=== PATIENT | female | born 1950 | race Caucasian/White ===

== ENCOUNTER 2019-04-11 16:11 | Inpatient (IN) ==
[2019-04-11] MEDS ORDERED: NS 1,000 ML IV ONE ×2 (17:51→19:53)
[2019-04-11] MEDS ORDERED: SODIUM CHLORIDE 0.9% INJ ONE (17:52)
[2019-04-11] MEDS ORDERED: PROTONIX IV ONE (17:52)
--- NOTE | 2019-04-11 17:53 | PROVIDER DOCUMENTATION ---
This chart was entered by Monica Barton Scribe, acting as scribe for Beatriz Vega MD. HPI-General Adult - General Chief Complaint: Vomiting Blood Stated Complaint: vomiting blood Time Seen by Provider: 04/11/19 17:38 Source: patient Allergies/Adverse Reactions: Patient Allergies Allergy/AdvReac Type Severity Reaction Status Date / Time No Known Allergies Allergy Verified 04/11/19 19:07 - History of Present Illness -Gen Adult Nature of Presenting Problems: 68 y/o female presents to ED with hematemesis onset just prior to arrival. Pt reports she has had 5 episodes. Pt states she had an EGD with polypectomy this morning. Estimated 3 cups of blood. Pt is alert and oriented. Location of Pain/Injury: reports: none Pain Radiation: reports: no radiation Quality of Pain: reports: none Severity: reports: mild Onset/Duration: reports: just prior to arrival Timing: reports: still present Context/Activities at Onset: reports: none Modifying Factors: improves with: nothing Associated Symptoms: reports: vomiting, other (hematemesis) Similar Symptoms Previously?: No Recently seen or treated by another doctor?: Yes (EGD/polypectomy this morning) Review of Systems - Adult - REVIEW OF SYSTEMS - ADULT Constitutional: denies: chills, fever Eyes: reports: no symptoms reported Ears, Nose, Mouth & Throat: reports: no symptoms reported Cardiovascular: denies: chest pain, palpitations Respiratory: denies: cough, shortness of breath Gastrointestinal: reports: hematemesis, vomiting. denies: abdominal pain, diarrhea, nausea Genitourinary: reports: no symptoms reported Musculoskeletal: denies: back pain, joint pain Integumentary: reports: no symptoms reported Neurological: denies: dizziness/vertigo, seizure Psychiatric: reports: no symptoms reported Endocrine: reports: no symptoms reported Hematologic/Lymphatic: reports: no symptoms reported Allergic/Immunologic: reports: no symptoms reported All Other Systems: Reviewed and Negative Past History - Adult - PAST MEDICAL HISTORY-ADULT Review of Records: reports: Old Records Reviewed, Nursing Assessment Review, Medications Reviewed Major Childhood Illnesses: reports: denies history Cardiovascular: reports: A-Fib, pacemaker Neurological: reports: CVA Endocrine/Immune: reports: Diabetes Other Conditions: reports: cataract/glaucoma - PRIOR SURGERIES/PROCEDURES Surgical/Procedure History: reports: recent surgery (EGD with polypectomy this morning (04/11/19)), EGD, pacemaker, other (cataract removal; heart sx) - IMMUNIZATION STATUS Childhood Immunizations: See Nurse Assessment Flu Vaccine: See Nurse Assessment - FAMILY HISTORY Family History: reviewed, not pertinent - SOCIAL HISTORY Smoking: non-smoker Substance Use: none/never Alcohol Use Frequency: never Living Situation: family Physical Exam-General - PHYSICAL EXAM-ADULT Initial Vital Signs Reviewed: Yes - CONSTITUTIONAL General Appearance: appears well, alert, no apparent distress, other (blood on shirt of pt) - EYES Eyes: PERRL/EOMI, pink conjunctivae - HEAD, EARS, NOSE, MOUTH & THROAT HENMT: normocephalic/atraumatic, moist mucous membranes, normal ENT inspection - NECK Neck: non-tender, full range of motion - RESPIRATORY Respiratory: chest non-tender, lungs clear, normal breath sounds - CARDIOVASCULAR Cardiovascular: irregularly irregular - GASTROINTESTINAL (ABDOMEN) Abdominal Exam: normal bowel sounds, non tender, soft - MUSCULOSKELETAL Back Exam: normal inspection, no CVA tenderness Extremity: normal range of motion, non-tender, normal gait - SKIN Integumentary: warm/dry, pallor - NEUROLOGIC Neurologic: grossly normal - PSYCHIATRIC Psych/Mental Status: normal mood/affect, normal thought content, normal thought process Progress - PLAN OF CARE/RESULTS Progress/Plan/Lab Results: Vital Signs - 8 hr 04/11/19 16:19 Temperature 97.8 F Pulse Rate 99 H Respiratory Rate 14 Blood Pressure 123/74 O2 Sat by Pulse Oximetry 99 Result Diagrams: 04/11/19 18:18 04/11/19 18:18 - REASSESSMENT Reassessment #1 Time Reassessed: 16:35 Status: improving Reassessment #2 Time Reassessed: 17:50 Status: improving - CONSULTS/PCP/HOSPITALIST Notification #1 *Consult/PCP/Hospitalist*: Dr. Bull Time Discussed: 19:28 Consult Disposition: Admit (Trasfuse 2 until if HCT drop below 27. start protonix drip, sucrlfate, NPO and Dr. Bull will see in the morning. admit.) #2 Consult: Dr. Busby Time Discussed: 19:50 Consult Disposition: Admit (He will speak with hospitalist K[employer] business administration program chair Dr. Rockwell, patient likely need procedure today.) #3 Consult: Dr. Min Time Discussed: 20:10 Consult Disposition: Admit (I confirmed with dr. min tht he got report from Dr. Lucas, I also discussed the case with him. accepted.) Departure - Departure Date of Disposition Decision: 04/11/19 Time of Disposition Decision: 20:10 DIAGNOSIS: Upper GI bleed Hematemesis Qualifiers: Nausea presence: with nausea Qualified Code(s): K92.0 - Hematemesis Anemia Qualifiers: Anemia type: other cause Other causes of anemia: other cause, not classified Qualified Code(s): D64.89 - Other specified anemias Disposition: ADMITTED INPATIENT 09 Certified Medical Emergency: Emergent Condition: Critical Referrals and Follow-Ups: Alessio Corona MD [Primary Care Provider] - - Critical Care Note This patient required my direct & personal management of CC.: No Attestation - Physician/ CASIMIRO Attestation Patient care was provided by Advanced Practice Provider:: No The physician spent face to face time with patient:: Yes Advanced Practice Provider documentation review:: Supervising physician onsite and consulted in the evaluation and care of this patient. The physician did have a face to face encounter with the patient. This chart was documented by the indicated scribe, (Monica Barton Scribe) and accurately reflects the services I performed and decisions made by me, Beatriz Doe MD, as attested by the provider's signature.
[2019-04-11 18:40] LABS: BASO# 0.03 X1000 (0.0-0.2); BASO% 0.3 % (0.0-0.8); EOS# 0.02 X1000 (0.0-0.7); EOS% 0.2 % (0.0-10.0); HEMATOCRIT 27.3 % (37.0-47.0); HEMOGLOBIN 8.5 g/dL (12.0-16.0); IMM GRAN# 0.09 X1000 (0.0-0.04); IMM GRAN% 0.8 % (0.0-0.5); LYMPH# 0.79 X1000 (1.2-3.4); LYMPH% 6.6 % (20.5-51.1); MCH 27.9 PG (27-31); MCHC 31.1 g/dL (33-37); MCV 89.5 FL (81-99); MONO% 4.2 % (1.7-9.3); MPV 11.4 FL (7.4-10.4); NEUT# 10.52 X1000 (1.4-6.5); NEUT% 87.9 % (42.2-75.2); PLT 218 X1000 (130-400); RBC 3.05 XMIL (4.2-5.4); RDW 15.6 % (11.5-14.5); WBC 11.95 X1000 (4.8-10.8)
[2019-04-11 18:44] LABS: INR 1.14; PROTIME 15.6 Seconds (11.0-16.0)
[2019-04-11 18:52] LABS: AGAP 7; ALBUMIN 3.4 g/dL (3.5-5.0); ALKALINE PHOSPHATASE 55 U/L (32-104); BUN 24 mg/dL (8-22); CALCIUM 8.3 mg/dL (8.8-10.2); CHLORIDE 106 mmol/L (98-107); COSMO 286; CREATININE 0.7 mg/dL (0.5-0.9); ESTIMATED GFR > 60; GLUCOSE 209 mg/dL (70-104); GOT 24 U/L (10-30); GPT 23 U/L (10-36); POTASSIUM 4.5 mmol/L (3.5-5.1); SODIUM 138 mmol/L (136-145); TCO2 25 mmol/L (25-35); TOTAL BILIRUBIN 0.45 mg/dL (0.20-1.00); TOTAL PROTEIN 5.1 g/dL (6.3-8.3)
[2019-04-11] MEDS: PROTONIX 80 MG in NS 80 ML IV SCH (20:53)
[2019-04-12] MEDS: HUMULIN R SUBQ SCH ×5 (06:30→21:05)
[2019-04-12] MEDS: PROTONIX 80 MG in NS 80 ML IV SCH (06:30)
[2019-04-12 08:32] LABS: HEMATOCRIT 29.1 % (37.0-47.0); HEMOGLOBIN 9.3 g/dL (12.0-16.0)
--- NOTE | 2019-04-12 08:33 | PROGRESS NOTE ---
DATE: 04/12/2019 SUBJECTIVE: As per the patient, she is feeling a little bit better. She is not complaining of shortness of breath or chest pain at this moment. Some abdominal discomfort. She is completely alert and oriented x3. OBJECTIVE: Vital Signs: Temperature 98.3 degrees, pulse 81, respiratory rate 20, blood pressure 129/59, oxygen saturation 98 on nasal cannula. HEENT: Head normocephalic, no trauma. PERRLA. Neck: Supple. No JVD. No masses. Central trachea. Chest: Clear to auscultation. Mild crepitus scattered at the bases. Cardiovascular: There is a click from previous mechanical valve replacement. Also, she has a pacemaker/defibrillator. No signs of infection. Abdomen: Soft. Mild discomfort to palpation at the level of the epigastric area. Extremities: No edema, no clubbing, no cyanosis. Neurological examination: The patient is alert. She is oriented x3. No focal motor deficits. LABORATORY: Glucose 137, pending BMP and H and H. ASSESSMENT AND PLAN: 1. Upper gastrointestinal bleed. It looks like this patient had an esophagogastroduodenoscopy with possible polypectomy yesterday morning. Then apparently she was doing well and she was tolerating oral, when she started to have hematemesis, bright red blood. Also she has been having bowel movements with dark blood and clots, twice. She has a history of atrial fibrillation, mechanical valve replacement and defibrillator. She does have diabetes, mild congestive heart failure with an ejection fraction of 45 to 50 percent on an echocardiogram done on 03/25/2018. Cardiology Department, as well as Gastroenterology and Surgery Departments were consulted. Will wait for recommendations for now. We will continue with same management, and I will put her on gentle intravenous fluids, around 35 mL/hour since she is on nothing by mouth. Also, I will add levothyroxine intravenous, half of her dose daily. 2. History of atrial fibrillation and mechanical valve replacement. For now, we are going to hold the anticoagulation. Cardiology Department has been consulted. She does have a pacemaker. Her rhythm is stable. 3. Diabetes. Continue with same management. 4. Hypothyroidism. I will give her half of the dose of her daily levothyroxine, intravenous. 5. Mild congestive heart failure, aware. Since this patient is on nothing by mouth, I will give her a really low rate of intravenous fluids at 35 mL/hour. I will wait for Cardiology recommendations. CRITICAL CARE TIME: 45 minutes. cc: Francisco Barrera MD
[2019-04-12 08:48] LABS: AGAP 8; BUN 20 mg/dL (8-22); CALCIUM 8.4 mg/dL (8.8-10.2); CHLORIDE 107 mmol/L (98-107); COSMO 280; CREATININE 0.6 mg/dL (0.5-0.9); ESTIMATED GFR > 60; GLUCOSE 130 mg/dL (70-104); POTASSIUM 4.2 mmol/L (3.5-5.1); SODIUM 138 mmol/L (136-145); TCO2 23 mmol/L (25-35)
--- NOTE | 2019-04-12 08:55 | HISTORY AND PHYSICAL ---
PRIMARY CARE PHYSICIAN: Dr. Corona. CHIEF COMPLAINT: Hematemesis. HISTORY OF PRESENT ILLNESS: This is a 68-year-old female with a history of CVA, diabetes mellitus type 2, hypertension, mechanical heart valve on anticoagulation who apparently underwent EGD with colectomy earlier today. After procedure patient started bleeding and this was cauterized. She went home and she had several more bouts of hematemesis and she started feeling weak. She called her saw maker who recommended she come to the emergency department for further evaluation management. At the time of my examination, the patient states that she had 2 more bouts of hematemesis while she was at the emergency room. However she had denied any headache, fever, chills, chest pain or any weight changes. PAST MEDICAL HISTORY: Includes CVA, diabetes mellitus type 2, hypertension, hyperlipidemia. PAST SURGICAL HISTORY: Pacemaker defibrillator, mechanical mitral valve replacement, hysterectomy, cataract surgery. ALLERGIES: No known drug allergies. CURRENT MEDICATIONS: She does not recollect. Nursing staff will reconcile. SOCIAL HISTORY: No history of smoking, alcohol or illicit drug use. FAMILY HISTORY: Positive for coronary disease in father. REVIEW OF SYSTEMS: Fourteen point review of systems is as in HPI other systems negative. PHYSICAL EXAMINATION: GENERAL: Cooperative, friendly female she is resting comfortably now. VITAL SIGNS: Temperature 97.8 degrees, pulse 99, respiration 14, blood pressure 123/74. HEENT: Atraumatic, normocephalic. Extraocular movements intact. PERRLA. NECK: No masses. CHEST: Clear to auscultation. CARDIOVASCULAR: Regular rate and rhythm. ABDOMEN: Soft. Positive bowel sounds. EXTREMITIES: No edema. NEURO: She is awake, alert, oriented x3. : No bladder distention. SKIN: Warm. LABORATORIES AND STUDIES: WBCs 11.95, hemoglobin 8.5, hematocrit 27.3, platelets 218,000, sodium 138, potassium 4.5, chloride 106, CO2 25, BUN is 24, creatinine 0.7, glucose is 209. ASSESSMENT: A 68-year-old female with a history of cerebrovascular accident, diabetes mellitus type 2, hypertension, hyperlipidemia and mechanical mitral valve replacement on anticoagulation who underwent EGD with a large polyp that was removed. Shortly after procedure she started hemorrhaging and the ulcer/polyp region was cauterized. She went home and she developed several more episodes of hematemesis and subsequently discussed with her saw maker who recommended she come to the emergency department. ED she was evaluated and due to her presenting symptoms she will require blood transfusion, admission for further management. 1. Upper active gastrointestinal bleeding. 2. Status post EGD with polypectomy. 3. Mechanical mitral valve replacement on anticoagulation. 4. Diabetes mellitus type 2. 5. Hypertension. PLAN: 1. We will admit patient to ICU. 2. Keep patient NPO. 3. Continue with blood transfusion. 4. We will consult General Surgery. 5. We will consult her saw maker also. 6. We will consult Cardiology regarding anticoagulation. 7. Monitor blood glucose and put patient on sliding scale insulin regimen. 8. Monitor blood pressure closely. 9. Will put patient on DVT prophylaxis SCD. 10. We will continue to follow and reassess make further recommendation based on patient's clinical course. cc: Don Min MD
[2019-04-12] MEDS ORDERED: DIPRIVAN 1% ONE (09:56)
[2019-04-12] MEDS ORDERED: XYLOCAINE-MPF 2% ONE (09:57)
--- NOTE | 2019-04-12 10:34 | GASTROENTEROLOGY CONSULTATION ---
DATE: 04/12/2019 REASON FOR CONSULTATION: Hematemesis, acute blood loss anemia. HISTORY OF PRESENT ILLNESS: Ms. Valerie Vallejo is a 68-year-old woman with past medical history significant for mechanical mitral valve replacement, on Coumadin, history of atrial fibrillation status post pacemaker, noninsulin-dependent diabetes, history of colonic polyps, who presents with 5 to 6 episodes of hematemesis with bright red blood and some clots. This started after having an EGD yesterday with removal of a gastric polyp. She said that she went home that day and around 3 p.m. started having vomiting after her lunch. She denies any dizziness, lightheadedness, abdominal pain, chest pain, shortness of breath. She has had 3 stools that have been dark. She has none since yesterday afternoon. She has had a colonoscopy in the past, her last was in 2012. A colonoscopy was planned yesterday. However, given her bleeding from her polyp during her procedure that was treated, the colonoscopy was canceled. Her primary GI is Dr. Zeng. PAST MEDICAL HISTORY: As per HPI, otherwise no other history. PAST SURGICAL HISTORY: Mechanical valve repair, status post pacemaker ICD. MEDICATIONS: She is on Coumadin, Coreg, digoxin, furosemide, levothyroxine, lisinopril, metformin, spironolactone, simvastatin. ALLERGIES: No known drug allergies. FAMILY HISTORY: No family history of GI diseases. SOCIAL HISTORY: No smoking, alcohol or drug use. PHYSICAL EXAMINATION: Vital signs: On admission, she was tachycardic to 106, afebrile, blood pressure was in the 120s over 50s to 70s, respiratory rate 14, O2 saturation 98% on room air. General: The patient is awake, alert, oriented, no acute distress. HEENT: Sclerae anicteric. Moist mucous membranes. Extraocular motor intact. Neck: Supple. No JVD. Cardiac: Regular rate and rhythm. No murmurs. Lungs: Clear to auscultation bilaterally. Abdomen: Soft, nontender, nondistended. Normoactive bowel sounds. No rebound or guarding. Extremities: No clubbing, cyanosis, or edema. Neurologic: Nonfocal. LABORATORY DATA: White count of 11.95, hemoglobin 8.5, platelets of 218,000. INR of 1.14. Sodium 138, potassium 4.5, chloride 106, bicarb 25, BUN 24, creatinine 0.7, glucose of 209. LFTs are unremarkable. Unknown baseline hemoglobin. ASSESSMENT AND PLAN: Ms Valerie Vallejo is a 68-year-old woman with a history of mechanical mitral valve on Coumadin, hypertension, noninsulin-dependent diabetes, who presents with acute blood loss anemia in the setting of hematemesis and recent EGD with gastric polyp removal. She was admitted to the ICU and was fluid resuscitated and started on a PPI drip. Her hemoglobin this morning after transfusion of 1 packed red blood cells is 9.3. Her Coumadin has been held and her INR is 1.14. She is currently n.p.o. We will plan for diagnostic EGD today. Continue to trend her hemoglobin and hematocrit every 6 to 8 hours. Transfuse as needed to maintain a hemoglobin between 7 and 8. Recommend continue to hold home blood pressure medications. Sliding scale insulin for diabetes. We will follow with you. Please call with any questions or concerns.
[2019-04-12] MEDS ORDERED: HEPARIN 25,000 UNITS/D5W 25,000 UNIT/250 ML IV.SOLN IV SCH ×4 (11:00→22:24)
[2019-04-12] MEDS: NS 1,000 ML IV SCH (11:33)
[2019-04-12] MEDS: ZOFRAN IV PRN (11:33)
--- NOTE | 2019-04-12 11:37 | OPERATIVE NOTE ---
PROCEDURE DATE: 04/12/2019 PROCEDURE: Upper gastrointestinal endoscopy. PROVIDER: Quincy Jones MD. INDICATIONS: Hematemesis, melena, acute blood loss anemia, history of gastric polyp removal, complicated by post polypectomy bleed on 04/11/2019. MEDICATIONS: Monitored anesthesia care. DETAILS OF OPERATION: Prior to the procedure, a history and physical was performed. The patient medications and allergies were reviewed. The patient's tolerance to previous anesthesia was also reviewed. The risks and benefits of the procedure and sedation options and risks were discussed with the patient. All questions were answered and informed consent was obtained. After reviewing the risks and benefits, the patient was deemed in satisfactory condition to undergo the procedure. The endoscope was passed under direct visualization. Throughout the procedure, the patient's blood pressure, pulse and oxygen saturations were monitored continuously. The endoscope was introduced in the mouth and advanced to the second part of the duodenum. The upper GI endoscopy was accomplished without difficulty. The patient tolerated the procedure well. COMPLICATIONS: No immediate complications. ESTIMATED BLOOD LOSS: Minimal. FINDINGS: There were 2 small clean base esophageal ulcers about 0.5 mm in diameter at the GE junction. There was no stigmata of recent bleeding there. Within the gastric body, there was a gastric ulcer at the site of recent polypectomy with a large adherent clot without active bleeding. 10 mL of epinephrine diluted 1:10,000 were injected in 4 quadrants around the ulcer. The clot was snared off and an Endo clip was noted within the clot. At the base of the ulcer, there remained a small residual clot in the area. 4 Endoclips were deployed; was was dislodged. The duodenal bulb and second portion of the duodenum were normal. There was no bleeding at the end of the procedure. IMPRESSION: Two nonbleeding esophageal ulcers. Post polypectomy gastric ulcer treated with epinephrine and Endo clips. Normal duodenum. RECOMMENDATIONS: Keep patient nothing per oral. Continue fluid resuscitation. Transition IV PPI drip to IV 40 mg twice daily. Continue to trend hemoglobin and hematocrit every 6 to 8 hours. Transfuse as needed to maintain hemoglobin between 7 and 8. Start heparin drip as per Primary Team given presence of mechanical mitral valve and need for anticoagulation. We will follow with you. Please call with any questions or concerns. [facility]
--- NOTE | 2019-04-12 12:58 | CARDIOLOGY CONSULTATION ---
DATE: 04/12/2019 HISTORY OF PRESENT ILLNESS: Patient admitted with hematemesis, has mechanical mitral valve. Cardiology was consulted for anticoagulation recommendations and follow. A 68-year-old, lady with a history of mechanical mitral valve replacement, hypertension, CVA, TIA in the past, diabetes. Underwent an upper GI endoscopy with polypectomy. After the procedure, patient noticed some bleeding. Then this was cauterized. She went home and had hematemesis and melena. Came to the emergency room and was admitted. The patient today underwent upper GI endoscopy. Was noted to have post polypectomy gastric ulcer which was treated with epinephrine and Endo clip. There was 2 nonbleeding esophageal ulcers also noted. Duodenum was normal. The patient has been started back on IV heparin, adjust as per her PTT. PAST MEDICAL HISTORY: 1. History of cardiomyopathy. 2. Systolic heart failure. 3. Moderate aortic stenosis with moderate aortic insufficiency. 4. Mitral valve replacement, mechanical, at [facility] by Dr. Murillo on 07/16/2012. 5. Coumadin therapy, has had bradycardia-tachycardia syndrome, status post AICD placement and [facility] device on 07/22/2012 at [place]. 6. History of atrial fibrillation. 7. Hypertension. 8. Hyperlipidemia. 9. History of anemia. 10. CVA. 11. Hypothyroidism. 12. Diabetes. HOME MEDICATIONS: Included Coumadin as directed, digoxin 125 mcg a day, Coreg 6.25 b.i.d., spironolactone 25, lisinopril 5, levothyroxine 75, Lasix 20, simvastatin 20, iron supplements, metformin 500, glimepiride 2 mg orally. SOCIAL HISTORY: She does not smoke. Does not drink. REVIEW OF SYSTEMS: Cardiovascular System: No chest pain suggestive of angina. There are no palpitations. Central Nervous System: No focal weakness to suggest a CVA or TIA. Genitourinary System: There is no dysuria or hematuria. GI System: As above. PHYSICAL EXAMINATION: Vital Signs: Blood pressure 120/70. Mechanical valve sounds noted. Respiratory System: Normal air entry. There are no crepitations or rhonchi. Abdomen: Soft. Central Nervous System: Was sedated, alert, moving extremities LABORATORY EXAMINATION: Revealed sodium 138, potassium 4.2, BUN 20, creatinine 0.8, total protein 5.1, albumin 3.4, glucose 168. Hemoglobin 8.5, hematocrit 27.3. Today, hemoglobin 9.3, hematocrit 29.1, with a platelet count of 218,000, WBC 11.97. INR 1.14. ASSESSMENT AND PLAN: 1. Ms. Valerie Vallejo is a 68-year-old, lady with a history of cerebrovascular accident, atrial fibrillation, diabetes, hypothyroidism, status post a mechanical valve, mitral replaced in the past. Has automatic implantable cardioverter defibrillator. 2. Admitted with a gastrointestinal bleed. Underwent polypectomy and had an upper gastrointestinal endoscopy. The following procedure was done, nonbleeding ulcers, esophageal, were noted, postpolypectomy gastric ulcer treated with epinephrine and Endoclip. Currently, she is stable. RECOMMENDATIONS: 1. She has been started on IV heparin. We will follow PTT and adjust accordingly. 2. We will restart Coumadin once she has not had any further bleeds. We will check her CBC, hematocrit on a daily basis. 3. She is nauseous at the present time. Recommend followup with medications. 4. Hypertension, diabetes. I have not made any changes to her medication. 5. She recently had an echocardiogram. Please see detailed echocardiogram report dictated. Thank you for the consult. We will follow hospital course. cc: Deo Aguilar MD
[2019-04-12 13:52] LABS: HEMATOCRIT 30.9 % (37.0-47.0)
--- NOTE | 2019-04-12 18:54 | GENERAL SURGERY CONSULTATION ---
DATE: 04/12/2019 REASON FOR CONSULTATION: Gastric bleeding secondary to gastric cancer and polypectomy. HISTORY OF PRESENT ILLNESS: This is a 68-year-old female who has had some anemia for several months, specifically iron deficiency anemia. She underwent fecal occult blood testing by Dr. Hall, which was positive, and then she underwent EGD yesterday by Dr. Zeng. He found a large polypoid mass in the greater curve of the stomach. He resected it; however, there was a vessel underneath and it was bleeding. He did inject it and put a clip on it, and it began to clot, but was still oozing. She was then admitted for further observation. She has had a couple of bloody bowel movements overnight, but has been hemodynamically stable. She underwent a repeat EGD by Dr. Jones this morning which showed an adherent clot and no active bleeding. He removed the clot and there was a smaller clot underneath it which he kept in place. He then injected it with epinephrine again and placed 3 hemoclips around it. The pathology report has come back positive for moderately differentiated adenocarcinoma. Dr. Zeng has informed me that he did not completely resect it. Currently, she is in the ICU on a heparin drip because of a mechanical mitral valve. She has some nausea and mild upper abdominal discomfort, but no severe pain. PAST MEDICAL HISTORY: 1. Mitral valve replacement. 2. Stroke. 3. Type 2 diabetes. 4. Hypertension. 5. Hyperlipidemia. 6. History of cardiomyopathy. 7. Systolic heart failure. 8. Moderate aortic stenosis with moderate aortic insufficiency. 9. History of atrial fibrillation. PAST SURGICAL HISTORY: 1. Mechanical mitral valve replacement. 2. Pacemaker/defibrillator placement. 3. Hysterectomy. 4. Cataract surgery. ALLERGIES: No known drug allergies. SOCIAL HISTORY: Negative for tobacco, alcohol, or illicit drug use. FAMILY HISTORY: Negative for cancer. REVIEW OF SYSTEMS: Ten systems were reviewed and negative except as noted above. CURRENT MEDICATIONS: 1. Heparin drip. 2. Synthroid. 3. Protonix IV. HOME MEDICATIONS: 1. Coumadin. 2. Coreg. 3. Digoxin. 4. Furosemide. 5. Levothyroxine. 6. Lisinopril. 7. Metformin. 8. Spironolactone. 9. Simvastatin. PHYSICAL EXAMINATION: Vital Signs: Temperature 98.8 degrees, pulse 97 to 108, blood pressure 150/48, O2 saturation 95%. General: She is overall weakened in appearance and somnolent, but arousable and able to answer questions and follow commands. HEENT: Normocephalic, atraumatic. Extraocular muscles intact. Pupils equal, round, reactive to light. Sclerae anicteric. Neck: Supple. No thyromegaly. CV: Regular rate and rhythm. Respiratory: No increased work of breathing. She has bilateral breath sounds. GI: Soft. Minimal tenderness. Nondistended. No organomegaly or mass. No hernias. Extremities: No clubbing, cyanosis, or edema. Skin: Warm and dry. No rash. Musculoskeletal: Moves all extremities equally and well. LABORATORY: White blood cell count 11.9, hemoglobin 8.5, 9.3, and 10.0 over the last 18 hours, hematocrit 27.3, 29.1, and 30.9 over the last 18 hours, and platelet count 218,000. INR 1.1. Complete metabolic profile reviewed and unremarkable. Albumin is 3.4. IMAGING: None at this time. ASSESSMENT AND PLAN: A 68-year-old female with newly diagnosed gastric cancer and upper gastrointestinal bleed. This is complicated by her mechanical heart valve requiring anticoagulation. Currently, she appears to be stable and not actively bleeding. We will pursue further staging with CT scan of the chest, abdomen, and pelvis, and pending these results and discussion with Dr. Hall, her oncologist, we will either proceed with definitive cancer surgery, which would include total gastrectomy, versus outpatient endoscopic ultrasound for further staging of the tumor and consideration of neoadjuvant chemotherapy. Neoadjuvant chemotherapy may be complicated by the propensity of this lesion to bleed and the requirement for more urgent surgery. She is on every 6 hour hemoglobin and hematocrit checks at this time. Dr. Jones is going to speak to Dr. Hall today, and we have informed the family of our plans and they understand. cc: Tobi Rockwell MD
--- NOTE | 2019-04-12 19:12 | Diag Imaging Result Doc PS360 ---
EXAM: CT THORAX/ABD/PELVIS W/WO CON 04/12/2019 HISTORY: newly diagnosed gastric cancer TECHNIQUE: This exam was performed using automated exposure control, adjustment of mA or kV according to patient size, and/or use of iterative reconstruction technique. COMMENT: Thorax: There are no previous studies. There are bilateral pleural effusions. There has been sternotomy. There are coronary calcifications. There is a mitral valve prosthesis. There are no apparent filling defects in the pulmonary arteries. The aorta is normal in caliber. There is no evidence of dissection. There is no evidence of significant adenopathy. There is some fluid around the esophagus. There are ill-defined opacities in the posterior costophrenic sulcus of the right lower lobe in the parahilar portions of the left upper lobe and the superior segment of the left lower lobe. There is particularly dense opacity in the left superior segment. The possibility of pneumonia is suggested. The regional skeleton appears to be intact. ABDOMEN: There is mucosal thickening in the distal esophagus and gastric fundus. There is also some apparent thickening in the antrum. The antrum is not well distended however. There is a small calyceal stone in the lower mid right collecting system. There are numerous small calcifications in the gallbladder. The spleen is at the upper limits of normal in size. The right adrenal gland is enlarged with a lateral lobe nodule measuring over 15 mm. There is a brightly enhancing nodule in the lower right hepatic lobe measuring over 12 mm in AP dimension. This may represent a hemangioma. The kidneys are without evidence of hydronephrosis or mass. There is no evidence of significant adenopathy. The pancreas is normal in appearance. There is no evidence of bowel obstruction. Pelvis: The appendix is not enlarged. There are no masses. The urinary bladder is unremarkable in appearance. There is no evidence of free fluid. There is a bone island in the left side of the sacrum. There are some degenerative disc and facet changes in the lumbar spine. IMPRESSION: Mucosal thickening in the distal esophagus and gastric fundus. Bilateral pleural effusions. Nonspecific pulmonary opacities which are likely related to pneumonia. No definite evidence of metastatic disease. Electronically signed by Saurabh Jay 04/12/2019 7:09 PM
[2019-04-12 19:53] LABS: HEMATOCRIT 30.7 % (37.0-47.0); HEMOGLOBIN 9.7 g/dL (12.0-16.0)
[2019-04-12] MEDS ORDERED: HEPARIN IV ONE (20:40)
[2019-04-12] MEDS: SODIUM CHLORIDE 0.9% INJ SCH (21:17)
[2019-04-12] MEDS: PROTONIX IV SCH (21:17)
[2019-04-13 01:38] LABS: HEMATOCRIT 25.8 % (37.0-47.0); HEMOGLOBIN 8.1 g/dL (12.0-16.0)
[2019-04-13 04:56] LABS: BASO# 0.03 X1000 (0.0-0.2); BASO% 0.3 % (0.0-0.8); EOS# 0.01 X1000 (0.0-0.7); EOS% 0.1 % (0.0-10.0); HEMATOCRIT 27.3 % (37.0-47.0); HEMOGLOBIN 8.7 g/dL (12.0-16.0); IMM GRAN# 0.11 X1000 (0.0-0.04); IMM GRAN% 1.1 % (0.0-0.5); LYMPH# 1.22 X1000 (1.2-3.4); LYMPH% 11.8 % (20.5-51.1); MCH 29.1 PG (27-31); MCHC 31.9 g/dL (33-37); MCV 91.3 FL (81-99); MONO# 0.81 X1000 (0.11-0.59); MONO% 7.9 % (1.7-9.3); MPV 10.7 FL (7.4-10.4); NEUT# 8.12 X1000 (1.4-6.5); NEUT% 78.8 % (42.2-75.2); PLT 176 X1000 (130-400); RBC 2.99 XMIL (4.2-5.4); RDW 16.4 % (11.5-14.5)
[2019-04-13 05:10] LABS: AGAP 8; BUN 11 mg/dL (8-22); CALCIUM 8.3 mg/dL (8.8-10.2); CHLORIDE 112 mmol/L (98-107); COSMO 290; CREATININE 0.7 mg/dL (0.5-0.9); ESTIMATED GFR > 60; GLUCOSE 134 mg/dL (70-104); POTASSIUM 3.8 mmol/L (3.5-5.1); SODIUM 145 mmol/L (136-145); TCO2 25 mmol/L (25-35)
[2019-04-13] MEDS: HUMULIN R SUBQ SCH ×4 (06:11→21:49)
[2019-04-13] MEDS: SODIUM CHLORIDE 0.9% INJ PRN (06:18)
[2019-04-13] MEDS: SYNTHROID IV SCH (06:18)
[2019-04-13] MEDS: PROTONIX IV SCH ×2 (08:04→21:46)
[2019-04-13] MEDS: NS 1,000 ML IV SCH (08:04)
[2019-04-13] MEDS: SODIUM CHLORIDE 0.9% INJ SCH ×2 (08:04→21:47)
--- NOTE | 2019-04-13 08:10 | PROGRESS NOTE ---
DATE: 04/13/2019 SUBJECTIVE: This patient seems to be stable, hemoglobin today is 8.7, and WBC is 10.3. She is still on heparin drip. Kidney function is stable. She is complaining of some abdominal discomfort. I believe the plan is to stop the heparin at some point today in the morning, and go for surgery, likely gastrectomy. Gastroenterology Department as well as Surgery Department and Hematology/Oncology Department on board. OBJECTIVE: Vital Signs: Temperature 97.8 degrees, pulse 88, respiratory rate 22, blood pressure 145/52, and oxygen saturation 97% on 4 L of nasal cannula. HEENT: Head normocephalic. No trauma. PERRLA. Neck: Supple. No JVD. No masses. Central trachea. Chest: Clear to auscultation. No wheezing. No rales. Abdomen: Soft. There is some tenderness to palpation at the level of the epigastric area and periumbilical area. Positive bowel sounds. Extremities: No edema. No clubbing. No cyanosis. Neurological: This patient is alert. She is oriented. No focal deficits. LABORATORY: WBC 10.3, hemoglobin 8.7, hematocrit 27.3, and platelets 176,000. Sodium 145, potassium 3.8, chloride 112, bicarbonate 25, BUN 11, creatinine 0.7 glucose 134, and calcium 8.3. ASSESSMENT AND PLAN: 1. Upper GI bleed. It looks like this patient had an EGD with possible polypectomy 2 days ago in the morning. Apparently, she was doing well after the procedure and she was tolerating p.o. Then, she started having hematemesis, again. She was readmitted and a new upper endoscopy was done yesterday again where they found 2 small clean based esophageal ulcers about 0.5 mm in diameter at the GE junction. There was not stigmata of recent bleeding there. Within the gastric body, there was a gastric ulcer at the site of recent polypectomy with a large clot without active bleeding. 10 mL of epinephrine diluted were injected in 4 quadrants around the ulcer. The clot was snared off, and the Endoclip was noted within the clot. At the base of the ulcer, there remained a small residual clot in the in the area. Four Endoclips were deployed, one came off to prevent recurrent bleeding. The duodenal bulb and second portion of the duodenum were normal. There was no bleeding at the time of the procedure. The patient was transferred back to the ICU. She was doing good. She was placed on heparin drip due to her history of mechanical valve. Apparently, the pathology showed a gastric cancer. Surgery Department and Hematology Department were notified. It looks like today she will have surgery, likely a gastrectomy. 2. Gastric cancer as above. 3. History of atrial fibrillation with mechanical valve replacement. For now, we will continue with heparin drip. Cardiology Department as well as Gastroenterology Department on board. Surgery will do a procedure today so likely the heparin drip will be stopped before the procedure. 4. Diabetes. Continue with same management. 5. Hypothyroidism. Continue with IV levothyroxine. 6. Mild CHF, aware. We will continue with gentle IV fluids. Cardiology on board. 7. Anemia, likely due to acute blood loss. We will monitor closely. She is getting an hemoglobin and hematocrit every 6 hours. 8. Yesterday, we did a chest, abdomen and pelvic CT scan with and without contrast that showed mucosal thickening in the distal esophagus and gastric fundus, bilateral pleural effusion, nonspecific pulmonary opacities which are likely related to pneumonia. No definite evidence of metastatic disease. This patient is not having symptoms or signs of pneumonia on my physical exam. She does have some decreased breath sounds at the bases, but she is not coughing. No fever and the leukocyte count is normal so I will continue with the same management for now. CRITICAL CARE TIME: 35 minutes. cc: Francisco Barrera MD
[2019-04-13 09:32] LABS: HEMATOCRIT 28.7 % (37.0-47.0)
--- NOTE | 2019-04-13 09:32 | GENERAL SURGERY PROGRESS NOTE ---
DATE: 04/13/2019 SUBJECTIVE: The patient denies any abdominal pain overnight. She did have one maroon stool this morning. OBJECTIVE: Vital Signs: She is afebrile. Vital signs are stable. Urine output 1300 mL. General: She is awake, alert, oriented x4, in no acute distress. CV: Regular rate and rhythm. Respiratory: Bilateral breath sounds. No work of breathing. GI: Soft, nontender, nondistended. LABORATORY: White blood cell count 10, hemoglobin 8.7, hematocrit 27.3. Electrolytes reviewed and unremarkable. IMAGING: Her chest, abdomen, and pelvis CT scan was reviewed. There is some mucosal thickening of the distal esophagus and gastric fundus. There are bilateral pleural effusions which are not particularly large. There are some nonspecific pulmonary opacities which may be early pneumonia, but there is no evidence of any metastatic disease. ASSESSMENT AND PLAN: A 68-year-old female with newly diagnosed gastric adenocarcinoma. She was admitted for upper gastrointestinal bleed secondary to the biopsy of the gastric mass. That appears to be stable. We are planning diagnostic laparoscopy and total gastrectomy today with a feeding jejunostomy placement. She is on a heparin drip for her mechanical heart valve. This will be turned off prior to surgery and restarted as appropriate in the postoperative period. We have already discussed the risks, benefits, and alternatives with her and her , and they understand and agree to proceed. cc: Tobi Rockwell MD
--- NOTE | 2019-04-13 10:44 | HEMO/ONC CONSULTATION ---
DATE: 04/13/2019 CHIEF COMPLAINT: Possible gastric cancer. HISTORY OF PRESENT ILLNESS: Ms. Vallejo is a 68-year-old female, who presented to the emergency department on 04/11/2018. The patient says that she had an EGD with polypectomy prior that morning. The patient then at home started having increasing amounts of abdominal pain. Then, started having hematemesis prior to arrival. The patient had heart pounding and underwent anticoagulation. Since being admitted, patient had another EGD; was found to have 2 nonbleeding esophageal ulcers at that time and a gastic ulcer. Surgery has been consulted for further evaluation as well. Ms. Vallejo is known to us in our clinic where she has been following up for iron deficiency and B 12 deficiency. The patient last received a dose of IV iron on 04/01/2019. PAST MEDICAL HISTORY: Includes CVA, diabetes mellitus type 2, hypertension, hyperlipidemia, iron deficiency. PAST SURGICAL HISTORY: Pacemaker defibrillator, mechanical mitral valve replacement, hysterectomy, cataract surgery. ALLERGIES: No known drug allergies. SOCIAL HISTORY: Denies any tobacco, alcohol or illicit drug use. FAMILY HISTORY: Coronary artery disease. HOME MEDICATIONS: Coreg, Lovenox, Lasix, Synthroid, lisinopril, Glucophage, simvastatin, spironolactone and Coumadin. REVIEW OF SYSTEMS: Negative, other than in the HPI. PHYSICAL EXAM: Vital Signs: Temperature 97.3 degrees, heart rate 87, respiratory rate 23, blood pressure 129/60, satting 98% on nasal cannula. General: Patient is awake, lying in bed, no acute distress noted. HEENT: Anicteric. Pupils PERRLA. Mucous membranes dry. Neck: Supple. Trachea midline. No JVD. Lymph node survey: No palpable lymphadenopathy. Cardiovascular: S1, S2. Regular rate and rhythm. Chest: Bilateral breath sounds. Clear to auscultation. Abdomen: Soft, nontender. Bowel sounds present in all 4 quadrants. Skin: Warm, dry, and intact. Neurologic: Alert and oriented x3. No focal deficits noted. LABORATORY DATA: White blood cell count 10.30, hemoglobin 9.7, hematocrit 27.3, platelets are 2166. Potassium 3.8, BUN 11, creatinine 0.7. RADIOLOGY RESULTS: CT of chest, abdomen and pelvis shows mucosal thickening, polyps, gastric ulcers, bilateral pleural effusions, and pulmonary opacities which are likely related to pneumonia, and does have definite evidence of metastatic disease. ASSESSMENT AND PLAN: 1. Possible gastric cancer: The patient recently had esophagogastroduodenoscopy with polypectomy prior to coming to the emergency department that day. Pathology results are pending on that. The patient, due to possible gastric cancer, will be having laparotomy with Dr. Rockwell. Depending on what he find there, further plans will be made at that time. We will continue to monitor and follow along at this time. 2. Upper gastrointestinal bleed: The patient is status post esophagogastroduodenoscopy, where she was found to have gastric ulcers and was cauterized at that time. The patient also had polypectomy then. Continue to monitor closely. Continue to transfuse as needed. Continue recommendations per Gastroenterology. 3. Anemia: Hemoglobin and hematocrit stable, with hemoglobin less than 8.7 and hematocrit 27.3. Continue to monitor closely and transfuse as needed. 4. Atrial fibrillation with mechanical valve replacement: Continue recommendations per Cardiology and Primary Medical Team. 5. Diabetes. Continue recommendations per Primary Medical Team. Plan of care discussed with Dr. Hall. Dictated by AUDREY Jarquin for Eddie Hall MD Patient seen and examined. As above. Patient with known mechanical valve on anticoagulation. Recently however she was noted to be heme-positive and we referred her to GI for evaluation. EGD revealed 2 small ulcers in the esophagus and a polypoid mass in the stomach. Polypectomy was performed and pulmonary biopsies revealed adenocarcinoma. She was admitted with GI bleeding several hours after her EGD. Since admission repeat EGD has been performed by Dr. Brumfield and reportedly she was noted to have another and clot in the gastric ulcer. Her bleeding has stopped. Proceed with laparoscopy and if negative, plan to do a gastric cancer surgery. If laparoscopy positive for metastatic malignancy, plan to perform a simple resection of the bleeding ulcer area. Plan discussed with Dr. Rockwell. Continue anticoagulation for mechanical valve per cardiology. Eddie Hall M.D. cc: Eddie Hall MD [facility]
[2019-04-13] MEDS ORDERED: DIPRIVAN 1% ONE (11:37)
[2019-04-13] MEDS ORDERED: XYLOCAINE-MPF 2% ONE (11:37)
[2019-04-13] MEDS ORDERED: SODIUM CHLORIDE 0.9% 10 ML ONE (11:38)
[2019-04-13] MEDS ORDERED: NORCURON ONE (11:38)
[2019-04-13] MEDS ORDERED: QUELICIN (DOSE) ONE (11:39)
[2019-04-13 12:26] LABS: HEMATOCRIT 28.1 % (37.0-47.0); HEMOGLOBIN 8.8 g/dL (12.0-16.0)
[2019-04-13] MEDS ORDERED: INVANZ 1 GM/NS 1 GM/50 ML IVPB IV ONE (12:30)
[2019-04-13] MEDS ORDERED: SENSORCAINE 0.5%-EPI 1:200,000 ONE (12:47)
[2019-04-13] MEDS ORDERED: LR 1,000 ML ONE ×2 (12:47→14:13)
--- NOTE | 2019-04-13 13:08 | EKG Report ---
Test Performed on : 04/13/2019 12:57:49 PM Test Reason : DR ORDERED Blood Pressure : / mmHG Vent. Rate : 135 BPM Atrial Rate : 096 BPM P-R Int : 000 ms QRS Dur : 086 ms QT Int : 310 ms P-R-T Axes : 000 042 237 degrees QTc Int : 465 ms Atrial fibrillation. with rapid ventricular response. with premature ventricular or aberrantly conduc melissa complexes. Posterior infarct , possibly acute ST & T wave abnormality, consider inferolateral ischemia ACUTE OK / STEMI Abnormal ECG No previous ECGs available Confirmed by Chris JEAN-BAPTISTE, Gio Ogden ([id number]) on 04/15/2019 10:52:46 AM
[2019-04-13] MEDS ORDERED: EXPAREL 1.3% ONE (14:02)
[2019-04-13] MEDS ORDERED: SODIUM CHLORIDE 0.9% ONE (14:03)
[2019-04-13] MEDS ORDERED: LANOXIN IV ONE (14:24)
[2019-04-13] MEDS ORDERED: CARDIZEM ONE (14:25)
[2019-04-13] MEDS: MARCAINE 0.25% ONE ×2 (15:24→19:17)
[2019-04-13] MEDS: MARCAINE 0.25% PF/EPI 1:200,000 ONE ×2 (15:25→18:18)
[2019-04-13 15:27] LABS: URINE SOURCE CATH
[2019-04-13] MEDS ORDERED: OFIRMEV 1000 MG/ISOTONIC SOLN 1,000 MG/100 ML BOTTLE ONE (15:29)
[2019-04-13] MEDS ORDERED: NEO-SYNEPHRINE ONE (15:29)
[2019-04-13 15:31] LABS: BILIRUBIN URINE NEGATIVE (NEGATIVE); BLOOD URINE NEGATIVE (NEGATIVE); COLOR YELLOW; GLUCOSE URINE NEGATIVE (NEGATIVE); KETONE URINE TRACE mg/dL (NEGATIVE); LEUKOCYTES URINE NEGATIVE (NEGATIVE); NITRITE URINE NEGATIVE (NEGATIVE); PROTEIN URINE NEGATIVE (NEGATIVE); TURBIDITY URINE CLEAR (CLEAR); UR EPITHELIAL CELLS <10 /HPF (<10); URINE BACTERIA NEGATIVE /HPF; URINE RBC <10 /HPF (<10); URINE WBC <10 /HPF (<10); UROBILINOGEN URINE NORMAL (NORMAL)
[2019-04-13] MEDS ORDERED: ZOFRAN ONE (15:37)
[2019-04-13] MEDS ORDERED: DECADRON ONE (16:11)
[2019-04-13] MEDS ORDERED: ROBINUL ONE (18:15)
[2019-04-13] MEDS ORDERED: FENTANYL ONE (18:32)
[2019-04-13] MEDS ORDERED: CARDIZEM 125/NS 125 MG/125 ML IVPB IV SCH (19:00)
[2019-04-13] MEDS ORDERED: CORDARONE 360 MG/D5W 360 MG/200 ML IV.SOLN IV ONE (19:04)
--- NOTE | 2019-04-13 19:29 | Diag Imaging Result Doc PS360 ---
EXAM: CHEST-PORTABLE - 04/13/2019 HISTORY: status post central line and laparotomy TECHNIQUE: Portable chest COMPARISON: 04/12/2019 CT thorax FINDINGS: There is a right subclavian central venous catheter with its tip at or near the cavoatrial junction. There is no evidence of pneumothorax. There is mild cardiomegaly. There is a prosthetic mitral valve. There are hazy bilateral infiltrates which are most dense at the left perihilar region. These may relate to pulmonary edema and/or pneumonia. There is a nasogastric tube which can be followed to the stomach. IMPRESSION: Tip of central venous catheter at or near caval atrial junction. No evidence of pneumothorax. The edema and/or pneumonia, most prominent at the left perihilar region. Mild cardiomegaly. Electronically signed by Jerson Novoa 04/13/2019 7:27 PM
[2019-04-13 20:30] LABS: HEMATOCRIT 28.5 % (37.0-47.0); HEMOGLOBIN 8.8 g/dL (12.0-16.0)
[2019-04-13] MEDS ORDERED: HEPARIN SUBQ ONE (20:39)
[2019-04-13] MEDS ORDERED: DILAUDID IV PRN (20:46)
[2019-04-13] MEDS: DILAUDID IV PRN (21:39)
--- NOTE | 2019-04-13 23:35 | PROVIDER PROGRESS NOTE ---
Progress Note SUBJECTIVE: No acute overnight events. No N/V/F, CP, SOB, abdominal pain. She had 3 melenic stools since EGD yesterday; however, she has not required further blood transfusion. OBJECTIVE: Last Vital Signs Temp 98.1 F 04/13/19 11:00 Pulse 116 H 04/13/19 19:04 Resp 28 H 04/13/19 19:04 BP 101/68 04/13/19 19:01 Pulse Ox 95 04/13/19 19:04 Height 5 ft 6 in Weight 129 lb 9.6 oz GEN: awake, alert, NAD HEENT: anicteric, MMM, EOMI NECK: supple, no JVD PULM: CTAB, no wheezing CV: irregularly irregular, MV click ABD: soft NT/ND, NABS EXT: no cce NEURO: nonfocal LABS: 04/13/19 04/13/19 04/13/19 01:25 04:20 04:20 WBC 10.30 Hgb 8.1 L D Plt Count 176 Sodium 145 Potassium 3.8 Chloride 112 H Carbon Dioxide 25 BUN 11 Creatinine 0.7 Glucose 134 H EGD 04/12 IMPRESSION: Two nonbleeding esophageal ulcers. Post polypectomy gastric ulcer (1.5cm) treated with epinephrine and Endo clip x3. Normal duodenum. CT chest, abdomen, and pelvis were negative for metastasis. ASSESSMENT AND PLAN: Ms Valerie Vallejo is a 68-year-old woman with a history of mechanical mitral valve on Coumadin, hypertension, noninsulin-dependent diabetes, who presents with acute blood loss anemia in the setting of hematemesis and recent EGD with gastric polyp removal. EGD yesterday showed two non-bleeding esophageal ulcers and post-polypectomy gastr ulcer treated with epinephrine and endoclip x4. Preliminary pathology from gastric polyp shows moderately differentiated adenocarcinoma. Patient went to OR today for laprascopic staging. #GIB: 2/2 resection on gastric mass and postpolypectomy ulcer: treated endoscopically - trending H/H, transfuse prn goal hgb 7-8 - continue IV PPI BID - IVFs - patient went to OR for surgery today #Gastric cancer: discussed plan with Dr. Hall yesterday; formal consultation from oncology today #Mechanical valve: on heparin drip #Afib: heparin as above Will follow with you. Please call with questions
[2019-04-14] MEDS: DILAUDID IV PRN ×7 (00:59→20:34)
[2019-04-14 01:06] LABS: HEMATOCRIT 26.9 % (37.0-47.0); HEMOGLOBIN 8.4 g/dL (12.0-16.0)
[2019-04-14] MEDS ORDERED: CORDARONE 540 MG in D5W 289.2 ML IV ONE (02:00)
[2019-04-14 06:16] LABS: HEMATOCRIT 26.5 % (37.0-47.0); HEMOGLOBIN 8.2 g/dL (12.0-16.0); MCH 28.6 PG (27-31); MCHC 30.9 g/dL (33-37); MCV 92.3 FL (81-99); MPV 11.4 FL (7.4-10.4); RBC 2.87 XMIL (4.2-5.4); RDW 16.5 % (11.5-14.5); WBC 22.52 X1000 (4.8-10.8)
[2019-04-14] MEDS: SYNTHROID IV SCH (06:28)
[2019-04-14] MEDS: SODIUM CHLORIDE 0.9% INJ PRN (06:29)
[2019-04-14 06:37] LABS: AGAP 8; ALB/GLOB RATIO 1.6; ALBUMIN 2.7 g/dL (3.5-5.0); ALKALINE PHOSPHATASE 43 U/L (32-104); BUN 12 mg/dL (8-22); CALCIUM 7.4 mg/dL (8.8-10.2); CHLORIDE 109 mmol/L (98-107); COSMO 288; CREATININE 0.6 mg/dL (0.5-0.9); ESTIMATED GFR > 60; GLUCOSE 157 mg/dL (70-104); GOT 45 U/L (10-30); GPT 48 U/L (10-36); POTASSIUM 4.4 mmol/L (3.5-5.1); SODIUM 143 mmol/L (136-145); TCO2 26 mmol/L (25-35); TOTAL BILIRUBIN 0.33 mg/dL (0.20-1.00); TOTAL PROTEIN 4.4 g/dL (6.3-8.3)
[2019-04-14] MEDS: HUMULIN R SUBQ SCH ×4 (06:42→20:34)
[2019-04-14] MEDS ORDERED: HEPARIN 25,000 UNITS/D5W 25,000 UNIT/250 ML IV.SOLN IV SCH ×3 (07:07→09:00)
--- NOTE | 2019-04-14 07:25 | Diag Imaging Result Doc PS360 ---
EXAM: CHEST-PORTABLE INDICATION: SOB TECHNIQUE: One view COMPARISON: 04/13/2019 FINDINGS: Support tubes and lines are in stable positions. There has been interval slight improvement of the perihilar infiltrates during the interval, likely representing improved edema and pulmonary venous congestion. No new consolidation is identified. Cardiac silhouette is stable. IMPRESSION: Interval slight improvement. Electronically signed by Alessio Hernandes 04/14/2019 7:23 AM
--- NOTE | 2019-04-14 07:30 | EKG Report ---
Test Performed on : 04/14/2019 06:53:16 AM Test Reason : afib Blood Pressure : / mmHG Vent. Rate : 084 BPM Atrial Rate : 079 BPM P-R Int : 000 ms QRS Dur : 166 ms QT Int : 436 ms P-R-T Axes : -29 -70 076 degrees QTc Int : 515 ms Ventricular-paced rhythm Abnormal ECG When compared with ECG of 13-APR-2019 12:57, (Unconfirmed) Electronic ventricular pacemaker has replaced Atrial fibrillation. Vent. rate has decreased BY 51 BPM Confirmed by Chris JEAN-BAPTISTE, Gio Ogden ([id number]) on 04/15/2019 10:53:38 AM
[2019-04-14] MEDS: PROTONIX IV SCH ×2 (08:27→20:34)
[2019-04-14] MEDS: LIPOSYN 20% 250 ML IV SCH (08:28)
[2019-04-14] MEDS: CLINIMIX E 4.25%-5% SOLUTION 1,000 ML IV SCH (08:28)
[2019-04-14] MEDS: SODIUM CHLORIDE 0.9% INJ SCH ×2 (08:28→20:34)
[2019-04-14] MEDS ORDERED: HEPARIN 25,000 UNIT in NS 250 ML IV SCH (08:30)
[2019-04-14] MEDS ORDERED: LANOXIN IV SCH (09:00)
--- NOTE | 2019-04-14 09:30 | PROGRESS NOTE ---
DATE: 04/14/2019 SUBJECTIVE: This patient is status post total gastrostomy, a feeding jejunostomy has been also placed. She has been placed back on the heparin drip. I will start this patient on Clinimix and lipids as well. Chemistry seems to be stable, a little bit elevated AST and ALT, but we will monitor on that. Her white blood cells increased from 10 to 22, but this is likely reactive. X- ray looks better today. Temperature has been fine. No signs of fever. So, for now we will just monitor. OBJECTIVE: Vital Signs: Temperature 97.3 degrees, pulse 92, respiratory rate 21, blood pressure 136/46, oxygen saturation 99 on a Venturi mask. HEENT: Head normocephalic, no trauma. PERRLA. Neck: Supple. No JVD. No masses. Central trachea. Chest: Decreased breath sounds at the bases with some crepitus. Abdomen: Soft. She has tenderness to palpation at the level of the periumbilical area, but basically generalized. She has a couple dressings and they look clean. She has a feeding tube without any source of infection or problem that I can see. Decreased bowel sounds. Extremities: No edema, no clubbing, no cyanosis. Neurological examination: The patient is alert. She is oriented. No focal deficits. She is sleepy. LABORATORY: WBC 22.5, hemoglobin 8.4, hematocrit 26.9, platelets 215. Sodium 143, potassium 4.4, chloride 109, bicarbonate 26. BUN 12, creatinine 0.6, glucose 157, calcium 7.4. AST 45, ALT 40, alkaline phosphatase 43, albumin 2.7. ASSESSMENT AND PLAN: 1. Newly diagnosed gastric adenocarcinoma, admitted for upper gastrointestinal bleed, status post total gastrectomy with feeding jejunostomy placement, postoperative day one. 2. We will restart this patient on the heparin drip. We will put this patient on Clinimix and lipids as well since she is not tolerating oral at this moment. We will continue monitoring this patient closely in the intensive care unit. It looks like she tolerated well the procedure. 3. Upper gastrointestinal bleed as above. 4. History of atrial fibrillation with mechanical valve replacement. Continue with the heparin drip. Cardiology Department on board. She has been placed on digoxin, and also she received a dose of amiodarone. Her heart rate is controlled. Blood pressure is stable. Cardiology Department following this patient. 5. Diabetes. Continue with same management. Seems to be stable. 6. Hypothyroidism. Continue with intravenous levothyroxine. 7. Mild congestive heart failure, aware. We will continue with gentle intravenous fluids. Cardiology on board. 8. Anemia, likely secondary to acute blood loss. We will monitor closely. We will continue monitoring the hemoglobin and hematocrit every 6 hours. 9. Chest x-ray looks better today. I believe the edema is going down, but she is on a Ventimask. We will monitor. 10. Leukocytosis. I believe this is reactive. She is not having fever and the leukocyte count before surgery was 10. We will monitor this patient on a daily basis. No fever, no chills, no cough, no phlegm. CRITICAL CARE TIME: 35 minutes. cc: Francisco Barrera MD
[2019-04-14] MEDS ORDERED: BLISTEX MEDICATED BERRY LIP BALM TOP PRN (10:14)
[2019-04-14] MEDS ORDERED: NS 250 ML IV ONE (10:38)
[2019-04-14 11:25] LABS: HEMATOCRIT 26.1 % (37.0-47.0)
--- NOTE | 2019-04-14 11:46 | GENERAL SURGERY PROGRESS NOTE ---
DATE: 04/14/2019 SUBJECTIVE: The patient reports feeling very sleepy, but denies severe pain, shortness of breath or nausea. OBJECTIVE: Vital Signs: She is afebrile. Her pulse has been 80s to 90s throughout the night, blood pressure 118-130 systolic overnight, O2 saturation 98% to 99%, respiratory rate 18 to 24. Urine output 30 mL/hour postoperatively. NG tube scant. General: She is somnolent, but easily arousable and answers questions appropriately. CV: Regular rate and rhythm. Respiratory: Bilateral breath sounds. No increased work of breathing. No rales, no wheeze. GI: Soft, nondistended, appropriately tender. Incisional dressings are clean and dry. Bowel sounds are quiet. LABORATORY: White blood cell count 22,000, hemoglobin 8.2, hematocrit 26.5, platelet count 215. Electrolytes reviewed and unremarkable. IMAGING: A chest x-ray last night showed successful central venous line placement and no pneumothorax. There is some question of edema or pneumonia in the left perihilar region with hazy bilateral infiltrates. ASSESSMENT AND PLAN: A 68-year-old female postoperative day 1 total gastrectomy with perioperative atrial fibrillation and chronic need for anticoagulation due to mechanical heart valve. She is hemodynamically stable. She is being maintained on an amiodarone drip currently. Cardiology is following the patient. I would plan to restart the heparin this morning. We will continue careful observation of her hemoglobin and hematocrit in the immediate postoperative period today. We are going to change her normal saline to Clinimix and lipids to provide her some nutrition and maintenance fluids. I am consulting physical therapy for assistance with physical activity and ambulation. I do hope to get her out of the bed into a chair today. Over the next few days, I hope to remove her nasogastric tube, Palmer catheter and arterial line. We will continue flushing the J-tube for now. No enteral feeds at this time. I do not think she needs antibiotics, but I feel like the infiltrates on chest x-ray are probably more edema than pneumonia, and her leukocytosis is just reactive from surgery yesterday. cc: Tobi Rockwell MD
--- NOTE | 2019-04-14 12:06 | HEMO/ONC PROGRESS NOTE ---
DATE: 04/14/2019 SUBJECTIVE: Patient lying in bed. The patient still has some mild melena. No medical complaints at this time. OBJECTIVE: Vital Signs: Temperature of 97.3 degrees, heart rate 83, respiratory rate 15, blood pressure is 137/57. General: Patient is awake, lying in bed, no acute distress noted. HEENT: Anicteric. Pupils PERRLA. Mucous membranes dry. Cardiovascular: S1, S2. Regular rate and rhythm. Chest: Bilateral breath sounds bilaterally. Abdomen: Soft, mildly tender, dressing intact. Neurologic: Alert and oriented x3. No focal deficits noted. LABORATORY DATA: White blood cell count is 22.5, hemoglobin 8.4, hematocrit 26.9, platelets are 215. Potassium 4.4, BUN 12, creatinine 0.6. ASSESSMENT AND PLAN: 1. Gastric cancer: The patient had surgery yesterday with Dr. Rockwell. Pathology results pending. We will continue to follow up on those results. At this time, continue to monitor. 2. Gastrointestinal bleed: Hemoglobin and hematocrit continue to be stable. Continue to monitor and transfuse as needed. 3. Anemia: Hemoglobin and hematocrit stable. Today, hemoglobin is 8.5 and hematocrit is 26.9. Continue to monitor and transfuse as needed. 4. Atrial fibrillation. Continue recommendations from Cardiology. Dictated by AUDREY Jarquin for Eddie Hall MD Patient seen and examined. As above. Thrombocytopenia stable, last day. INR is elevated likely due to liver failure. Treat with FFP and vitamin K as needed. Continue to monitor CBC and transfuse as previously advised. Eddie Hall M.D. cc: Eddie Hall MD [facility]
--- NOTE | 2019-04-14 13:33 | CARDIOLOGY PROGRESS NOTE ---
DATE: 04/14/2019 SUBJECTIVE: The patient is sleepy, sedated. Denies shortness of breath or chest pain. She is postoperative. PHYSICAL EXAMINATION: Vital Signs: Blood pressure was 153/54, mechanical prosthetic valve sounds noted. Respiratory: Distant breath sounds. Normal air entry. Abdomen: Post surgery. LABORATORY EXAMINATION: Revealed sodium 143 potassium 4.4, BUN 12, creatinine 0.6. Hematology: WBC 22.52, hemoglobin 8.2, hematocrit 26, platelet count of 215,000. The patient has received a blood transfusion. PROBLEM LIST: From a cardiac standpoint. The patient has: 1. Mechanical mitral valve, in addition has moderate aortic stenosis with moderate aortic insufficiency with preserved left ventricular systolic function. 2. Chronic atrial fibrillation. 3. Hypertension. 4. Hyperlipidemia. 5. Cerebrovascular accident. 6. Hypothyroidism. 7. Diabetes. ASSESSMENT: The patient admitted with gastrointestinal bleed. Biopsy revealed gastric cancer yesterday. Patient underwent patient underwent a total gastrectomy. RECOMMENDATIONS: 1. As far as atrial fibrillation is concerned, I have started her on IV amiodarone. We will leave her on IV amiodarone maintenance therapy as she is n.p.o. and she had atrial fibrillation with rapid ventricular rate with low blood pressure. Right now, her vital signs are stable. I would recommend continuing the IV amiodarone at maintenance dose. Once she is able to take her p.o. medications, we will restart her back on her home medications of Coreg and digoxin. I have stopped the digoxin given the fact that I put her on amiodarone. 2. She has a mechanical mitral valve. IV heparin started. Follow APTT given her mechanical valve. 3. If she has further is GI bleed or further drop in hemoglobin and hematocrit, she will be transfused as required. 4. Diabetes. Continue with medications as planned. 5. Blood pressure has gone. Up at the present time, I have not added any antihypertensive medications. We will see how she does and give IV hydralazine if required. Once she takes a p.o. medications, we will put her back on her home medications. cc: Deo Aguilar MD
[2019-04-14] MEDS ORDERED: DILAUDID IV ONE (13:35)
--- NOTE | 2019-04-14 14:35 | ECHO REPORT ---
ORDER DATE: 04/14/2019 INDICATION: Atrial fibrillation. Evaluate LV function. FINDINGS: This is a two-dimensional study only. Optison contrast was used. FINDINGS: 1. Linear artifact consistent with device leads is noted in the right heart chambers. 2. Normal RV size and systolic function. 3. Mechanical mitral prosthetic was noted with no Doppler evaluation of the valve. 4. Normal LV size with an end-diastolic dimension of 5.6 cm. Mild left ventricular hypertrophy with a posterior and interventricular septal wall thickness of 1.0 and 1.3 cm respectively. Borderline normal to normal LV systolic function with an estimated EF of 50 to 55 percent. No obvious segmental abnormalities were identified. 5. The aortic valve appears somewhat calcified. This is not well visualized. It appears to open reasonably well. 6. No pericardial effusion seen. cc: MD Deo Ruiz MD
--- NOTE | 2019-04-14 15:38 | GASTROENTEROLOGY PROGRESS NOTE ---
DATE: 04/14/2019 SUBJECTIVE: The patient is currently lying in bed. Her family is present at the bedside. The patient had a gastrectomy done yesterday by Dr. Rockwell. She also had G-tube placement for feeding. She has been afebrile for the last 24 hours. She was noted to have elevated white count this morning. She is being monitored by primary care team and surgery team. OBJECTIVE: Vitals: Temperature of 96.9, pulse rate of 85, respiratory rate of 17, blood pressure 141/48, saturating 100% on 50% FiO2 Venturi mask. Body weight of 140 pounds, BMI 22.6 kg. General: Ms. Vallejo is a moderately-built, well-nourished female lying in bed. No acute distress. HEENT: Pale conjunctivae. No icterus. Face mask in place. Neck: Supple. Abdomen: Surgical dressing noted. J-tube noted. Abdomen appropriately tender from recent surgery. Extremities: No cyanosis, clubbing. Neurologic: Neuro-rosa, she is awake, alert. LABS: Hemoglobin and hematocrit is 8.4 and 26.9, white count of 22.5, platelet count of 215. Sodium 143, potassium 4.4, chloride 109, bicarbonate 26/ anion gap of 8. BUN of 12, creatinine 0.6, glucose of 137, calcium is 7.4, total bilirubin is 0.33. AST 45, ALT 48, alkaline phosphatase 43, total protein is 4.4, albumin of 2.7. X-RAYS: Chest x-ray showed interval slight improvement of perihilar infiltrates during the interval. IMPRESSION AND PLAN: 1. Newly diagnosed gastric adenocarcinoma localized in the gastric polyp, which was removed on Thursday04/11/[address] Zeng at [facility], which is complicated with upper gastrointestinal bleeding. Status post esophagogastroduodenoscopy with hemostasis. Now she is status post partial gastrectomy and jejunostomy tube placement per Dr. Rockwell. This is postoperative day 1. Dr. Rockwell is following. 2. Anemia. Watch for now. Transfuse as needed. 3. Leukocytosis being monitored by primary team. 4. History of atrial fibrillation. Aware. Cardiology is on board. 5. History of mechanical valve replacement. She has been on heparin drip. 6. Hypothyroidism. She is on intravenous levothyroxine. 7. Diabetes. She is on sliding scale insulin. 8. Mild congestive heart failure. Aware. 9. Gastrointestinal prophylaxis with Protonix twice daily. 10. Nutrition: She is being started on fat emulsion and Clinimix per the primary care team. The above plans discussed with the patient and family at bedside. All questions answered. Please call us with any further questions. cc: MD Alessio Gallo MD Omar J. Sosa-Chirinos, MD Jason R. Seale, MD
[2019-04-14 17:00] LABS: HEMATOCRIT 23.6 % (37.0-47.0); HEMOGLOBIN 7.1 g/dL (12.0-16.0)
[2019-04-14] MEDS: CORDARONE 360 MG/D5W 360 MG/200 ML IV.SOLN IV SCH (18:06)
[2019-04-14] MEDS ORDERED: PROTONIX IV SCH (19:54)
[2019-04-14] MEDS ORDERED: CORDARONE 540 MG in D5W 289.2 ML IV SCH (20:00)
[2019-04-15 00:36] LABS: HEMATOCRIT 23.5 % (37.0-47.0); HEMOGLOBIN 7.1 g/dL (12.0-16.0)
[2019-04-15] MEDS: DILAUDID IV PRN ×9 (01:06→22:54)
[2019-04-15] MEDS: CLINIMIX E 4.25%-5% SOLUTION 1,000 ML IV SCH ×2 (03:18→22:54)
--- NOTE | 2019-04-15 04:20 | OPERATIVE NOTE ---
PROCEDURE DATE: 04/13/2019 PREOPERATIVE DIAGNOSES: 1. Gastric adenocarcinoma. 2. Upper gastrointestinal bleed. POSTOPERATIVE DIAGNOSES: 1. Gastric adenocarcinoma. 2. Upper gastrointestinal bleed. PROCEDURES: 1. Diagnostic laparoscopy with biopsy of the liver x2. 2. Open subtotal gastrectomy with Elizabeth-en-Y gastrojejunostomy. 3. Insertion of feeding Witzel-type jejunostomy. SURGEONS: Dr. Tobi Rockwell. ASSISTANTS: 1. Dr. Prabhjot Purvis. 2. Dr. Abel Denis. ESTIMATED BLOOD LOSS: 100 mL. COMPLICATIONS: None apparent. SPECIMENS: 1. Portions of 2 lesions of the left lobe of the liver. 2. The stomach and a D1 lymphadenectomy, including nodes from the right cardiac lesser curve, greater curve, suprapyloric, antropyloric, and left gastric artery regions. FINDINGS: The patient had 2 small but nodular looking lesions along the edge of the left lobe of the liver. However, frozen section examination was negative for malignancy. There were no other findings of peritoneal studding, carcinomatosis, omental lesions, or pathologically enlarged lymph nodes. The lesion in the stomach was identified on the back table after resection and found to be in the upper half of the body of the stomach near the greater curve, and was at least 7 cm from the proximal margin. TECHNIQUE: She was brought to the operating room and placed supine on the table. General anesthesia was induced. A Palmer catheter was placed. An arterial line and central venous catheter were placed by the anesthesiologist as well as a TAP block. She was then prepped and draped in the usual sterile fashion after all bony prominences were appropriately padded. I began with an 11 mm incision above the umbilicus, and entered the peritoneal cavity under direct vision with the Optiview device. Pneumoperitoneum was established. The camera was inserted. There was no evidence of injury to underlying structures. Two 5 mm incisions and ports were placed in the left and right mid abdomens under direct vision. Dr. Fraser was present and helpful for the initial portions of the case, which included surveying the abdomen laparoscopically and identifying the lesions in the left lobe of the liver for biopsy. He later dropped out prior to my opening the abdomen for the resection so that he could perform another operation, and Dr. Denis assisted me during the majority of the dissection and resection. Then Dr. Purvis rejoined me and Dr. Denis dropped out, and Dr. Purvis assisted with the anastomoses. He was helpful for retraction and exposure. Dr. Denis was very helpful during his portions of the case for retraction and exposure of all the significant dissection of the stomach. The laparoscopy portion was performed and I examined the peritoneal surfaces and all of the abdomen with the findings noted in the liver. A biopsy forceps was brought in and I was able to take good pieces of each and send them down for frozen section. There was minor bleeding from the liver bed, which was controlled with cautery. One frozen section came back negative for malignancy. We then proceeded to open the abdomen and pursue a resection for curative intent. An incision was made from the subxiphoid area down to the umbilicus with a knife and carried down through the subcutaneous tissue with cautery. The fascia was opened with cautery. The peritoneum was then opened carefully with cautery, avoiding injury to underlying structures. An upper hand retractor was then placed to better expose the upper abdomen. Dr. Denis then joined me and was very helpful for helping mobilize the colon, and for the dissection and initial resection. We began by lifting up the omentum from the transverse colon and we divided the omentum just superior to the transverse colon and entered the lesser sac. I then continued resecting the omentum off of the transverse colon until it was completely freed from the colon. I was able to lyse adhesions of the posterior stomach to the retroperitoneum of the pancreas with cautery. I then followed the lesser curve and divided the lesser curve with the LigaSure device, this included the short gastric vessels. I then followed the greater curvature and divided the left gastroepiploic artery and short gastric vessels with the LigaSure device all the way up to the left raymond of the diaphragm. The lesion was palpated along the upper half of the stomach near the greater curve. However, it was not in the cardia and not at the esophagogastric junction, and I felt like a subtotal gastrectomy could be performed leaving a cuff of stomach to sew the anastomosis to proximally. We then continued dissecting the transverse colon away from the distal stomach and pylorus carefully with cautery and the LigaSure device, protecting the transverse colon mesentery. We divided the right gastroepiploic vessel with the LigaSure. I then entered the lesser sac with cautery and divided it all the way up to the right raymond, and then divided it further down to the lianet hepaticus. The right gastric artery was carefully identified and ligated proximally with the LigaSure device. We then Kocherized the duodenum, at least partially, rolling it medially and dividing the lateral peritoneal attachments with cautery. When this was accomplished, we were able to easily dissect behind the duodenum bluntly and we then divided the duodenum just distal to the pylorus with a blue linear stapler. I oversewed this staple line with interrupted seromuscular 3-0 silk sutures. Lifting the stomach up now anteriorly, we were able to fully expose the back wall and I was able to identify the left gastric artery. It had at least 1 or 2 lymph nodes visible, although it did not appear to be significantly enlarged. I was able to clamp proximal to the lymph node and divide it distally with the LigaSure. The stump of the left gastric artery was then stick-tied with a 2-0 silk. There was no bleeding from the stump when the clamp was removed. Now that we had the stomach completely freed up, we went ahead and transected it with a TA stapler. The specimen was passed off the field. Dr. Denis examined it on the back table and confirmed good margins. Dr. Denis then scrubbed out and Dr. Purvis scrubbed back in for the remaining portions of the case. I identified the ligament of Treitz and went distal to it about 30 cm, where I divided the jejunum with a linear RAYNA stapler. The Elizabeth limb was then brought up through a small defect created in the transverse colon mesentery just to the left of the middle colic artery, and it was brought up and laid beside our staple line on the stomach. I then placed a row of posterior 3-0 silk seromuscular interrupted sutures. The staple line was removed off of the stomach with cautery. An enterotomy was made in the jejunum and an end-to-side anastomosis was then fashioned in 2 layers. A posterior running locking suture with 3-0 with double-armed Vicryl was begun and this was converted to a Kennel-type stitch anteriorly. I then over sewed the anterior suture line with another row of interrupted seromuscular 3-0 silk sutures. The color of the stomach mucosa and jejunum looked healthy. I felt like this anastomosis was air and water tight. I then closed the defect of the mesentery by approximating the edges of the mesenteric defect in the transverse colon to the Elizabeth limb with several interrupted 3-0 silk sutures, approximating the serosa to the mesentery. I then found my proximal jejunal stump and brought it in to the Elizabeth limb and performed an end-to- side anastomosis. I 1st created a posterior row of 3-0 silk seromuscular sutures. I removed the staple line with cautery and made an enterotomy in the Elizabeth limb, and then created this 2-layer anastomosis in the same fashion as described above. This anastomosis was also felt to be water and airtight, and was felt to be patent. Next, we went distal to this anastomosis approximately 10 to 20 cm and brought in a 12-Greenlandic red Champagne catheter through a lateral incision in the abdomen. An enterotomy was made in the jejunum and the catheter was passed into the small bowel for at least 10 cm. A 3-0 silk pursestring suture was placed around the enterotomy site and tied snugly around the catheter. I then reapproximated the serosa around the catheter with several interrupted 3-0 silk sutures in a Witzel-type fashion. The small bowel containing the jejunostomy was then approximated up to the abdominal wall with several interrupted 3-0 silk sutures. The feeding tube was sewn to the skin with 2-0 nylon. We examined the abdomen for bleeding. There was some minor oozing on the spleen, which we placed some hemostatic Snow and this stopped the bleeding. I then made sure that all our laparotomy and instrument counts were correct. I closed the peritoneum and fascia with a running #1 looped Maxon suture in 2 directions, and the skin with skin clips. The two 5 mm incisions were closed with subcuticular 4-0 Biosyn and Steri-Strips. I should also point out that I failed to mention that prior to the gastrojejunostomy, the county demonstrator did pass an NG tube and I directed it through the anastomosis into the Elizabeth limb. She tolerated the procedure without apparent complication and was awakened in fair condition and transferred back to the ICU indication. cc: Tobi Rockwell MD
[2019-04-15] MEDS: CORDARONE 360 MG/D5W 360 MG/200 ML IV.SOLN IV SCH ×2 (05:45→17:32)
[2019-04-15] MEDS: SYNTHROID IV SCH (06:08)
[2019-04-15] MEDS: SODIUM CHLORIDE 0.9% INJ PRN (06:09)
[2019-04-15 06:19] LABS: BASO# 0.01 X1000 (0.0-0.2); BASO% 0.1 % (0.0-0.8); EOS# 0.08 X1000 (0.0-0.7); EOS% 0.6 % (0.0-10.0); HEMATOCRIT 21.4 % (37.0-47.0); HEMOGLOBIN 6.6 g/dL (12.0-16.0); LYMPH# 0.72 X1000 (1.2-3.4); LYMPH% 5.8 % (20.5-51.1); MCH 29.5 PG (27-31); MCHC 30.8 g/dL (33-37); MCV 95.5 FL (81-99); MONO# 1.13 X1000 (0.11-0.59); MONO% 9.1 % (1.7-9.3); MPV 11.1 FL (7.4-10.4); NEUT# 10.52 X1000 (1.4-6.5); NEUT% 84.4 % (42.2-75.2); PLT 211 X1000 (130-400); RBC 2.24 XMIL (4.2-5.4); RDW 16.3 % (11.5-14.5); WBC 12.46 X1000 (4.8-10.8)
[2019-04-15 06:28] LABS: AGAP 6; BUN 16 mg/dL (8-22); CALCIUM 7.5 mg/dL (8.8-10.2); CHLORIDE 104 mmol/L (98-107); COSMO 280; CREATININE 0.6 mg/dL (0.5-0.9); ESTIMATED GFR > 60; GLUCOSE 160 mg/dL (70-104); POTASSIUM 3.9 mmol/L (3.5-5.1); SODIUM 138 mmol/L (136-145); TCO2 28 mmol/L (25-35)
[2019-04-15] MEDS ORDERED: HEPARIN 25,000 UNIT in NS 250 ML IV SCH ×2 (06:54→15:11)
[2019-04-15] MEDS: HUMULIN R SUBQ SCH ×4 (06:57→20:50)
--- NOTE | 2019-04-15 07:20 | Diag Imaging Result Doc PS360 ---
EXAM: CHEST-PORTABLE INDICATION: dyspnea TECHNIQUE: One view COMPARISON: 04/14/2019 FINDINGS: Support tubes and lines are in stable positions. Perihilar infiltrates are approximately stable. There are bilateral pleural effusions at the lung bases that are approximately stable. No new consolidation is identified. Cardiac silhouette is stable. IMPRESSION: Stable chest. Electronically signed by Alessio Hernandes 04/15/2019 7:17 AM
[2019-04-15] MEDS ORDERED: LASIX IV ONE ×2 (07:57→16:28)
[2019-04-15] MEDS: SODIUM CHLORIDE 0.9% INJ SCH ×2 (08:20→20:21)
[2019-04-15] MEDS: PROTONIX IV SCH ×2 (08:20→20:19)
[2019-04-15] MEDS: LIPOSYN 20% 250 ML IV SCH (08:20)
--- NOTE | 2019-04-15 09:41 | PROGRESS NOTE ---
DATE: 04/15/2019 SUBJECTIVE: The patient is status post total gastrectomy and feeding jejunostomy tube placement postoperative day #2. Electrolytes are stable. White blood cell decreased from 22 to 12, hemoglobin dropped from 7.1 to 6.6. Two units of PRBC's has been requested. Since she has some pulmonary edema on the x-rays, I will go ahead and give her a dose of Lasix after the first blood transfusion, and I will monitor. She has a positive balance of 2.6 L as well. OBJECTIVE: Vital Signs: Temperature 97.8 degrees, pulse 88, respiratory rate 18, blood pressure 133/47, and oxygen saturation 98 percent on a Venturi mask. HEENT: Head normocephalic. No trauma. PERRLA. Neck: Supple. No JVD. No masses. Central trachea. Chest: Decreased breath sounds at the bases with some crepitus and rales. Abdomen: Soft. Generalized tenderness to palpation mostly at the level of the perioperative area and periumbilical area. She has a couple of dressings and they look clean. She has a feeding tube without any signs of infection. Decreased bowel sounds. Extremities: No edema. No clubbing. No cyanosis. Neurological: The patient is alert. She is oriented. No focal deficits. She has generalized weakness and complaining of some right shoulder pain. LABORATORY: WBC 12.4, hemoglobin 6.6, hematocrit 21.4, and platelets 211,000. Sodium 138, potassium 3.9, chloride 104, bicarbonate 28, BUN 16, creatinine 0.6 glucose 160, and calcium 7.5. ASSESSMENT AND PLAN: 1. Newly diagnosed gastric adenocarcinoma initially admitted due to upper GI bleed, status post total gastrectomy with feeding jejunostomy tube placement, postoperative day #2. 2. Her bowel sounds are decreased. As per the patient, she is not passing gas, but her abdomen is soft and nondistended. We will continue to monitor. Surgery Department on board. 3. History of atrial fibrillation with mechanical valve replacement. Continue with the same management. Continue with heparin drip. Cardiology Department on board. We will continue following their recommendations. Heart rate was stable. 4. Diabetes. Continue with same management. Stable. 5. Hypothyroidism. Continue with IV levothyroxine. 6. Mild CHF, aware. I will continue with gentle IV fluids. She has been getting Clinimix and lipids. Also, today she will receive 2 units of PRBC's. Since she has signs of pulmonary edema corroborated on the x-ray, I will give her a dose of Lasix after the first transfusion to see how she does. Also, she has been on a Ventimask. 7. Anemia, likely secondary to acute blood loss. Today, she will receive 2 units of PRBC's. We will monitor. 8. Leukocytosis, likely reactive. This patient is not complaining of fever or chills, and actually I do not have any reported high temperature. 9. Pulmonary edema on the x-ray and physical exam. We will continue with just gentle IV fluids since she is not getting anything p.o. or through the jejunostomy tube. She will receive a dose of Lasix after the first PRBC and I will monitor. BUN and creatinine stable. Urine output looks better today compared with yesterday. cc: Francisco Barrera MD
[2019-04-15] MEDS: ZOFRAN IV PRN (10:33)
[2019-04-15] MEDS ORDERED: NS 250 ML IV PRN (11:19)
[2019-04-15] MEDS ORDERED: REGLAN IV SCH (13:00)
--- NOTE | 2019-04-15 15:40 | GENERAL SURGERY PROGRESS NOTE ---
DATE: 04/15/2019 SUBJECTIVE: She feels tired, but no nausea or vomiting. Her abdomen is sore. No chest pain or shortness of breath. OBJECTIVE: Vital Signs: She is afebrile. Pulse is in the 80s to 90s, blood pressure 115-130 systolic by the cuff and 130s to 170s by the arterial line. Urine output 620 mL yesterday and recorded as 30-40 mL/hour. NG tube only 20 mL out. General: She is with weakened in appearance but awake and conversant and oriented x3. No acute distress. CV: Regular rate and rhythm. Respiratory: Bilateral breath sounds. No increased work of breathing. Gastrointestinal: Soft, nondistended, mildly tender incision is clean, dry, and intact. Hypoactive bowel sounds. LABORATORY: White blood cell count 12, hemoglobin 6.6, hematocrit 21.4, platelet count 211,000 electrolytes reviewed unremarkable. IMAGING: A chest x-ray this morning shows perihilar infiltrates that are stable. Bilateral pleural effusions at the lung bases are approximately stable. No new consolidation is appreciated. ASSESSMENT AND PLAN: A 68-year-old female postoperative day 2, subtotal gastrectomy for adenocarcinoma of the stomach. She has acute blood loss anemia, likely related to postsurgical bleeding. I do not think this is severe enough to require reoperation, but I will order 2 units of packed red blood cells today to be transfused. We will continue to follow. She is hemodynamically stable. We will monitor her urine output. It is low but adequate at this time. I do not feel like we need to increase her fluids at this time. I do want to increase her activity. Physical therapy has been consulted. I have spoken with the nursing staff. I do want her to try to get out of bed some today. If she appears to be stable over the weekend, I want to start some J-tube trophic feeds and remove the NG tube and allow her to start sipping on clear liquids and taking oral medicine as tolerated. cc: Tobi Rockwell MD
[2019-04-15] MEDS ORDERED: REGLAN IV PRN (18:05)
--- NOTE | 2019-04-15 19:14 | PROGRESS NOTE ---
DATE: 04/15/2019 SUBJECTIVE: The patient is now postoperative day 2 following laparotomy and gastrectomy with feeding jejunostomy on 04/13. She continues on intravenous heparin. She has demonstrated atrial fibrillation and is on intravenous amiodarone. She denies any chest discomfort or dyspnea. Her hematocrit dropped to 21 and she is currently receiving her second unit of packed red cells. She has not been able to tolerate initiation of small amounts of clear liquids. OBJECTIVE: Blood pressure 109/27, heart rate 88 and irregular, with ECG monitor showing atrial fibrillation. Jugular venous distention is present, suggesting elevated central venous pressure. Chest is fairly clear to auscultation. Cardiac exam reveals an irregular rate and rhythm, with mechanical first heart sound. There is a grade 1/6 to 2/6 systolic murmur at the left sternal border. Gallop could not be appreciated. There is no evidence of peripheral edema. LABORATORY DATA: Includes a white blood cell count of 12.46, hematocrit 21.4, hemoglobin 6.6, platelet count 211,000. PTT 59.7. Laboratory data includes a sodium of 138, potassium 3.9, chloride 104, carbon dioxide 28, BUN 16, creatinine 0.6, glucose 160. Albumin 2.7. IMPRESSION: 1. Valvular heart disease with moderate aortic stenosis, mild aortic regurgitation, and previous mechanical mitral valve replacement in 2011. 2. Status post gastrectomy for gastric carcinoma. 3. Postoperative atrial fibrillation. She has history of previous atrial fibrillation in the past. 4. Hypertension. 5. Cardiomyopathy. RECOMMENDATIONS: 1. Continue intravenous heparin as tolerated. 2. Agree with transfusion of packed red cells. 3. Continue amiodarone intravenously for rate control as well as potential for converting back to sinus rhythm. 4. Diurese following second unit of packed red cells. cc: Phoenix Holt MD
--- NOTE | 2019-04-15 19:20 | HEMO/ONC PROGRESS NOTE ---
DATE: 04/15/2019 SUBJECTIVE: The patient is lying in bed. NG tube in place. She states she is very tired and wants to take a nap. She states she hurts all over. OBJECTIVE: Vital signs are 98 degrees, heart rate is 84, respiratory rate 18, blood pressure 120/37. Arterial line blood pressure 141/47. She is 100% on a venturi mask. Pain level is 8/10. On physical exam, the patient appears comfortable in bed.Respiratory: Decreased breath sounds. Abdomen: Deferred due to positioning and pain at the time. Dressings appear clean. Extremities: No edema. No cyanosis. Neurological: The patient is alert and oriented x3. No focal deficits. LABORATORY DATA: White blood count is 12.46, hemoglobin is 6.6, hematocrit 21.4, platelets are 211,000. ASSESSMENT AND PLAN: 1. Gastric adenocarcinoma. The patient is status post total gastrectomy with feeding jejunostomy tube placement, postoperative day 2. Pathology results are pending and we will continue to follow up on those results. At this time we will continue to monitor. 2. Gastrointestinal bleeding. Her hemoglobin and hematocrit are very low today. The patient received 2 units packed red blood cells today. We will continue to monitor. 3. Atrial fibrillation. Continue recommendations per Cardiology. 4. Leukocytosis. This is likely reactive. The patient has not had fever or chills. We will continue to monitor. Dictated by AUDREY Luu for Eddie Hall MD Patient seen and examined. As above. Gastric adenocarcinoma status post resection. Pathology is pending. I have discussed with patient and her family that after recovery we will schedule her for a PET scan. For her anemia, transfuse as you are doing. She will likely require IV iron and we will give her one dose once she recovers, maybe next week. Continue current management per surgery. Eddie Hall M.D. cc: Eddie Hall MD [facility]IC[facility]
[2019-04-16] MEDS: CORDARONE 360 MG/D5W 360 MG/200 ML IV.SOLN IV SCH ×3 (04:49→15:59)
[2019-04-16 05:03] LABS: ALLEN TEST YES; BE 10.7 mmoll (-3.0-3.0); BLOOD TYPE ARTERIAL; HCO3-(ACT) 33.3 mmoll (20.0-26.0); METHB 0.2 % (0.0-1.5); O2(CT) 13.1 mL/dL (15.0-23.0); O2HB 96.4 % (95.0-99.0); PCO2(98.6) 49 mmHg (35-45); PO2(98.6) 88 mmHg (60-100); SAMPLE BLOOD; SAO2 98.3 % (95.0-100.0); THB 9.6 g/dL (11.5-17.4); pH(98.6) 7.47 (7.35-7.45)
[2019-04-16 05:04] LABS: MODALITY CANNULA
[2019-04-16 05:12] LABS: HEMATOCRIT 30.6 % (37.0-47.0); HEMOGLOBIN 9.9 g/dL (12.0-16.0); MCH 28.4 PG (27-31); MCHC 32.4 g/dL (33-37); MCV 87.7 FL (81-99); RBC 3.49 XMIL (4.2-5.4); RDW 16.5 % (11.5-14.5); WBC 10.11 X1000 (4.8-10.8)
[2019-04-16 05:13] LABS: BASO# 0.02 X1000 (0.0-0.2); BASO% 0.2 % (0.0-0.8); EOS# 0.11 X1000 (0.0-0.7); EOS% 1.1 % (0.0-10.0); IMM GRAN# 0.07 X1000 (0.0-0.04); IMM GRAN% 0.7 % (0.0-0.5); LYMPH# 0.66 X1000 (1.2-3.4); LYMPH% 6.5 % (20.5-51.1); MONO# 0.81 X1000 (0.11-0.59); MPV 10.5 FL (7.4-10.4); NEUT# 8.44 X1000 (1.4-6.5); NEUT% 83.5 % (42.2-75.2); PLT 219 X1000 (130-400)
[2019-04-16 05:30] LABS: AGAP 9; ALB/GLOB RATIO 0.9; ALBUMIN 2.4 g/dL (3.5-5.0); ALKALINE PHOSPHATASE 51 U/L (32-104); BUN 12 mg/dL (8-22); CALCIUM 7.6 mg/dL (8.8-10.2); CHLORIDE 99 mmol/L (98-107); COSMO 280; CREATININE 0.6 mg/dL (0.5-0.9); ESTIMATED GFR > 60; GLUCOSE 146 mg/dL (70-104); GOT 16 U/L (10-30); GPT 24 U/L (10-36); MAGNESIUM 1.7 mg/dL (1.5-2.7); POTASSIUM 4.1 mmol/L (3.5-5.1); SODIUM 139 mmol/L (136-145); TCO2 31 mmol/L (25-35); TOTAL BILIRUBIN 0.35 mg/dL (0.20-1.00)
[2019-04-16] MEDS: SYNTHROID IV SCH (06:18)
[2019-04-16] MEDS: LIPOSYN 20% 250 ML IV SCH (06:18)
[2019-04-16] MEDS: HUMULIN R SUBQ SCH ×4 (06:18→20:15)
--- NOTE | 2019-04-16 07:12 | Diag Imaging Result Doc PS360 ---
EXAM: CHEST-PORTABLE 04/16/2019 HISTORY: dyspnea TECHNIQUE: AP portable at 0529 COMMENT: There are bilateral pleural effusions. There is cardiomegaly. There is interstitial pulmonary edema and atelectasis versus pneumonia in the lung bases. Compared to 04/15/2019 this has not changed appreciably. The NG tube has been removed. Compared to 04/14/2019 the inspiration is slightly less optimal but otherwise are has been no significant change. IMPRESSION: Pleural effusions and pulmonary edema. Electronically signed by Saurabh Jay 04/16/2019 7:09 AM
[2019-04-16] MEDS ORDERED: LASIX IV ONE (08:20)
[2019-04-16] MEDS: PROTONIX IV SCH ×2 (08:43→20:15)
[2019-04-16] MEDS: OFIRMEV 1000 MG/ISOTONIC SOLN 1,000 MG/100 ML BOTTLE IV PRN ×2 (08:43→21:34)
[2019-04-16] MEDS: SODIUM CHLORIDE 0.9% INJ SCH ×2 (08:44→20:16)
[2019-04-16] MEDS: HEPARIN 25,000 UNIT in NS 250 ML IV SCH (09:36)
[2019-04-16] MEDS: DILAUDID IV PRN ×2 (13:13→17:15)
--- NOTE | 2019-04-16 16:23 | PROVIDER PROGRESS NOTE ---
Progress Note SUBJECTIVE: Patient noted to be hallucinating overnight after receiving pain medications stating that the "pumps were talking to her and saying the same thing over and over". She cannot make out what their saying. She acknowledges that the pain medications are making her "loopy". OBJECTIVE: Last Vital Signs Temp 97.7 F 04/16/19 12:00 Pulse 83 04/16/19 15:01 Resp 23 04/16/19 15:01 BP 146/50 04/16/19 15:01 Pulse Ox 99 04/16/19 15:01 Height 5 ft 6 in Weight 145 lb 6 oz GEN: awake, drowsy, NAD HEENT: anicteric, MMM, EOMI NECK: supple, no jvd CV: mitral valve click, no murmurs, RRR PULM: normal WOB, no wheezing ABD: midline incision with dressing c/d/i, j-tube in place EXT: no cce NEURO: mild confusion, moving all extremities LABS: 04/16/19 04/16/19 05:00 05:00 WBC 10.11 Hgb 9.9 L D Plt Count 219 Sodium 139 Potassium 4.1 Chloride 99 Carbon Dioxide 31 BUN 12 Creatinine 0.6 Glucose 146 H Calcium 7.6 L Magnesium 1.7 Total Bilirubin 0.35 AST 16 ALT 24 Alkaline Phosphatase 51 Total Protein 5.0 L Albumin 2.4 L GEN: awake, alert, NAD HEENT: anicteric, MMM, EOMI NECK: supple, no JVD PULM: CTAB, no wheezing CV: irregularly irregular, MV click ABD: soft NT/ND, NABS EXT: no cce NEURO: nonfocal LABS: 04/13/19 04/13/19 04/13/19 01:25 04:20 04:20 WBC 10.30 Hgb 8.1 L D Plt Count 176 Sodium 145 Potassium 3.8 Chloride 112 H Carbon Dioxide 25 BUN 11 Creatinine 0.7 Glucose 134 H ASSESSMENT AND PLAN: Ms Valerie Vallejo is a 68-year-old woman with a history of mechanical mitral valve on Coumadin, afib, hypertension, noninsulin-dependent diabetes, who presents with acute blood loss anemia after EGD with polypectomy revealing gastric adenocarcinoma s/p subtotal gastrectomy and j-tube placement. She was transfused 2 units pRBC yesterday. Overnight, she has had some hallucinations vs. delirium likely to medications. No recurrent bleeding. #GIB: resolved: trending H/H, transfuse as needed to maintain hgb 7-8; continue IV PPI BID #Hallucinations: minimize pain meds; correct lytes #Gastric adenocarcinoma: 2/2 subtotal gastrectomy and surgical j-tube: oncology and surgery following; on clinimix and lipids #Mechanical valve: on heparin drip #Afib: on amiodarone drip Will follow with you. Please call with questions
--- NOTE | 2019-04-16 18:25 | PROGRESS NOTE ---
DATE: 04/16/2019 SUBJECTIVE: The patient is status post total gastrectomy and feeding tube jejunostomy placement, postoperative day #3. Electrolytes are stable. Hemoglobin improved after a couple units of PRBCs. Glucose stable. X-ray showed pleural effusion. I will add a dose of Lasix today in the morning, and I will monitor. OBJECTIVE: Vital signs: Temperature 97.9 degrees, pulse 83, respiratory rate 18, blood pressure 147/52, oxygen saturation 99% on 4 L of nasal cannula. HEENT: Head normocephalic, no trauma. PERRLA. Neck supple. No JVD. No masses. Central trachea. Chest: Decreased breath sounds at the bases, with some crepitus and rales. Abdomen is soft. Generalized tenderness to palpation, mostly at the level of the perioperative area and periumbilical area. She has a couple dressings and they look clean. She has a feeding tube without any signs of infection. Decreased bowel sounds. Extremities: No clubbing, no cyanosis. Neurologic: The patient is alert and oriented x3. No focal deficits, but as per the she had some confusion during the night. LABORATORY DATA: WBC 10.1, hemoglobin 9.9, hematocrit 30.6, platelets 219,000. Sodium 139, potassium 4.1, chloride 99, bicarbonate 31, BUN 12, creatinine 0.6, glucose 146, calcium 7.6, magnesium 1.7, albumin 2.4. ASSESSMENT AND PLAN: 1. Newly diagnosed gastric adenocarcinoma, initially admitted due to upper gastrointestinal bleed, status post total gastrectomy with feeding to jejunostomy placement, postoperative day #3. She seems to be doing better. Surgery Department on board. We will monitor. 2. History of atrial fibrillation with mechanical valve replacement. Continue with same management. She seems to be doing good. Continue with heparin drip. Cardiology Department on board. 3. Diabetes. Continue with same management. Stable. 4. Hypothyroidism. Continue with intravenous levothyroxine. 5. Mild congestive heart failure. Aware. We will continue with gentle diuresis, since she is not on a diet. She is on Clinimix and also lipids. X-ray showed pulmonary edema. I will give her Lasix x1 today and I will monitor. 6. Anemia, likely secondary to acute blood loss, status post 2 packed red blood cells. Hemoglobin improved from 6.6 to 9.9. 7. Leukocytosis, likely reactive, resolved. 8. Pulmonary edema on the x-ray and physical exam. She will receive a dose of Lasix today. We have a negative balance of 1.2 L in 24 hours. cc: Francisco Barrera MD
[2019-04-16] MEDS: CLINIMIX E 4.25%-5% SOLUTION 1,000 ML IV SCH (20:15)
[2019-04-17] MEDS: CORDARONE 360 MG/D5W 360 MG/200 ML IV.SOLN IV SCH ×2 (03:41→15:00)
[2019-04-17 05:34] LABS: BASO# 0.01 X1000 (0.0-0.2); BASO% 0.1 % (0.0-0.8); EOS# 0.18 X1000 (0.0-0.7); EOS% 2.5 % (0.0-10.0); HEMATOCRIT 30.5 % (37.0-47.0); HEMOGLOBIN 9.6 g/dL (12.0-16.0); IMM GRAN# 0.06 X1000 (0.0-0.04); IMM GRAN% 0.8 % (0.0-0.5); LYMPH# 0.49 X1000 (1.2-3.4); LYMPH% 6.8 % (20.5-51.1); MCH 27.9 PG (27-31); MCHC 31.5 g/dL (33-37); MCV 88.7 FL (81-99); MONO# 0.59 X1000 (0.11-0.59); MONO% 8.2 % (1.7-9.3); MPV 10.6 FL (7.4-10.4); NEUT# 5.83 X1000 (1.4-6.5); NEUT% 81.6 % (42.2-75.2); PLT 259 X1000 (130-400); RBC 3.44 XMIL (4.2-5.4); RDW 16.1 % (11.5-14.5); WBC 7.16 X1000 (4.8-10.8)
[2019-04-17 06:03] LABS: AGAP 9; ALBUMIN 2.4 g/dL (3.5-5.0); ALKALINE PHOSPHATASE 61 U/L (32-104); BUN 11 mg/dL (8-22); CALCIUM 8.3 mg/dL (8.8-10.2); CHLORIDE 99 mmol/L (98-107); COSMO 287; CREATININE 0.5 mg/dL (0.5-0.9); ESTIMATED GFR > 60; GLUCOSE 143 mg/dL (70-104); GOT 13 U/L (10-30); GPT 17 U/L (10-36); POTASSIUM 3.4 mmol/L (3.5-5.1); SODIUM 143 mmol/L (136-145); TCO2 35 mmol/L (25-35); TOTAL BILIRUBIN 0.44 mg/dL (0.20-1.00); TOTAL PROTEIN 4.9 g/dL (6.3-8.3)
--- NOTE | 2019-04-17 06:04 | GENERAL SURGERY PROGRESS NOTE ---
DATE: 04/16/2019 SUBJECTIVE: Doing okay. She had some confusion overnight, but she is alert this morning. OBJECTIVE: No fevers. No tachycardia. Abdomen is soft, appropriately tender. J-tube is in place. She is alert. Her is at bedside. No return of bowel function . LABORATORY DATA: White count 10, hematocrit 30. ABG is reviewed. Creatinine 0.6. ASSESSMENT AND PLAN: A 68-year-old female status post subtotal gastrectomy. I have reviewed her x-rays and her labs. She does have some pulmonary edema and effusions. Keep her in the intensive care unit for now. She is on heparin drip for mechanical valve. The hospitalists are following. If she has return of bowel function we will start some trophic feeds tomorrow. cc: Rubi Denis MD MTDD
--- NOTE | 2019-04-17 06:19 | HEMO/ONC PROGRESS NOTE ---
DATE: 04/16/2019 SUBJECTIVE: The patient is lying in bed, currently getting cleaned up for the day. She states that she does feel much better than yesterday, but she still does have pain in her abdomen. She does have pain with palpation to the abdomen. She states she is tired. She was a little bit agitated last night. She believes she had a reaction to the pain medication. She plans to nap most of the day. OBJECTIVE: Vital signs: Temperature is 97.9 degrees, pulse rate is 83, respiratory rate is 18, blood pressure is 147/52. She is 99% on 4 L via nasal cannula. General: The patient appears comfortable in bed. Respiratory: Lungs are clear to auscultation. Equal chest rise and fall. Cardiac: Irregular rate and rhythm with a mechanical heart sound noted. Extremities: No peripheral edema. Abdomen: Bowel sounds are present. Noted 2 dressings, one midline, one slightly to the right. Both clean and dry. Soft, nondistended. Hypoactive bowel sounds. LABORATORY DATA: White blood cells are 10.11, hemoglobin is 9.9, hematocrit is 30.6, platelet count is 219,000. Calcium is 7.6, creatinine 0.6. ASSESSMENT AND PLAN: 1. Gastric adenocarcinoma. The patient is status post total gastrectomy with feeding tube, jejunostomy tube placement, postoperative day 3. Continue to await pathology results. We will follow up on those and see the patient in the office after hospitalization. 2. Valvular heart disease with moderate aortic stenosis, mild aortic regurgitation, with previous mechanical mitral valve replacement in 2011. On anticoagulation. 3. Postoperative atrial fibrillation. She is on anticoagulation per Cardiology. 4. Anemia with gastrointestinal bleeding. The patient is post transfusion of 2 packed red blood cell transfusions yesterday. Her hemoglobin and hematocrit have improved to 9.9 and 30.6. We will continue to monitor and agree with transfusions as needed. 5. Leukocytosis: This is likely reactive. The patient has not had fever or chills. We will continue to monitor. Dictated by AUDREY Luu for Eddie Hall MD cc: Eddie Hall MD [facility]
[2019-04-17] MEDS: LIPOSYN 20% 250 ML IV SCH (06:25)
[2019-04-17] MEDS: SYNTHROID IV SCH (06:25)
[2019-04-17] MEDS: HEPARIN 25,000 UNIT in NS 250 ML IV SCH (06:26)
[2019-04-17] MEDS: HUMULIN R SUBQ SCH ×4 (06:35→20:12)
--- NOTE | 2019-04-17 07:09 | Diag Imaging Result Doc PS360 ---
EXAM: CHEST-PORTABLE 04/17/2019 HISTORY: dyspnea TECHNIQUE: AP portable at 0544 COMMENT: There are bilateral pleural effusions. There is cardiomegaly. There is a right subclavian central venous catheter with its tip just above the right atrium. There is hazy pulmonary edema bilaterally. IMPRESSION: Bilateral pleural effusions and pulmonary edema. Cardiomegaly. Essentially unchanged since 04/16/2019. Electronically signed by Saurabh Jay 04/17/2019 7:07 AM
[2019-04-17] MEDS ORDERED: LASIX IV ONE (07:16)
--- NOTE | 2019-04-17 07:30 | CARDIOLOGY PROGRESS NOTE ---
DATE: 04/16/2019 SUBJECTIVE: Ms. Vallejo reports she feels a little bit better today. She did have a little bit of a rough night secondary to pain in her abdomen. OBJECTIVE: Vital signs: She is afebrile. Heart rate of 82. Her blood pressure is 148/52. General: She is in no acute distress. Cardiovascular: she sounds to be in a regular rate and rhythm. Her telemetry currently shows what appears to be sinus. She has a mechanical S1. No lower extremity edema, warm and well perfused extremities. Chest: Clear bilaterally. She has no increased work of breathing. Abdomen: Soft, diffuse tenderness. PERTINENT DATA: Lab rosa, white count is 10.1, hematocrit is 30, which is up from 21 yesterday, her platelet count is 219,000. Her sodium is 139, potassium 4.1, BUN 12, creatinine 0.6. Her albumin is 2.4. ASSESSMENT: Ms. Vallejo is a 68-year-old female with gastric cancer who underwent previous gastrectomy, with postoperative atrial fibrillation as well, and a mechanical mitral valve. PLAN: She is on intravenous heparin. She has had a transfusion and her hematocrit is up to 30. She has so for a significantly negative fluid balance today. No acute recommendations today. cc: Manish Crowell MD
[2019-04-17] MEDS ORDERED: POTASSIUM CHLORIDE 40 MEQ/SWI 40 MEQ/100 ML IVPB IV ONE (07:52)
[2019-04-17] MEDS: SODIUM CHLORIDE 0.9% INJ SCH ×2 (08:26→20:11)
[2019-04-17] MEDS: PROTONIX IV SCH ×2 (08:26→20:11)
--- NOTE | 2019-04-17 10:17 | PROGRESS NOTE ---
DATE: 04/17/2019 SUBJECTIVE: This patient is status post total gastrectomy and feeding tube jejunostomy placement, postoperative day 4. Electrolytes are stable, a little bit low the potassium, which will be replaced. Stable hemoglobin. We do have a negative balance of 735 mL but she is still having pulmonary edema, so I will give her an extra dose of Lasix IV today to see how she does. So far, the kidney function has been within normal limits. OBJECTIVE: Vital Signs: Temperature 97.1 degrees, pulse 82, respiratory rate 21, blood pressure 144/46, oxygen saturation 93 on 4 L of nasal cannula. HEENT: Head normocephalic, no trauma. PERRLA. Neck: Supple. No JVD. No masses. Central trachea. Chest: Decreased breath sounds at the bases with some crepitus and rales. Abdomen: Soft. Generalized tenderness to palpation, mostly at the perioperative area and periumbilical area. She has a couple of dressings, and they look clean. She has a feeding tube without any signs of infection. Decreased bowel sounds. Extremities: No edema. No clubbing. No cyanosis. Neurological: The patient is alert and oriented x3. No focal neurological deficit, but she is weak. LABORATORY: WBC 7.1, hemoglobin 9.6, hematocrit 30.5, platelets 259,000. Sodium 143, potassium 3.4, chloride 99, bicarbonate 35, BUN 11, creatinine 0.5, glucose 143, calcium 8.3, albumin 2.4. ASSESSMENT AND PLAN: 1. Newly diagnosed gastric adenocarcinoma, initially admitted due to upper gastrointestinal bleed, status post total gastrectomy with feeding tube jejunostomy placement, postoperative day 4. She seems to be doing better. Surgery Department on board. We will continue to monitor. 2. History of atrial fibrillation with mechanical valve placement. Continue with same management. She seems to be stable. Continue with heparin drip. Cardiology on board. 3. Diabetes. Continue with same management. Stable. 4. Hypothyroidism. Continue with IV levothyroxine. 5. Mild congestive heart failure, aware. We will continue with gentle diuresis since this patient is not on a diet. She is on Clinimix and lipids. X-ray showed pulmonary edema again. We have a negative balance of 735. I will give her an extra dose of Lasix today. Kidney function stable. 6. Anemia, likely secondary to acute blood loss, status post 2 packed red blood cells. Hemoglobin improved from 6.6 to 9.9. Today's is stable as well at 9.6. 7. Leukocytosis, likely reactive, resolved. 8. Pulmonary edema on the x-ray and physical exam. She has been getting Lasix for the past couple of days, and she has been responding well. I will give her an extra dose today. Kidney function stable. 9. Hypokalemia, I will replace it. CRITICAL CARE TIME: 35 minutes. cc: Francisco Barrera MD MTDD
--- NOTE | 2019-04-17 11:12 | PROVIDER PROGRESS NOTE ---
Progress Note SUBJECTIVE: No acute overnight events. Mild nausea without vomiting. Afebrile. No CP, SOB, rectal bleeding. +flatus. No BM. OBJECTIVE: Last Vital Signs Temp 97.9 F 04/17/19 08:00 Pulse 81 04/17/19 10:17 Resp 23 04/17/19 10:17 BP 139/48 04/17/19 10:17 Pulse Ox 99 04/17/19 10:17 Height 5 ft 6 in Weight 145 lb 6 oz GEN: awake, alert, NAD HEENT: anicteric, MMM, EOMI NECK: supple, no jvd CV: mitral valve click, no murmurs, RRR PULM: normal WOB, no wheezing ABD: midline incision with dressing c/d/i, j-tube in place EXT: no cce NEURO: nonfocal LABS: 04/17/19 04/17/19 05:00 05:00 WBC 7.16 Hgb 9.6 L Plt Count 259 Sodium 143 Potassium 3.4 L D Chloride 99 Carbon Dioxide 35 BUN 11 Creatinine 0.5 Glucose 143 H Albumin 2.4 L CXR shows pulmonary edema ASSESSMENT AND PLAN: Ms Valerie Vallejo is a 68-year-old woman with a history of mechanical mitral valve on Coumadin, afib, hypertension, noninsulin-dependent diabetes, who presents with acute blood loss anemia after EGD with polypectomy revealing gastric adenocarcinoma s/p subtotal gastrectomy and j-tube placement. No transf usion needs. #GIB: resolved: trending H/H, transfuse as needed to maintain hgb 7-8; continue IV PPI BID #Hallucinations: resolved; minimize pain meds; correct lytes #Gastric adenocarcinoma: 2/2 subtotal gastrectomy and surgical j-tube: oncology and surgery following; on clinimix and lipids #Mechanical valve: on heparin drip #Afib: on amiodarone drip #CHF: gentle diuresis per primary team Will follow with you. Please call with questions
[2019-04-17] MEDS: HEPARIN 25,000 UNIT in NS 250 ML IV PRN (12:00)
[2019-04-17] MEDS: DILAUDID IV PRN ×2 (12:23→21:36)
[2019-04-17] MEDS: CLINIMIX E 4.25%-5% SOLUTION 1,000 ML IV SCH (15:00)
--- NOTE | 2019-04-17 15:55 | CARDIOLOGY PROGRESS NOTE ---
DATE: 04/17/2019 SUBJECTIVE: Ms. Vallejo feels marginally better today. She is sitting up in the chair and after my exam she is actually working with physical therapy. She continues to have abdominal soreness. Continues to be NPO. PHYSICAL EXAMINATION: Vital signs: She is afebrile. Her heart rate is in the 80s predominantly. Her blood pressure is 139/48. Generally: She is in no acute distress. Cardiovascular: She sounds to be in an irregularly irregular rhythm. She currently appears to be in atrial fib. She has a mechanical S1. She has no lower extremity edema. Chest: Exam sounds clear. She has no increased work of breathing. PERTINENT DATA: White count 7.1, hematocrit is 30 which is stable from yesterday, platelet count is 259,000. Her sodium is 143, potassium 3.4. Her BUN is 11, creatinine 0.5, albumin is 2.4. ASSESSMENT: Ms. Vallejo is a 68-year-old female who had a gastrectomy secondary to gastric cancer. She has postoperative atrial fibrillation, as well as mechanical mitral valve. PLAN: She continues on intravenous heparin. Her blood counts are stable from yesterday. I have no acute recommendations. cc: Manish Crowell MD
[2019-04-17] MEDS: OFIRMEV 1000 MG/ISOTONIC SOLN 1,000 MG/100 ML BOTTLE IV PRN (20:11)
--- NOTE | 2019-04-17 21:29 | GENERAL SURGERY PROGRESS NOTE ---
DATE: 04/17/2019 SUBJECTIVE: She is sitting in a chair, feeling some better. Still weak. No fevers. No tachycardia overnight. Blood pressure has been okay. OBJECTIVE: Abdomen is soft. She also began having bowel function. Incision intact. J-tube is in place. White count 7, hematocrit 30. Potassium is low at 3.4, creatinine 0.5. ASSESSMENT AND PLAN: A 68-year-old female status post subtotal gastrectomy. She is doing okay. With return of bowel function today, will start trophic tube feeds and monitor her tolerance of this going forward. Continue out of bed. Pulmonary toileting. cc: Rubi Denis MD
[2019-04-18] MEDS: CORDARONE 360 MG/D5W 360 MG/200 ML IV.SOLN IV SCH ×3 (03:13→15:54)
[2019-04-18] MEDS: HEPARIN 25,000 UNIT in NS 250 ML IV PRN ×2 (03:13→20:20)
[2019-04-18 05:40] LABS: BASO# 0.04 X1000 (0.0-0.2); BASO% 0.6 % (0.0-0.8); EOS# 0.18 X1000 (0.0-0.7); EOS% 2.7 % (0.0-10.0); HEMATOCRIT 31.8 % (37.0-47.0); HEMOGLOBIN 10.1 g/dL (12.0-16.0); IMM GRAN% 1.5 % (0.0-0.5); LYMPH# 0.68 X1000 (1.2-3.4); LYMPH% 10.2 % (20.5-51.1); MCH 28.3 PG (27-31); MCHC 31.8 g/dL (33-37); MCV 89.1 FL (81-99); MPV 10.1 FL (7.4-10.4); NEUT# 5.06 X1000 (1.4-6.5); PLT 277 X1000 (130-400); RBC 3.57 XMIL (4.2-5.4); RDW 15.6 % (11.5-14.5); WBC 6.66 X1000 (4.8-10.8)
[2019-04-18 06:06] LABS: AGAP 6; ALB/GLOB RATIO 1.1; ALBUMIN 2.6 g/dL (3.5-5.0); ALKALINE PHOSPHATASE 68 U/L (32-104); BUN 17 mg/dL (8-22); CALCIUM 8.3 mg/dL (8.8-10.2); CHLORIDE 98 mmol/L (98-107); COSMO 285; CREATININE 0.6 mg/dL (0.5-0.9); ESTIMATED GFR > 60; GLUCOSE 140 mg/dL (70-104); GOT 11 U/L (10-30); GPT 13 U/L (10-36); MAGNESIUM 2.2 mg/dL (1.5-2.7); PHOSPHORUS 3.1 mg/dL (2.7-4.5); POTASSIUM 3.3 mmol/L (3.5-5.1); SODIUM 141 mmol/L (136-145); TCO2 37 mmol/L (25-35); TOTAL BILIRUBIN 0.42 mg/dL (0.20-1.00)
[2019-04-18] MEDS: SYNTHROID IV SCH (06:07)
[2019-04-18] MEDS: LIPOSYN 20% 250 ML IV SCH (06:15)
[2019-04-18] MEDS: HUMULIN R SUBQ SCH ×4 (06:18→21:14)
--- NOTE | 2019-04-18 06:49 | Diag Imaging Result Doc PS360 ---
EXAM: CHEST-PORTABLE HISTORY: dyspnea TECHNIQUE: Portable chest single view COMPARISON: 04/17/2018 FINDINGS: There are small bilateral pleural effusions. There is basilar infiltrates and atelectasis as well as pulmonary edema. The heart is mildly enlarged. No change in the right-sided portacatheter. There is a left-sided pacemaker and sternal wires. IMPRESSION: No interval improvement. Electronically signed by Enrique Bautista 04/18/2019 6:47 AM
[2019-04-18] MEDS ORDERED: POTASSIUM CHLORIDE 40 MEQ/SWI 40 MEQ/100 ML IVPB IV ONE (07:33)
[2019-04-18] MEDS ORDERED: LASIX IV ONE (07:33)
[2019-04-18] MEDS: PROTONIX IV SCH ×2 (08:13→20:20)
[2019-04-18] MEDS: SODIUM CHLORIDE 0.9% INJ SCH ×2 (08:13→20:20)
--- NOTE | 2019-04-18 08:38 | PROGRESS NOTE ---
DATE: 04/18/2019 SUBJECTIVE: This patient is status post gastrectomy and feeding tube jejunostomy placement, postoperative day #5, electrolytes are stable, a little bit low potassium, which will be replaced. Also x-ray showed pulmonary edema. I will give her a low dose of Lasix today again to see how she does. In 24 hours she had a negative balance of 567 mL. Kidney function stable. OBJECTIVE: Vital Signs: Temperature 98.1 degrees, pulse 80, respiratory rate 17, blood pressure 154/52, oxygen saturation 97% on 4 L of nasal cannula. HEENT: Head normocephalic. No trauma. PERRLA. Neck: Supple. No JVD. No masses. Central trachea. Chest: Decreased breath sounds at the bases with some crepitus and rales. Abdomen: Soft, generalized tenderness to palpation, mostly at the level of the perioperative area and periumbilical area. She has a couple of dressings and they look clean, she has a feeding tube that is working fine. Decreased bowel sounds, but present. Extremities: No edema, no clubbing, no cyanosis. Neurological: The patient is alert and oriented x3. No focal deficit, but she is weak. LABORATORY: WBC 6.6, hemoglobin 10.1, hematocrit 31.8, platelets 277,000. Sodium 141, potassium 3.3, chloride 98, bicarbonate 37, BUN 17, creatinine 0.6, glucose 140, calcium 8.3, albumin 2.6. ASSESSMENT AND PLAN: 1. Newly diagnosed gastric adenocarcinoma, initially admitted due to upper gastrointestinal bleed, status post gastrectomy with feeding tube jejunostomy placement, postoperative day #5. She seems to be doing better. Surgery Department on board. They have started this patient on a low rate of feeding tube yesterday, for now we will continue with same management. 2. History of atrial fibrillation with mechanical valve placement, continue with same management. Cardiology on board. She seems to be stable. Continue with heparin drip. 3. Diabetes. Continue with same management. Stable. 4. Hypothyroidism. Continue with IV levothyroxine. 5. Mild congestive heart failure, aware. We will continue with gentle diuresis since this patient is not on a diet. 6. Mild congestive heart failure, aware. We will continue with gentle diuresis. Yesterday we started this patient on a feeding tube, but the rate is around 10 mL/hour, so I will continue with same management for now. She is on Clinimix and lipids. X-ray showed pulmonary edema. We have a negative balance of a little bit more of 500 mL. I will give her an extra dose of Lasix today low dose. 7. Anemia likely secondary to acute blood loss, status post 2 packed red blood cells, stable. 8. Leukocytosis, likely reactive. Resolved. 9. Pulmonary edema on the x-ray and physical examination. She has been getting Lasix for the past few days, and she has been responding well. Negative balance. I will give her an extra dose of Lasix today, low dose. Kidney function. Stable. 10. Hypokalemia. I will replace it. CRITICAL CARE TIME: 35 minutes. cc: Francisco Barrera MD
[2019-04-18] MEDS ORDERED: LASIX IV SCH (10:15)
[2019-04-18] MEDS: CLINIMIX E 4.25%-5% SOLUTION 1,000 ML IV SCH (10:50)
--- NOTE | 2019-04-18 13:17 | GENERAL SURGERY PROGRESS NOTE ---
DATE: 04/18/2019 SUBJECTIVE: The patient is feeling good overall. She just feels weak and has had a few episodes of nausea. She has made up to a chair over the weekend. She has had a bowel movement. OBJECTIVE: She is afebrile. Vital signs are stable.General: She is awake, alert, oriented x3. No acute distress. CV: Regular rate and rhythm. Respiratory: Bilateral breath sounds. No work of breathing. No rales. Gastrointestinal: Soft, nondistended appropriately tender. Incisional dressing is clean and dry. She has hypoactive but present bowel sounds. J-tube feeds are at 10 mL an hour. LABORATORY: White blood cell count 6.6, hemoglobin 10.1, hematocrit 31.8, platelet count 277,000. Electrolytes reviewed and unremarkable. ASSESSMENT AND PLAN: A 68-year-old female postoperative day 5, subtotal gastrectomy for adenocarcinoma of stomach. Her acute blood loss anemia appears to be stable with no ongoing bleeding at this time. We will continue her heparin drip for the mechanical cardiac valve. At this point she is making reasonably good progress. We are going to start a formal clear liquid diet and see how she tolerates it. We will keep the J-tube feeds at trophic levels for now and hopefully transition her to oral diet this week. Continue the Clinimix for parental nutritional support for now until her oral intake improves. When she when her oral intake improves we can transition her to oral medicines and hopefully stop her heparin drip and rate control drips this week. I want her to continue with physical therapy being out of bed at least twice a day and would hope to move her to a regular room or step-down unit within a day or 2. I think a rehab bed would probably be beneficial for her at the time of discharge. cc: Tobi Rockwell MD
--- NOTE | 2019-04-18 13:23 | GASTROENTEROLOGY PROGRESS NOTE ---
DATE: 04/18/2019 SUBJECTIVE: The patient is resting in bed. She is awake. She complains of discomfort in the abdomen. She is improving slowly. She had moved her bowels today, which were liquid, and black and tarry. She denies any nausea or vomiting. PHYSICAL EXAMINATION: Vital Signs: Temperature of 98.1, pulse rate of 80, respiratory rate of 17, blood pressure 154/52, saturating 97% on nasal cannula at 4 L. Body weight of 145 pounds, 6 ounces. BMI 23.5 kg/m2. General Appearance: Thinly built, lying in bed, in no acute distress. HEENT: Pale conjunctivae. No icterus. Neck: Supple. Abdomen: Has a surgical dressing in place. She has a J-tube in place. Discomfort in the abdominal region. Extremities: No cyanosis, clubbing. Neurologic: She is alert, awake, oriented x3. LABS: Hemoglobin and hematocrit are 10.1 and 31.8, white count of 6.6, platelet count of 277,000. PTT of 102.3. Sodium 141, potassium 3.3, chloride 98, bicarb 30, anion gap of 6, BUN of 17, creatinine 0.6, glucose of 140, calcium is 8.3, phosphorus 3.1, magnesium 2.2. Total bilirubin is 0.42, AST 11, ALT 13, alkaline phosphatase of 68, total protein is 5, albumin of 2.6. Chest x-ray done today showed no interval improvement, small bilateral pleural effusions. There is basilar infiltrates and atelectasis with pulmonary edema. The heart is mildly enlarged. There is a left- sided pacemaker and sternal wires. IMPRESSION AND PLAN: 1. Chronic anemia requiring an outpatient esophagogastroduodenoscopy which showed evidence of a gastric polyp which was resected and pathology revealed gastric adenocarcinoma, complicated with a gastrointestinal bleed requiring admission, now status post subtotal gastrectomy and J- tube placement per Dr. Rockwell. 2. Subtotal gastrectomy and J-tube placement by Dr. Rockwell. She is being followed by the surgery team. 3. Gastrointestinal bleeding. Continue to follow hemoglobin and hematocrit. She had some dark stools. We will keep her on intravenous proton pump inhibitors twice a day. 4. Gastric adenocarcinoma, status post subtotal gastrectomy and J-tube placement. Oncology is following. 5. Malnutrition. She continues on Clinimix and lipids, and mechanical valve. She is on a heparin drip. Continue to watch hemoglobin and hematocrit, and transfuse as needed. 6. Atrial fibrillation. She is on an amiodarone drip. 7. Congestive heart failure. Being monitored by the cardiology team. 8. History of mechanical mitral valve, on chronic Coumadin at home. Currently being on heparin infusion while in the intensive care unit. 9. Anemia. Continue to watch for now, transfuse as needed. 10. Above plan of care was discussed with the patient and family at bedside. All questions were answered. Please call us with any further questions. cc: MD Alessio Gallo MD
[2019-04-18] MEDS: DILAUDID IV PRN ×3 (13:58→22:42)
--- NOTE | 2019-04-18 18:09 | HEMO/ONC PROGRESS NOTE ---
DATE: 04/18/2019 SUBJECTIVE: The patient says she is slowly feeling better. The patient says she feels pretty weak. Denies any signs of bleeding though. OBJECTIVE: Vital Signs: Temperature 98.1 degrees, heart rate 80, respiratory rate 17, blood pressure 154/82, saturation 97% on room air. General: The patient is awake, lying in bed, no acute distress noted. HEENT: Anicteric. PERRLA. Mucous membranes dry. Cardiovascular: S1, S2. Regular rate and rhythm. Chest: Bilateral breath sounds diminished bilaterally. Abdomen: Soft. Generalized tenderness to palpation, especially on operative site. Dressing intact. Tube feeding working well. Bowel sounds hypoactive. Neurologic: Alert and oriented x3. No focal deficits noted. LABORATORY DATA: White blood cell count is 6.66, hemoglobin 10.1, hematocrit of 31.8, platelets are 277. Potassium 3.3, BUN 17, creatinine 0.6, calcium 8.3. ASSESSMENT AND PLAN: 1. Gastric carcinoma: The patient is status post total gastrectomy. Feeding tube in place. Waiting on pathology results at this time. We will continue to monitor and follow up. 2. Valvular heart disease with moderate aortic stenosis with mild aortic regurgitation: Continue anticoagulation as ordered. 3. Postoperative atrial fibrillation: Continue recommendations per Cardiology. 4. Anemia: Hemoglobin and hematocrit continue to improve today. Continue to monitor. Transfuse as needed. Dictated by AUDREY Jarquin for Eddie Hall MD MTDD
[2019-04-19] MEDS: DILAUDID IV PRN (02:39)
[2019-04-19] MEDS: CORDARONE 360 MG/D5W 360 MG/200 ML IV.SOLN IV SCH (03:11)
[2019-04-19] MEDS: ZOFRAN IV PRN (04:28)
[2019-04-19 05:24] LABS: BASO# 0.02 X1000 (0.0-0.2); BASO% 0.3 % (0.0-0.8); EOS# 0.22 X1000 (0.0-0.7); EOS% 2.8 % (0.0-10.0); HEMATOCRIT 33.8 % (37.0-47.0); HEMOGLOBIN 10.7 g/dL (12.0-16.0); IMM GRAN# 0.13 X1000 (0.0-0.04); IMM GRAN% 1.7 % (0.0-0.5); LYMPH# 0.59 X1000 (1.2-3.4); LYMPH% 7.6 % (20.5-51.1); MCH 28.2 PG (27-31); MCHC 31.7 g/dL (33-37); MCV 88.9 FL (81-99); MONO# 0.79 X1000 (0.11-0.59); MONO% 10.2 % (1.7-9.3); MPV 10.2 FL (7.4-10.4); NEUT# 6.03 X1000 (1.4-6.5); NEUT% 77.4 % (42.2-75.2); PLT 296 X1000 (130-400); RDW 15.7 % (11.5-14.5); WBC 7.78 X1000 (4.8-10.8)
[2019-04-19 05:46] LABS: AGAP 9; ALB/GLOB RATIO 1.2; ALKALINE PHOSPHATASE 99 U/L (32-104); BUN 18 mg/dL (8-22); CALCIUM 8.4 mg/dL (8.8-10.2); CHLORIDE 94 mmol/L (98-107); COSMO 282; CREATININE 0.6 mg/dL (0.5-0.9); ESTIMATED GFR > 60; GLUCOSE 147 mg/dL (70-104); GOT 12 U/L (10-30); GPT 12 U/L (10-36); MAGNESIUM 2.3 mg/dL (1.5-2.7); PHOSPHORUS 3.8 mg/dL (2.7-4.5); POTASSIUM 3.9 mmol/L (3.5-5.1); SODIUM 139 mmol/L (136-145); TCO2 36 mmol/L (25-35); TOTAL BILIRUBIN 0.42 mg/dL (0.20-1.00); TOTAL PROTEIN 5.5 g/dL (6.3-8.3)
[2019-04-19] MEDS ORDERED: HEPARIN 25,000 UNIT in NS 250 ML IV PRN (06:12)
[2019-04-19] MEDS: SYNTHROID IV SCH (06:35)
[2019-04-19] MEDS: LIPOSYN 20% 250 ML IV SCH (06:36)
[2019-04-19] MEDS: SODIUM CHLORIDE 0.9% INJ PRN (06:36)
[2019-04-19] MEDS: HUMULIN R SUBQ SCH ×4 (06:51→20:12)
--- NOTE | 2019-04-19 06:59 | Diag Imaging Result Doc PS360 ---
CHEST-PORTABLE - 04/19/2019 INDICATION: dyspnea COMPARISON: 04/18/2019 FINDINGS: Stable pacemaker and surgical changes to the heart. Stable right-sided central line. Stable cardiomegaly and pulmonary vascular congestion. There has been decrease in the bibasilar opacifications, likely pleural effusions. No new abnormality. IMPRESSION: Improved aeration of the lung bases. Cardiomegaly. Small bilateral pleural effusions. Electronically signed by Benson Neves 04/19/2019 6:56 AM
[2019-04-19] MEDS: CLINIMIX E 4.25%-5% SOLUTION 1,000 ML IV SCH (07:25)
[2019-04-19] MEDS ORDERED: GLUCOPHAGE PO SCH (09:00)
--- NOTE | 2019-04-19 09:48 | PROVIDER PROGRESS NOTE ---
Progress Note SUBJECTIVE: No acute overnight events. Mild nausea. Tolerating clears. No V/F, CP, SOB. Abdominal pain controlled. +Flatus. No BMs. On J-tube trickle feeds OBJECTIVE: Last Vital Signs Temp 97.7 F 04/19/19 04:01 Pulse 80 04/19/19 08:37 Resp 14 04/19/19 08:37 BP 163/59 04/19/19 07:02 Pulse Ox 96 04/19/19 08:37 Height 5 ft 6 in Weight 133 lb 4.8 oz GEN: awake, alert, NAD HEENT: anicteric, MMM, EOMI NECK: supple, no jvd CV: mitral valve click, no murmurs, RRR PULM: normal WOB, no wheezing ABD: midline incision with dressing c/d/i, j-tube in place EXT: no cce NEURO: nonfocal LABS: 04/19/19 04/19/19 04:17 04:17 WBC 7.78 Hgb 10.7 L Plt Count 296 Sodium 139 Potassium 3.9 D Chloride 94 L Carbon Dioxide 36 H BUN 18 Creatinine 0.6 Glucose 147 H ASSESSMENT AND PLAN: Ms Valerie Vallejo is a 68-year-old woman with a history of mechanical mitral valve on Coumadin, afib, hypertension, noninsulin-dependent diabetes, who presents with acute blood loss anemia after EGD with polypectomy revealing gastric adenocarcinoma s/p subtotal gastrectomy and j-tube placement. No transfusion needs. She is slowly improving. #GIB: resolved: trending H/H, transfuse as needed to maintain hgb 7-8; ok to stop PPI; stop heparin drip and transition to lovenox bridge to coumadin #Gastric adenocarcinoma: 2/2 subtotal gastrectomy and surgical j-tube: oncology and surgery following; on clinimix and lipids; advance diet as tolerated per surgery recs #Afib: on amiodarone drip; transition to oral meds per cardiology #CHF: diuresis as per primary team #Anemia: stable Will sign off. Please call with questions.
[2019-04-19] MEDS: ALDACTONE PO SCH (09:57)
[2019-04-19] MEDS: PRINIVIL PO SCH (09:57)
[2019-04-19] MEDS: LASIX PO SCH (09:57)
[2019-04-19] MEDS: LOVENOX SUBQ SCH ×2 (09:58→20:28)
[2019-04-19] MEDS: COUMADIN PO SCH (09:58)
--- NOTE | 2019-04-19 10:52 | PROGRESS NOTE ---
DATE: 04/19/2019 SUBJECTIVE: Patient reports feeling fine. She reports that Dilaudid is causing headache and some nausea when she receives it. No other issues noted as per nursing staff overnight. OBJECTIVE: Vital Signs: Temperature 97.7 degrees, heart rate 84, respiratory rate 17, blood pressure 163/65, O2 saturation 96% on 4 L nasal cannula. General: This is a chronically ill- appearing, 68-year-old female lying in bed, in no acute distress. HEENT: Head is normocephalic, atraumatic. Mucous membranes dry. Neck: No JVD noted. No carotid bruits. No lymphadenopathy. No thyromegaly. Cardiovascular: S1, S2 heard. No murmurs, gallops, or rubs. Regular rate and rhythm. Respiratory: Minimal crepitus rales in both pulmonary bases. Patient is not using any accessory muscles or having work of breathing. Abdomen: Soft. There is generalized tenderness to palpation, but is mostly located in the operative area and periumbilical area as well. The patient has a feeding tube placed down. Bowel sounds present. No signs of peritoneal irritation. Extremities: No clubbing, cyanosis, or edema. Peripheral pulses present in both legs. Neurological: Patient alert oriented x3. Moves 4 extremities. LABORATORY DATA: White cell count 7.78, hemoglobin 10.7, hematocrit 33.8, platelets 296,000 with a normal BMP except glucose 147. ASSESSMENT AND PLAN: 1. Newly diagnosed gastric adenocarcinoma, initially admitted due to upper gastrointestinal bleed, status post gastrectomy with feeding tube jejunostomy placement, postoperative day #6. Clinically, this patient is doing fine. Surgery is following this patient and they are okay to start full liquid diet. We are going to start home medications on this patient by mouth. Apparently, she is not going to continue with tube feedings, only with a full liquid diet. We will follow recommendations. 2. Atrial fibrillation with mechanical valve replacement. The patient has been on heparin drip. I think at this point the patient has been restarted back on warfarin. Considering her high risk of clotting because of this mechanical valve replacement, Lovenox has been started as well. Of course we will need to check INR daily and see how this patient does. Also, patient is on amiodarone drip. Now, that she has been cleared by General Surgery and she can take oral medication by mouth, we will check with Cardiology to see if they prefer to continue with amiodarone drip or they prefer to change to oral amiodarone. We will see what they have to say. 3. Diabetes mellitus type 2. We will continue with insulin sliding scale, but I do prefer to stop metformin while this patient is here in the hospital. 4. Hypothyroidism. Patient is going to be given her home doses of Synthroid. In this case, 100 mcg p.o. daily. 5. Mild congestive heart failure. The x-ray from today shows improvement. Clinically, she has minimal crackles in both pulmonary bases. I think at this point, we will continue with Lasix by mouth. Currently, this patient is receiving Clinimix 15 mL/hour and also lipids at 10 mg/hour as well. At this point, I will leave the decision to stop those medications to General Surgery, but regarding congestive heart failure, she is getting better. 6. Anemia, likely secondary to acute blood loss. Hemoglobin definitely is stable, yesterday was 10.1, today is 10.7, we will continue to monitor CBC daily. 7. Leukocytosis, resolved. 8. Pulmonary edema. As we mentioned above, with congestive heart failure, we will continue with oral Lasix. 9. Hypokalemia, resolved. CRITICAL CARE TIME: 30 minutes. cc: Darrin Pierson MD MTDD
[2019-04-19] MEDS: NORCO-7.5 PO PRN ×3 (11:22→20:28)
[2019-04-19] MEDS ORDERED: CORDARONE PO SCH (13:00)
--- NOTE | 2019-04-19 13:30 | GENERAL SURGERY PROGRESS NOTE ---
DATE: 04/19/2019 SUBJECTIVE: The patient had trouble sleeping last night because she thinks due to the Dilaudid. She is tolerating a clear liquid diet. She was able to stand up yesterday but could not walk very far due to multiple lines and tubes connected to her. OBJECTIVE: Vital Signs: She is afebrile. Vital signs are stable. General Examination: She is awake, alert, and oriented x4. No acute distress. CV: Regular rate and rhythm. Respiratory: Bilateral breath sounds. No work of breathing. Gastrointestinal: Soft, nondistended. Minimally tender. Incision is clean, dry, and intact. J-tube is intact with 10 mL per hour of feeds going. Laboratory: White blood cell count 7.8, hemoglobin 10.7, hematocrit 33.8, platelet count 296,000. Electrolytes reviewed and unremarkable. Imaging: A chest x-ray this morning shows improved aeration of the lung bases and small bilateral pleural effusions. ASSESSMENT AND PLAN: A 68-year-old female postoperative day 6 of subtotal gastrectomy for adenocarcinoma of the stomach. Pathology is pending. She is hemodynamically stable. Her lab work is stable. We are going to start transitioning her off of multiple drips and get her ready for going to the floor and then eventually to rehab by the end of the week or early next week so I have stop the heparin drip today and started back her Coumadin. We also will do Lovenox twice daily. I am going to turn off the J-tube feeds and just have it flushed every 4 hours, and increase her diet to a full liquid diet, and then add LiquaCel and Boost supplements. I am going to restart her home medicines except for the rate control medicines which I will defer to cardiology or the hospitalist. I want her to continue working with physical therapy and walking more. I plan to move her to a regular room within the next 24 hours, hopefully. cc: Tobi Rockwell MD
[2019-04-19] MEDS: COREG PO SCH (15:36)
[2019-04-19] MEDS: ZOCOR PO SCH (20:28)
[2019-04-19] MEDS ORDERED: COUMADIN PO ONE (21:00)
[2019-04-20] MEDS: NORCO-7.5 PO PRN ×2 (02:48→17:53)
[2019-04-20] MEDS: CLINIMIX E 4.25%-5% SOLUTION 1,000 ML IV SCH (02:52)
[2019-04-20 05:36] LABS: BASO# 0.02 X1000 (0.0-0.2); BASO% 0.3 % (0.0-0.8); EOS# 0.22 X1000 (0.0-0.7); EOS% 3.1 % (0.0-10.0); HEMATOCRIT 33.1 % (37.0-47.0); HEMOGLOBIN 10.6 g/dL (12.0-16.0); IMM GRAN# 0.13 X1000 (0.0-0.04); IMM GRAN% 1.8 % (0.0-0.5); LYMPH# 0.59 X1000 (1.2-3.4); LYMPH% 8.3 % (20.5-51.1); MCH 28.6 PG (27-31); MCV 89.2 FL (81-99); MONO# 0.49 X1000 (0.11-0.59); MONO% 6.9 % (1.7-9.3); MPV 10.4 FL (7.4-10.4); NEUT# 5.68 X1000 (1.4-6.5); NEUT% 79.6 % (42.2-75.2); PLT 291 X1000 (130-400); RBC 3.71 XMIL (4.2-5.4); RDW 15.7 % (11.5-14.5); WBC 7.13 X1000 (4.8-10.8)
[2019-04-20 05:46] LABS: INR 1.07; PROTIME 14.8 Seconds (11.0-16.0)
[2019-04-20 05:58] LABS: AGAP 8; BUN 17 mg/dL (8-22); CALCIUM 8.4 mg/dL (8.8-10.2); CHLORIDE 96 mmol/L (98-107); COSMO 277; CREATININE 0.6 mg/dL (0.5-0.9); ESTIMATED GFR > 60; GLUCOSE 133 mg/dL (70-104); POTASSIUM 4.4 mmol/L (3.5-5.1); SODIUM 137 mmol/L (136-145); TCO2 33 mmol/L (25-35)
[2019-04-20] MEDS: SYNTHROID PO SCH (06:03)
[2019-04-20] MEDS: HUMULIN R SUBQ SCH ×4 (06:06→20:09)
[2019-04-20] MEDS: LIPOSYN 20% 250 ML IV SCH (06:37)
[2019-04-20] MEDS: LOVENOX SUBQ SCH ×2 (09:16→20:10)
[2019-04-20] MEDS: LANOXIN PO SCH (09:16)
[2019-04-20] MEDS: COUMADIN PO SCH (09:16)
[2019-04-20] MEDS: ALDACTONE PO SCH (09:16)
[2019-04-20] MEDS: LASIX PO SCH (09:16)
[2019-04-20] MEDS: PRINIVIL PO SCH (09:16)
[2019-04-20] MEDS: COREG PO SCH ×2 (09:16→20:10)
--- NOTE | 2019-04-20 10:42 | PROGRESS NOTE ---
DATE: 04/20/2019 SUBJECTIVE: The patient reports feeling fine. She is sitting in the chair. She had a bowel movement yesterday, and she apparently has walked with Physical Therapy 90 feet. She is doing fine. OBJECTIVE: Vital Signs: Temperature 97.6 degrees, heart rate 85, respiratory rate 24, blood pressure 113/42, O2 saturation 94% on room air. General: This is a chronically ill-appearing, 68- year-old, female, lying in bed in no acute distress. Cardiovascular: S1, S2 heard. No murmurs, gallops, or rubs. Regular rate and rhythm. Respiratory: Minimal rales and crepitus in both pulmonary bases. The patient is not using any accessory muscles or having work of breathing. Abdomen: Soft. Mild generalized tenderness to palpation, mostly in periumbilical area. Bowel sounds present. No signs of peritoneal irritation. Extremities: No clubbing, cyanosis, or edema. Peripheral pulses present in both legs. Neurological: The patient is alert and oriented x3. Moves 4 extremities. LABORATORY DATA: White cell count 7.13, hemoglobin 10.6, hematocrit 33.1, platelets 291,000. Normal BMP. ASSESSMENT AND PLAN: 1. Newly-diagnosed gastric adenocarcinoma, status post gastrectomy, postoperative day #6. Clinically, this patient is doing fine. General Surgery is following this patient. She has been cleared to start eating. She has been feeling fine. Home medications have been restarted. 2. Atrial fibrillation with mechanical valve replacement. The patient is on warfarin and Lovenox to bridge. INR, of course, is still not therapeutic. It is 1.07 today. Will continue to monitor. Also, we have started her on home medications for controlling heart rate. Amiodarone drip has been stopped. 3. Diabetes mellitus type 2. Will continue with sliding scale insulin and Accu- Cheks before meals and also at bedtime. Metformin has been stopped. 4. Hypothyroidism. Will continue with Synthroid 100 mcg by mouth daily. 5. Anemia of acute blood loss, stable. Will continue to monitor. 6. Pulmonary edema. The patient is on oral Lasix. The patient is receiving Clinimix and Lipids. I think if tomorrow diet is changed to more consistent one. I think we can stop those medication tomorrow. 7. Disposition. We are going to transfer this patient to [facility] unit. cc: Darrin Pierson MD [facility]
--- NOTE | 2019-04-20 12:23 | GENERAL SURGERY PROGRESS NOTE ---
DATE: 04/20/2019 SUBJECTIVE: The patient feels better today. She slept more last night. She sat up in a chair for 9 hours yesterday! She is tolerating her full liquid diet. OBJECTIVE: Vital Signs: She is afebrile. Vital signs are stable. Urine output 3300 mL. Cardiovascular: Regular rate and rhythm. Respiratory: Bilateral equal breath sounds. No work of breathing. Gastrointestinal: Soft, nondistended, mildly tender. Incision is clean, dry, and intact, without erythema. J-tube is intact. LABORATORY DATA: White blood cell count 7, hemoglobin 10.6. INR 1.07. Electrolytes are reviewed and unremarkable. Prealbumin 14.9. IMAGING: Chest x-ray this morning shows improved aeration of the lung bases, and small bilateral pleural effusions. ASSESSMENT AND PLAN: A 68-year-old female, postoperative day 7, near-total gastrectomy for adenocarcinoma. The final pathology is pending. Overall, she is doing quite well and making good progress. I am planning to transfer her to the stepdown unit today. We will discontinue the Palmer catheter. I will advance her to a post gastrectomy soft diet, and if she tolerates this, we will stop the Clinimix and lipids tomorrow. I am awaiting the Social Work assessment for rehab, and she has been started back on Coumadin. Mike is on board for a bridge. Appreciate all other consultants assistance, and the hospitalist as well. cc: Tobi Rockwell MD
--- NOTE | 2019-04-20 14:08 | CARDIOLOGY PROGRESS NOTE ---
DATE: 04/20/2019 SUBJECTIVE: A 68-year-old lady status post gastrectomy for gastric cancer, mechanical mitral valve replacement, atrial fibrillation, permanent pacemaker implantation. The patient overnight, had no chest pain. She is progressing well, advanced to having a soft diet. Feels well. PHYSICAL EXAMINATION: Vital Signs: Blood pressure 120/70. Heart: Mechanical prosthetic valve sounds were heard. Respiratory: Normal air entry. There are no crepitations or rhonchi. Abdomen: Soft. Central Nervous System: Alert and oriented. Was moving all 4 extremities. Extremities: No pedal edema. LABORATORY DATA: Unremarkable. INR was 1.1. RECOMMENDATIONS: 1. We will increase her Coreg to twice daily. 2. Will change the Coumadin to 5 mg p.o. at bedtime, and she received a dosage of Coumadin 5 earlier this morning. We will check a PT/INR in the morning as planned. 3. She is on digoxin as well for her atrial fibrillation. Rates are under control. 4. I have not made any other changes to her medications. Thank you. Will follow hospital course. cc: Deo Aguilar MD
[2019-04-20] MEDS: ZOCOR PO SCH (20:09)
[2019-04-21] MEDS: ZOFRAN IV PRN (00:37)
[2019-04-21] MEDS: CLINIMIX E 4.25%-5% SOLUTION 1,000 ML IV SCH (00:37)
[2019-04-21 05:34] LABS: BASO# 0.03 X1000 (0.0-0.2); BASO% 0.4 % (0.0-0.8); EOS# 0.18 X1000 (0.0-0.7); EOS% 2.6 % (0.0-10.0); HEMATOCRIT 34.8 % (37.0-47.0); HEMOGLOBIN 10.8 g/dL (12.0-16.0); IMM GRAN# 0.19 X1000 (0.0-0.04); IMM GRAN% 2.7 % (0.0-0.5); LYMPH# 0.85 X1000 (1.2-3.4); LYMPH% 12.3 % (20.5-51.1); MCH 27.8 PG (27-31); MCV 89.7 FL (81-99); MONO# 0.59 X1000 (0.11-0.59); MONO% 8.5 % (1.7-9.3); MPV 10.4 FL (7.4-10.4); NEUT# 5.07 X1000 (1.4-6.5); NEUT% 73.5 % (42.2-75.2); PLT 282 X1000 (130-400); RBC 3.88 XMIL (4.2-5.4); RDW 15.8 % (11.5-14.5); WBC 6.91 X1000 (4.8-10.8)
[2019-04-21 05:44] LABS: INR 1.28
[2019-04-21 05:56] LABS: AGAP 4; BUN 20 mg/dL (8-22); CALCIUM 8.3 mg/dL (8.8-10.2); CHLORIDE 95 mmol/L (98-107); COSMO 273; CREATININE 0.7 mg/dL (0.5-0.9); ESTIMATED GFR > 60; GLUCOSE 134 mg/dL (70-104); POTASSIUM 4.7 mmol/L (3.5-5.1); SODIUM 134 mmol/L (136-145); TCO2 35 mmol/L (25-35)
[2019-04-21] MEDS: SYNTHROID PO SCH (06:14)
[2019-04-21] MEDS: HUMULIN R SUBQ SCH ×4 (06:15→20:34)
[2019-04-21] MEDS ORDERED: TEARISOL OPH SOLUTION BOTH EYES PRN (07:43)
--- NOTE | 2019-04-21 08:38 | PROGRESS NOTE ---
DATE: 04/21/2019 SUBJECTIVE: Patient reports feeling fine. She is tolerating diet very well. She is on mechanical soft diet. Also, gauge and instrument inspector is following this patient. OBJECTIVE: Vital Signs: Temperature 98.3 degrees, heart rate 79, respiratory rate 19, blood pressure 134/57, O2 saturation 100% on room air. General: This is a chronically ill-appearing, 68-year-old female, lying in bed, in no acute distress. Cardiovascular: S1, S2 heard. No murmurs, gallops, or rubs. Regular rate and rhythm. Respiratory: Minimal rales in both pulmonary bases. Patient not using any accessory muscles or having work of breathing. Abdomen: Soft. Mild generalized tenderness to palpation, mostly in the periumbilical area but there are no signs of peritoneal irritation. Extremities: No clubbing, cyanosis, or edema. Peripheral pulses present in both legs. Neurological: Patient alert oriented x3. Moves 4 extremities. LABORATORY DATA: White cell count 6.91, hemoglobin 10.8, hematocrit 34.8, platelets 282,000. INR 1.28 with sodium 134, glucose 134. ASSESSMENT AND PLAN: 1. Newly diagnosed gastric adenocarcinoma status post gastrectomy, postoperative day #7. Clinically this patient is doing fine. General Surgery following this patient. The patient is on mechanical soft diet. Clinically continues to improve. 2. Atrial fibrillation with mechanical valve replacement. At this point, patient is on Lovenox and warfarin and we are checking INR daily. Today the INR is 1.27. We will continue with the same management. 3. Diabetes mellitus type 2. We will continue with sliding scale insulin, Accu-Chek before meals and also at bedtime. 4. Hypothyroidism. We will continue with Synthroid 100 mcg p.o. daily. 5. Anemia of acute blood loss. Stable. 6. Pulmonary edema. We will continue with Lasix. I do think this patient is getting better considering that she is tolerating diet. I think at this point, we will go ahead and discontinue Clinimix and lipids. 7. Disposition. The patient continues to improve. Physical Therapy is working with this patient. Our ultimate goal is to send her to rehab facility. cc: Darrin Pierson MD
[2019-04-21] MEDS: LANOXIN PO SCH (09:08)
[2019-04-21] MEDS: ALDACTONE PO SCH (09:08)
[2019-04-21] MEDS: LOVENOX SUBQ SCH ×2 (09:08→20:34)
[2019-04-21] MEDS: LASIX PO SCH (09:08)
[2019-04-21] MEDS: PRINIVIL PO SCH (09:08)
[2019-04-21] MEDS: COREG PO SCH ×2 (09:08→20:34)
[2019-04-21] MEDS: NORCO-7.5 PO PRN ×2 (10:17→20:34)
--- NOTE | 2019-04-21 14:45 | GENERAL SURGERY PROGRESS NOTE ---
DATE: 04/21/2019 SUBJECTIVE: The patient overall is doing well. She is sitting up in a chair this morning. She did walk in the ICU yesterday. She is drinking liquids and eating some soft food but has a low appetite. OBJECTIVE: Vital signs: She is afebrile. Vital signs are stable. General: She is awake, alert, oriented x4. No acute distress. CV: Regular rate and rhythm. Respiratory: Bilateral breath sounds. No work of breathing. Gastrointestinal: Soft. Minimally tender. Incision is clean, dry, and intact. LABORATORY: White cell count 6.9, hemoglobin 10.8. INR 1.3. Electrolytes reviewed and unremarkable. Pathology preliminary report shows adenocarcinoma with neuroendocrine features, negative margins, and negative lymph nodes. The final pathologic staging is still incomplete and pending further stains and evaluation of the depth of invasion of the mass. ASSESSMENT AND PLAN: This is a 68-year-old female status post near-total gastrectomy for adenocarcinoma of the stomach. She is making good progress. She is now rate controlled on her home oral medicines. She is being converted from Lovenox to Coumadin. She is working on her GI soft diet and I am trying to get her to rehab by the end of the week. cc: Tobi Rockwell MD
--- NOTE | 2019-04-21 17:36 | GASTROENTEROLOGY PROGRESS NOTE ---
DATE: 04/21/2019 SUBJECTIVE: Patient is resting in a chair. Her is present at bedside. The patient is beginning to eat by mouth she still has a low appetite. She has moved her bowels. The last bowel movement was reported to be on 04/19. She denies any fevers, rigors, or chills. OBJECTIVE: Vital Signs: Temperature of 97.6, pulse rate of 84, respiratory rate of 14, blood pressure 119/58, saturating 99% on room air. Body weight of 133 pounds 8 ounces. BMI of 21.5 kg/m2. General appearance: Moderately nourished, slightly thinly built, sitting in chair, in no acute distress. HEENT: Positive pallor. No icterus. Pupils equal, reactive to light and accommodation. Neck: Supple. Abdomen: Midline surgical meliza noted. There is a J-tube noted. Mild discomfort in the periumbilical region. No rebound or guarding. Extremities: No cyanosis or clubbing. Neurologic: Alert, awake, oriented x3. LABS: Hemoglobin and hematocrit is 10.8 and 34.8, white count 6.91, platelet count of 282,000. potassium 4.7, chloride 95, bicarb 24, anion gap 4, BUN of 20, creatinine 0.7, glucose of 134, calcium 8.3. INR 1.28, PTT of 17. Prealbumin of 14.9 yesterday. IMPRESSION AND PLAN: 1. Newly diagnosed gastric adenocarcinoma status post partial gastrectomy per Dr. Rockwell. This is postoperative day seven. Dr. Rockwell is following. 2. Atrial fibrillation. Aware. She is on Lovenox and warfarin. 3. History of mechanical valve replacement. She is on Coumadin. Her current INR is 1.27. 4. Anemia. Continue to watch for now and transfuse as needed. 5. Type 2 diabetes. On sliding scale insulin. 6. Hypothyroidism. On Synthroid once daily. 7. Gastrointestinal prophylaxis. PPIs. 8. Pulmonary edema. She is on Lasix. 9. Malnutrition. Her Clinimix and lipids were discontinued and she was started on Glucerna shakes, mechanical soft diet, and LiquaCel protein per the surgical team. 10. The above plans were discussed with the patient and family at bedside and all questions were answered. Please call us with any further questions. cc: MD Darrin Gallo MD John V. Irle, MD MTDD
[2019-04-21] MEDS: ZOCOR PO SCH (20:34)
[2019-04-21] MEDS ORDERED: COUMADIN PO SCH (21:00)
[2019-04-22 05:39] LABS: BASO# 0.05 X1000 (0.0-0.2); BASO% 0.6 % (0.0-0.8); EOS# 0.17 X1000 (0.0-0.7); EOS% 2.1 % (0.0-10.0); HEMATOCRIT 36.6 % (37.0-47.0); HEMOGLOBIN 11.4 g/dL (12.0-16.0); IMM GRAN# 0.33 X1000 (0.0-0.04); IMM GRAN% 4.1 % (0.0-0.5); LYMPH% 13.6 % (20.5-51.1); MCH 27.9 PG (27-31); MCHC 31.1 g/dL (33-37); MCV 89.7 FL (81-99); MONO# 0.76 X1000 (0.11-0.59); MONO% 9.4 % (1.7-9.3); MPV 10.8 FL (7.4-10.4); NEUT# 5.67 X1000 (1.4-6.5); NEUT% 70.2 % (42.2-75.2); PLT 250 X1000 (130-400); RBC 4.08 XMIL (4.2-5.4); RDW 15.9 % (11.5-14.5); WBC 8.08 X1000 (4.8-10.8)
[2019-04-22] MEDS: SYNTHROID PO SCH (06:00)
[2019-04-22] MEDS: HUMULIN R SUBQ SCH ×2 (06:00→11:56)
[2019-04-22 06:01] LABS: INR 1.3; PROTIME 17.2 Seconds (11.0-16.0)
[2019-04-22 06:24] LABS: AGAP 7; BUN 31 mg/dL (8-22); CALCIUM 9.1 mg/dL (8.8-10.2); CHLORIDE 97 mmol/L (98-107); COSMO 279; CREATININE 0.9 mg/dL (0.5-0.9); ESTIMATED GFR > 60; GLUCOSE 116 mg/dL (70-104); SODIUM 136 mmol/L (136-145); TCO2 32 mmol/L (25-35)
[2019-04-22 07:35] VITALS: BP 118/53
[2019-04-22] MEDS: COREG PO SCH (08:21)
[2019-04-22] MEDS: ALDACTONE PO SCH (08:21)
[2019-04-22] MEDS: LANOXIN PO SCH (08:21)
[2019-04-22] MEDS: PRINIVIL PO SCH (08:21)
[2019-04-22] MEDS: LASIX PO SCH (08:21)
[2019-04-22] MEDS: LOVENOX SUBQ SCH (08:24)
--- NOTE | 2019-04-22 11:53 | DISCHARGE SUMMARY ---
FADMISSION DATE: 04/11/2019 DISCHARGE DATE: 04/22/2019 ADMISSION DIAGNOSES: 1. Upper active gastrointestinal bleeding. 2. Status post esophagogastroduodenoscopy (EGD) with polypectomy. 3. Mechanical mitral valve replacement on anticoagulation. 4. Diabetes mellitus type 2. 5. Hypertension. DISCHARGE DIAGNOSES: 1. Newly diagnosed gastric adenocarcinoma, status post partial gastrectomy by Dr. Tobi Rockwell. 2. Atrial fibrillation with a mitral valve replacement, on Lovenox and Coumadin. 3. Diabetes mellitus type 2. 4. Hypothyroidism. 5. Anemia of acute blood loss anemia. 6. Pulmonary edema, on Lasix. 7. Protein calorie malnutrition, was on Clinimix and lipids but tolerated mechanical soft diet, LiquaCel and Glucerna shakes. CONSULTATIONS: 1. Dr. Tobi Rockwell. 2. Dr. Zeng. 3. Dr. Aguilar. 4. Dietary. 5. Social Service. 6. Rehab. 7. Dr. Hall for gastric cancer. SURGERIES AND PROCEDURES: 1. On 04/12/2019 Dr. Jones performed an upper intestinal endoscopy due to hematemesis, melena, acute blood loss anemia, history of gastric polyp removal, complicated by post polypectomy, on 04/11/2019. Impress revealed two nonbleeding esophageal ulcers. The postpolypectomy gastric ulcer was treated with epinephrine and Endo clip. There was a normal duodenum. His recommendations post-op were continue fluid resuscitation, IV proton pump inhibitor, 40 mg Protonix twice a day, trend the hemoglobin every 6 to 8 hours and transfuse for a hemoglobin between 7 and 8, and start heparin drip due to mitral valve. 2. On 04/14/2019 Dr. Tobi Rockwell performed a diagnostic laparoscopy and biopsy of the liver x2, open subtotal gastrectomy with Elizabeth-en-Y gastrojejunostomy, and insertion of feeding Witzel- type jejunostomy. This was performed due to gastric adenocarcinoma and upper gastrointestinal bleed. HOSPITAL COURSE: On 04/11/2019 Ms. Valerie Vallejo, a 68-year-old female with a history of stroke, diabetes, hypertension, mitral valve on anticoagulation, had undergone an EGD with polypectomy earlier on the day of admission. Apparently after the procedure the patient started bleeding, that was cauterized, she went home and had several more bouts of hematemesis and started feeling weak. She called her GI doctor who said to come to the emergency department, and continued to have spells of vomiting blood. At this time general surgery was consulted, gastroenterology was consulted, and cardiology was consulted regarding anticoagulation. She also received blood while she was here, 3 packed red blood cells total. The day after admission she underwent an EGD by Dr. Jones and had found two nonbleeding esophageal ulcers and postpolypectomy gastric ulcer treated with epinephrine and Endoclip. The patient was started back on a heparin drip. Hemoglobin and hematocrit was trended. She was on IV Protonix. Cardiology saw her and recommended to start back on Coumadin once no more bleeding. General surgery was consulted for the gastric cancer. They ordered a CT scan. They kept Dr. Hall informed, and heparin drip was held prior to surgery. On the had diagnostic laparoscopy with biopsy of liver x2, open subtotal gastrectomy with Elizabeth-en-Y gastrojejunostomy and insertion of feeding Witzel-type jejunostomy. That was performed by Dr. Tobi Rockwell, who also had Dr. Purvis and Dr. Denis that assisted. There were no complications. There was biopsy performed and the pathology report on that, the liver biopsies x2 were negative for metastatic carcinoma. The stomach gastrectomy part was adenocarcinoma, [id number] differentiated with possible neuroendocrine differentiation. Final diagnosis pending IHC strain. Multiple lymph nodes negative for metastatic carcinoma. Postoperatively the heparin drip was resumed. A central venous catheter was also placed on the same day with surgery. She did have some atrial fibrillation with RVR on one of the EKGs but eventually converted to a ventricularly paced rhythm. Postoperatively she was changed from saline to Clinimix and lipids for nutritional balance. Physical therapy was ordered to help with activity and ambulation. Postoperatively goal was to get the NG tube out, Palmer catheter out, and arterial line. Initially they were only flushing the J-tube. Imaging was felt to be more edema than pneumonia and leukocytosis only reactive to surgery. She had thrombocytopenia that was stable, an INR that was elevated and it was secondary likely due to liver failure per Dr. Hall, so she was treated with FFP and vitamin K if needed but it does not look like she had received any. She was extubated and slowly weaned on the oxygen requirements. On questioning the pulmonary edema, she had a limited view echocardiogram and the ejection fraction was normal at 50% to 55%. There was mild LVH. She was initiated on IV amiodarone by Cardiology due to resuming of the atrial fibrillation due to being n.p.o. She did have a low blood pressure with it but eventually stabilized out. Her oral medications, Coreg and dig, were held due to being n.p.o. She stayed on a heparin drip for her mitral valve. The bleeding eventually slowed down and stopped. She had the surgery on the and her next bowel movement, her very first bowel movement since then was on the . She had another one on the but none documented since then. She had to get some blood post-op. She got Lasix for her pulmonary edema and was initiated on trophic tube feedings on the . I believe she had some confusion that kind of got started around the but that improved. On the they started her on a clear liquid diet and the tube feeds kept at trophic level feedings. She was still continued on the Clinimix. On the her chest x-ray looked better. The tube feeds were turned off on the and she was advanced to a full-liquid diet. Some of the home medications were added. She was starting to be up and walking with physical therapy. She tolerated her full-liquid diet. She was doing well, sitting up in the chair, and was transferred to the floor on the . She was much improved. Coumadin was added back, also her Coreg and digoxin, and was transitioned off the amiodarone. She was increased to a GI soft diet by the , which is today. She will be transferred to [facility]. DISCHARGE VITAL SIGNS: Temperature 98.1, heart rate 80, respiratory rate 20, blood pressure 118/53, O2 saturation 100% on room air. DISCHARGE LABORATORY DATA: White blood cell count 8000, hemoglobin 11, hematocrit 36, platelet count 250,000. Sodium 136, potassium 5.0, BUN 31, creatinine 0.9, glucose 116, calcium 9.1. PERTINENT IMAGING: On the when she was admitted she had a chest, abdomen, and pelvis CT. Impression was mucosal thickening in the distal esophagus and gastric fundus, bilateral pleural effusions, nonspecific pulmonary opacities which are likely secondary to pneumonia, no definite evidence of metastatic disease. On the she had a chest x-ray which showed correct position of the central line. Essentially she had chest x-rays daily that would improve or worsening with pulmonary edema, which was also always treated with Lasix. She had a limited echocardiogram that was performed on the and showed an EF of 50% to 55%, there was mild LVH, otherwise no other abnormalities. EKG on admission showed atrial fibrillation with RVR, rate of 135 and the one on the showed a ventricularly paced rhythm with rate control. PATHOLOGY: Liver biopsies were negative for metastatic carcinoma. The stomach gastrectomy biopsy portion showed adenocarcinoma, [id number] differentiated, with possible neuroendocrine differentiation, and multiple lymph nodes were negative for metastatic carcinoma. DISCHARGE MEDICATIONS: 1. Simvastatin 20 mg p.o. nightly. 2. Coreg 6.25 mg p.o. twice daily. 3. Coumadin 5 mg p.o. daily. 4. Metformin 500 mg p.o. twice daily. 5. Digoxin 125 mcg p.o. daily. 6. Lasix 20 mg p.o. daily. 7. Lisinopril 10 mg p.o. daily. 8. Spironolactone 25 mg p.o. daily. 9. Synthroid 100 mcg p.o. daily. 10.Lovenox 60 mg subcutaneously every 12 hours. 11.[place] 7.5 one tablet p.o. every 4 hours p.r.n. DISCHARGE DIET: Mechanical soft with supplements including LiquaCel daily and Glucerna with meals. DISCHARGE ACTIVITY: As tolerated and with physical therapy. DISCHARGE FOLLOW-UP: Dr. Aguilar, Dr. Rockwell, Dr. Hall, and probably Dr. Jones or Dr. Zeng or Dr. Bull. She will need to follow up with Dr. Polo Lobo Jr. DISCHARGE INSTRUCTIONS: 1. Flush J-tube with 25 mL of sterile watery every 6 hours and cap in between. 2. Remove meliza from incision on 04/27/2019. 3. [address] meliza with Steri-Strips on 04/27/2019. 4. Encourage five to six small meals or snacks daily. 5. Follow gastrectomy diet, mechanical soft diet, small frequent meals with Glucerna and LiquaCel to supplement p.o. intake. Estimated nutritional needs are 1520 to 1652 kilocalories per day or 23 to 25 kilocalories/kg and 99 to 119 g of protein or 1.5 to 1.8 g/kg. 6. Please take medications as prescribed. 7. Follow up with your physicians as ordered. [facility] Dictated by AUDREY Cooper for Darrin Pierson MD Addendum: Patient seen and examined by myself. Agree with AUDREY note. It reflects my assessment and plan. Patient is being discharged from hospital in stable condition. Will be seen by Surgery after discharge from rehab facility. cc: AUDREY Cooper MD [facility]
[2019-04-22] MEDS: ZOFRAN IV PRN (12:14)
--- NOTE | 2019-04-22 15:24 | GENERAL SURGERY PROGRESS NOTE ---
DATE: 04/22/2019 SUBJECTIVE: The patient is doing well. She feels a little tired, but overall is doing okay. She is tolerating small amounts of her diet each day. She likes drinking the Glucerna and LiquaCel. She is ambulating. OBJECTIVE: Vital signs: She is afebrile. Vital signs are stable. General: She is awake, alert, oriented x3. No acute distress. Cardiovascular: Regular rate and rhythm. Respiratory: No work of breathing. Gastrointestinal: Soft, nondistended. Minimally tender. Incision is clean, dry, and intact. J-tube is intact. LABORATORY DATA: CBC and metabolic profile reviewed today and unremarkable. INR is 1.3. ASSESSMENT AND PLAN: A 68-year-old female, postoperative day 9 subtotal gastrectomy for adenocarcinoma. She is making good progress. The plan is to send her to rehab today. She will continue to attempt to eat 5 to 6 small meals/snacks daily and will follow up with me in a few weeks after her rehab stay. Instructions were given to her as well as Dr. Chiu. cc: Tobi Rockwell MD
--- NOTE | 2019-04-22 16:27 | HEMO/ONC PROGRESS NOTE ---
DATE: 04/22/2019 SUBJECTIVE: The patient is sitting up in a bedside chair, eating breakfast. States she is feeling much better than she did yesterday. She states she has some nausea this morning, but it is tolerable. OBJECTIVE: Vital Signs: Temperature 98.1 degrees, pulse rate 88, respiratory rate 20, blood pressure 118/53 with O2 saturation 100% on room air. 0 out of 10 pain. General: Sitting in chair, appears somewhat thin and pale. No acute distress. Respiratory: Bilateral breath sounds diminished. Not using any accessory muscles. Cardiovascular: S1, S2 noted. Regular rate and rhythm. Abdomen: Soft. Diffuse tenderness with light palpation. Midline surgical meliza were clean and healing well. J-tube noted. No rebound or guarding. Neurologic: Alert and oriented x3. No focal deficits noted. LABORATORY DATA: WBCs 8.08, hemoglobin 11.4, hematocrit 36.6, platelet count 250,000. Creatinine 0.9. ASSESSMENT AND PLAN: 1. Gastric adenocarcinoma. This is day 8 status post partial gastrectomy per Dr. Rockwell. J-tube in place. Dr. Rockwell is following the patient. She is tolerating a mechanical soft diet well and continues to clinically improve. We will continue to monitor and follow up in the outpatient setting. 2. Valvular heart disease with mild aortic stenosis and mild aortic regurgitation. She is to continue on Lovenox and warfarin per Cardiology orders. 3. Postoperative atrial fibrillation. Continue recommendations per Cardiology. 4. Anemia. Hemoglobin and hematocrit continue to improve. We will continue to monitor outpatient. 5. Disposition. The patient continues to improve well. Physical therapy is working with the patient and it appears a rehab facility will be her next step. Dictated by AUDREY Luu for Eddie Hall MD Patient seen and examined. As above. Preliminary pathology reveals no involvement of lymph nodes. Final pathology is pending. Discussed this with the patient and family. She is slowly making good progress. Continue current management. Eddie Hall M.D. cc: Eddie Hall MD [facility]
== END 2019-04-22 14:15 | DRG 826 ==
LOC: SUPCPDRO → ED 16:11 → ICU 21:23 → SUATTDRO 21:23 → 3S 04-20 14:31
PROVIDERS: ATTEND Internal Medicine
CPT/HCPCS: 36430; 71010; 71045; 71270; 74178; 80048; 80053; 81001; 82550; 82805; 82948; 83735; 84100; 84134; 85014; 85018; 85025; 85027; 85610; 85730; 86850; 86870; 86900; 86901; 86905; 86920; 86922; 88307; 88309; 88312; 88313; 88331; 88341; 88342; 88343; 88360; 93005; 93010; 93306; 93308; 94761; 94799; 96365; 96366; 96375; 97110; 97116; 97162; 97530; 99285; A9270; C8924; C9113; C9290; G0461; G0462; J0131; J0282; J0330; J1100; J1160; J1170; J1335; J1644; J1650; J1940; J2370; J2405; J2765; J3010; J3480; J7030; J7040; J7050; J7060; J7120; P9016; Q9956; Q9967; S0020; S0164; XXXXX

== ENCOUNTER 2019-04-23 10:19 | Inpatient (IN) ==
[2019-04-23] MEDS ORDERED: CARDIZEM IV ONE (10:44)
[2019-04-23] MEDS ORDERED: NS 1,000 ML IV ONE (10:44)
[2019-04-23 10:51] LABS: BASO# 0.03 X1000 (0.0-0.2); BASO% 0.3 % (0.0-0.8); EOS# 0.07 X1000 (0.0-0.7); EOS% 0.6 % (0.0-10.0); HEMATOCRIT 31.9 % (37.0-47.0); HEMOGLOBIN 10.1 g/dL (12.0-16.0); IMM GRAN# 0.16 X1000 (0.0-0.04); IMM GRAN% 1.5 % (0.0-0.5); LYMPH# 0.67 X1000 (1.2-3.4); LYMPH% 6.2 % (20.5-51.1); MCH 28.1 PG (27-31); MCHC 31.7 g/dL (33-37); MCV 88.9 FL (81-99); MONO# 0.77 X1000 (0.11-0.59); MONO% 7.1 % (1.7-9.3); MPV 10.8 FL (7.4-10.4); NEUT# 9.12 X1000 (1.4-6.5); NEUT% 84.3 % (42.2-75.2); PLT 283 X1000 (130-400); RBC 3.59 XMIL (4.2-5.4); RDW 15.6 % (11.5-14.5); WBC 10.82 X1000 (4.8-10.8)
[2019-04-23] MEDS: NS 1,000 ML IV SCH ×2 (10:51→19:06)
[2019-04-23 11:01] LABS: INR 1.66; PROTIME 20.8 Seconds (11.0-16.0)
[2019-04-23 11:02] LABS: PTT 43.3 Seconds (22.3-41.8)
[2019-04-23 11:15] LABS: ALB/GLOB RATIO 1.3; ALBUMIN 3.5 g/dL (3.5-5.0); CALCIUM 8.7 mg/dL (8.8-10.2); POTASSIUM 5.3 mmol/L (3.5-5.1); TOTAL BILIRUBIN 0.36 mg/dL (0.20-1.00); TOTAL PROTEIN 6.1 g/dL (6.3-8.3)
[2019-04-23] MEDS ORDERED: DILAUDID IV ONE (11:43)
[2019-04-23] MEDS ORDERED: ZOFRAN IV ONE (11:43)
[2019-04-23] MEDS ORDERED: NORCO-7.5 PO PRN (13:37)
--- NOTE | 2019-04-23 14:32 | Diag Imaging Result Doc PS360 ---
EXAM: FLAT/UPRIGHT ABD/1 VIEW CHEST HISTORY: sob/gib TECHNIQUE: Flat and upright with chest Chest, three views COMPARISON: 04/19/2019 FINDINGS: The lungs are well expanded. A heart valve has been replaced and there is a left-sided pacemaker. Decreased pulmonary edema. No pleural effusions identified on the current study. No free air beneath the diaphragm. There are multiple midline skin meliza. A surgical drain is in the left lower quadrant. Minimal air distended loops of small bowel in the lower left abdomen. No organomegaly. Mild scoliosis with degenerative spine changes. IMPRESSION: Mild ileus Electronically signed by Enrique Bautista 04/23/2019 2:29 PM
[2019-04-23] MEDS ORDERED: TYLENOL PO PRN (14:58)
[2019-04-23] MEDS ORDERED: ZOFRAN IV PRN (14:58)
[2019-04-23] MEDS: HUMULIN R SUBQ SCH ×2 (16:35→21:43)
[2019-04-23 17:32] LABS: HEMATOCRIT 29.4 % (37.0-47.0); HEMOGLOBIN 9.1 g/dL (12.0-16.0)
[2019-04-23 18:08] LABS: UR CREAT RANDOM 24.6 mg/dL (11-20)
[2019-04-23 19:21] LABS: URINE SOURCE CLEAN CATCH
[2019-04-23 19:27] LABS: BILIRUBIN URINE NEGATIVE (NEGATIVE); BLOOD URINE NEGATIVE (NEGATIVE); COLOR YELLOW; GLUCOSE URINE NEGATIVE (NEGATIVE); KETONE URINE NEGATIVE (NEGATIVE); LEUKOCYTES URINE NEGATIVE (NEGATIVE); NITRITE URINE NEGATIVE (NEGATIVE); PROTEIN URINE NEGATIVE (NEGATIVE); SP GRAVITY URINE 1.004; TURBIDITY URINE CLEAR (CLEAR); UROBILINOGEN URINE NORMAL (NORMAL)
[2019-04-23 19:29] LABS: UR EPITHELIAL CELLS <10 /HPF (<10); URINE BACTERIA NEGATIVE /HPF; URINE RBC <10 /HPF (<10); URINE WBC <10 /HPF (<10)
--- NOTE | 2019-04-23 20:08 | HISTORY AND PHYSICAL ---
PRIMARY CARE PROVIDER: Dr. Alessio Corona. PRIMARY ONCOLOGIST: Dr. Eddie Hall. CHIEF COMPLAINT: Bright red blood in the stool. HISTORY OF PRESENT ILLNESS: Ms. Valerie Vallejo is a 68-year-old female who was most recently admitted from 04/11/2019 to 04/22/2019, discharged yesterday, and during that time was diagnosed with upper gastrointestinal bleeding and was found to have a gastric adenocarcinoma, and underwent a partial gastrectomy by Dr. Rockwell. Complications included that she has a mitral valve that was replaced with atrial fibrillation and requires anticoagulation, so she was discharged with Lovenox and Coumadin. She was on heparin while she was here. She states that since she left yesterday, she was eating well and had a bowel movement last night that was normal in color, but she had to strain to have it, and then this morning had 4-5 bright red bloody stools in the toilet with associated nausea and shortness of breath. No dizziness or lightheadedness. This was at [facility], for which she was transferred from there to here. Since she has been here, she does have some atrial fibrillation with RVR, but it is intermittent. It will drop down to the 80s, and it will jump back up to the 160s. It is in and out. Will hold her anticoagulation for now. Will consult Cardiology for further recommendations on atrial fibrillation, and will consult Dr. Zeng for her GI bleeding. Will consult Dr. Hall for the cancer and Dr. Rockwell who did the surgery. Imaging shows that she has an ileus. Her hemoglobin and hematocrit are not too abnormal compared to yesterday, but we will go ahead and get her admitted and further work her up. Will do a clear liquid diet for now, and n.p.o. after midnight in case they decide they need to do something. PAST MEDICAL HISTORY: 1. Newly diagnosed gastric adenocarcinoma status partial gastrectomy by Dr. Tobi Rockwell. 2. Atrial fibrillation, chronic, on Lovenox and Coumadin. 3. Mitral valve replacement with, again, Coumadin. 4. Diabetes mellitus type 2. 5. Hypothyroidism. 6. Anemia, most recently acute blood loss anemia. 7. Pulmonary edema. 8. Protein calorie malnutrition. 9. History of CVA. 10.Hypertension. 11.Hyperlipidemia. 12.History of GI bleed. PAST SURGICAL HISTORY: 1. On 04/12/2019, performed by Dr. Jones, she had an upper endoscopy, and received epinephrine and an endo clip at that time due to a gastric ulcer. 2. Then on 04/14/2019, Dr. Rockwell did 2 liver biopsies, an open subtotal gastrectomy with Elizabeth-en-Y gastrojejunostomy, and insertion of feeding Witzel type jejunostomy. 3. Permanent pacemaker/defibrillator. 4. Mitral valve replacement, mechanical. 5. Hysterectomy. 6. Cataract surgery. SOCIAL HISTORY: Denies tobacco, alcohol or illicit drug use. [facility]. FAMILY HISTORY: Positive for coronary artery disease in father. ALLERGIES: No known drug allergies. HOME MEDICATIONS: 1. Simvastatin 20 mg p.o. nightly. 2. Coumadin 5 mg p.o. nightly. 3. Metformin 500 mg p.o. twice daily. 4. Digoxin 125 mcg p.o. daily. 5. Lasix 20 mg p.o. daily. 6. Lisinopril 10 mg p.o. daily. 7. Spironolactone 25 mg p.o. daily. 8. Synthroid 100 mcg p.o. daily. 9. Vitamin B12 1000 mcg p.o. daily. 10.Coreg 6.25 mg p.o. twice daily 11.Lovenox 60 mg subcutaneously every 23 hours as a bridge therapy for the Coumadin. 12.[place] 7.5 1 tab p.o. every 4 hours p.r.n. REVIEW OF SYSTEMS: A 14-point review of systems is completed, and all are negative except for those mentioned above in the HPI. She denies any abdominal cramping or any other symptoms. PHYSICAL EXAMINATION: VITAL SIGNS: Temperature is not recorded. Heart rate is 107, respiratory rate 22, blood pressure 114/58, O2 saturation 99% on room air. GENERAL: Ms. Valerie Vallejo is a 68-year-old female. She is in no acute distress. She is able to answer questions appropriately. HEENT: Atraumatic, normocephalic. Pupils equal, round, and reactive to light. Extraocular movements intact. Mucous membranes are dry. NECK: Trachea midline. CARDIOVASCULAR: Irregularly irregular, tachycardic rate/rhythm. No rubs, gallops, or murmurs. No lower extremity edema, +2 dorsalis and radial pulses. Negative JVD or carotid bruits. PULMONARY: Clear to auscultate. Bilateral breath sounds. No accessory muscle use or work of breathing noted. GI: Soft, nontender, nondistended. Positive bowel sounds x4. Incision with meliza, dry and intact. No signs of infection. Tender around the incision area. EXTREMITIES: Moves all extremities equally. Decreased range of motion, 4/5 strength equally. NEUROLOGIC: A O x3. Follows commands. Sensory is intact. SKIN: Warm, dry and intact. Midline upper abdominal incision, dry and intact with meliza. Skin is pale. LABORATORY DATA: White blood cells 10,000, hemoglobin 10, hematocrit 31, platelet count 283. INR is 1.66. PTT is 43.3. Sodium is 137, potassium 5.3, BUN 41, creatinine 1.0, glucose 121. Calcium 8.7, magnesium 2.5, bilirubin 0.36. AST 14, ALT 16. Troponin less than 0.01. Albumin is 3.5. Serum lactate is 1.3. PERTINENT IMAGING: Lungs well expanded. Heart valve replaced. Left-sided pacemaker. Decreased pulmonary edema. No effusions. No free air in the abdomen. Surgical drain in the left lower quadrant. Mild ileus. Waiting for EKG. ASSESSMENT/PLAN: 1. Gastrointestinal bleed, possible lower gastrointestinal blood, as she is calling it bright red blood. She filled up the toilet about 4-5 times. Will start her on some oral Protonix. We got an x-ray which shows ileus. She is a little nauseated but no throwing up. Her stomach is soft. She had a normal-colored bowel movement last night but did have to strain to have it. Denies any cramping. Will do serial hemoglobin/hematocrits. Current her hemoglobin and hematocrit are pretty much stable from yesterday. Will consult Dr. Zeng. Will also consult Dr. Rockwell, given the recent partial gastrectomy. Will give IV fluid hydration. 2. Newly diagnosed gastric adenocarcinoma, now status post partial gastrectomy by Dr. Rockwell. Will consult Dr. Hall as well to follow along with that. 3. Atrial fibrillation with rapid ventricular response. She got a 1-time dose of IV Cardizem, which helped slow her heart rate down. She still kind of goes up and down with it. Will continue her Coreg and her Digoxin. 4. Mitral valve replacement, mechanical valve. When she left yesterday she was on Coumadin and Lovenox bridge. She was on heparin while she was here over the last few days. Dr. Martinez with Cardiology was consulted to help assist with her cardiac medications and anticoagulation as well. 5. Diabetes mellitus type 2. Will do pattern blood glucoses and sliding-scale insulin. 6. Hypothyroidism. Continue Synthroid. 7. Protein calorie malnutrition. She has to be on at least a mechanical soft diet. She was getting LiquiCele and Glucerna shakes at rehab. 8. Hypertension. She is actually stable with her blood pressure. 9. Hyperlipidemia. Continue statin. 10.History of cerebrovascular accident. 11.Deep venous thrombosis prophylaxis. Will do sequential compression devices until we can find out what anticoagulation is going to be allowed. Dictated by AUDREY Cooper for Darrin Pierson MD Addendum: Patient seen and examined by myself. Agree with AUDREY. It reflects my assessment and plan. Patient is being admitted to hospital for GI bleeding, in this case melena. She has been discharged yesterday from hospital because of recent gastrectomy and she was on Lovenox and Coumadin for mechanical mitral valve replacement. Also she has an episode of atrial fib in the ER. Will consult General Surgery, GI and Cardiology. Will follow recommendations. cc: AUDREY Cooper MD [facility]
[2019-04-23] MEDS: COREG PO SCH (21:37)
[2019-04-23] MEDS: ZOCOR PO SCH (21:37)
[2019-04-23 23:26] LABS: HEMATOCRIT 28.9 % (37.0-47.0); HEMOGLOBIN 8.7 g/dL (12.0-16.0)
[2019-04-24] MEDS: NS 1,000 ML IV SCH ×3 (02:21→20:17)
[2019-04-24 06:06] LABS: BASO# 0.03 X1000 (0.0-0.2); BASO% 0.5 % (0.0-0.8); EOS# 0.13 X1000 (0.0-0.7); EOS% 2.1 % (0.0-10.0); HEMATOCRIT 26.8 % (37.0-47.0); HEMOGLOBIN 8.1 g/dL (12.0-16.0); IMM GRAN# 0.14 X1000 (0.0-0.04); IMM GRAN% 2.2 % (0.0-0.5); LYMPH# 1.03 X1000 (1.2-3.4); LYMPH% 16.5 % (20.5-51.1); MCH 27.8 PG (27-31); MCHC 30.2 g/dL (33-37); MCV 92.1 FL (81-99); MONO% 9.6 % (1.7-9.3); MPV 10.9 FL (7.4-10.4); NEUT# 4.33 X1000 (1.4-6.5); NEUT% 69.1 % (42.2-75.2); PLT 265 X1000 (130-400); RBC 2.91 XMIL (4.2-5.4); RDW 16.1 % (11.5-14.5); WBC 6.26 X1000 (4.8-10.8)
[2019-04-24] MEDS: SYNTHROID PO SCH (06:15)
[2019-04-24] MEDS: HUMULIN R SUBQ SCH ×4 (06:18→20:35)
[2019-04-24 06:48] LABS: AGAP 7; ALB/GLOB RATIO 1.4; ALKALINE PHOSPHATASE 90 U/L (32-104); BUN 21 mg/dL (8-22); CALCIUM 8.2 mg/dL (8.8-10.2); CHLORIDE 112 mmol/L (98-107); COSMO 285; CREATININE 0.8 mg/dL (0.5-0.9); ESTIMATED GFR > 60; GLUCOSE 115 mg/dL (70-104); GOT 14 U/L (10-30); GPT 11 U/L (10-36); INR 1.85; MAGNESIUM 2.5 mg/dL (1.5-2.7); POTASSIUM 4.6 mmol/L (3.5-5.1); PROTIME 22.7 Seconds (11.0-16.0); PTT 40.8 Seconds (22.3-41.8); SODIUM 141 mmol/L (136-145); TCO2 22 mmol/L (25-35); TOTAL PROTEIN 5.1 g/dL (6.3-8.3)
[2019-04-24] MEDS: VITAMIN B-12 PO SCH (09:12)
[2019-04-24] MEDS: LANOXIN PO SCH (09:12)
[2019-04-24] MEDS: COREG PO SCH ×2 (09:12→20:17)
--- NOTE | 2019-04-24 10:29 | Diag Imaging Result Doc PS360 ---
EXAM: ABDOMEN FLAT/UPRIGHT HISTORY: evaluate ileus TECHNIQUE: Flat and upright, two views COMPARISON: 04/23/2019 FINDINGS: There are midline skin meliza and a drain in the left lower quadrant. There continue to be mild air distended loops of bowel in the left lower quadrant. There is air and stool in the proximal and distal colon. No organomegaly. Several pelvic phleboliths. IMPRESSION: Findings likely represent a mild ileus. Electronically signed by Enrique Bautista 04/24/2019 10:27 AM
[2019-04-24 11:17] LABS: HEMATOCRIT 29.1 % (37.0-47.0); HEMOGLOBIN 8.8 g/dL (12.0-16.0)
--- NOTE | 2019-04-24 11:33 | PROGRESS NOTE ---
DATE: 04/24/2019 SUBJECTIVE: Patient reports no more episodes of melena. Denies any dizziness, nausea, vomiting. OBJECTIVE: Vitals: Temperature 98.0, heart rate 84, respiratory rate 16, blood pressure 133/50, O2 saturation 100% on room air. On general examination, this is a chronically ill-appearing, 68- year-old female lying in bed, in no acute distress. HEENT: Head is normocephalic, atraumatic. Neck: No JVD noted. No carotid bruits. No lymphadenopathy. No thyromegaly. Cardiovascular: S1, S2 heard. No murmurs, gallops, or rubs. Regular rate and rhythm. Respiratory: Clear bilaterally to auscultation. No work of breathing or using accessory muscles. Abdomen: Soft, nondistended. Nontender to palpation. The patient has a midline incision with meliza, dry and intact. No signs of infection. Mild tenderness around the incision area. Extremities: No clubbing, cyanosis, or edema. Peripheral pulses present in both legs. Neurological: The patient alert, oriented x3. Moves 4 extremities. LABORATORY DATA: White cell count 6.26, hemoglobin 8.1, hematocrit 26.8, platelets 265,000 with BMP that is remarkable for creatinine 0.8, potassium 4.6. ASSESSMENT AND PLAN: 1. Gastrointestinal bleeding. The patient was recently discharged from the hospital 1 day ago for GI bleeding. He underwent partial gastrectomy for gastric cancer. The patient was brought to the emergency department because of bright red blood noted in the stools. Hemoglobin has dropped from 10.1 to 8.1. At this point, we have called Gastroenterology and also General Surgery. Apparently there are plans to do upper endoscopy, but there are no orders in the computer yet. In any case, we will prefer to continue this patient on n.p.o. She is not complaining of any abdominal pain. No more episodes of bleeding. We will continue to check BMP daily. We will see what Dr. Zeng from Gastroenterology and Dr. Rockwell from General Surgery have to say. We will continue with IV fluids as well. 2. Newly diagnosed gastric adenocarcinoma status post partial gastrectomy. Aware. Dr. Hall has been consulted. 3. Atrial fibrillation with rapid ventricular response. Her heart rate is much better controlled. She had melissa a mechanical mitral valve replacement done in 2011, and she is on Coumadin. Of course, at this point, we have held any anticoagulation. We have consulted Cardiology to have further recommendations about her chronic heart conditions. 4. Diabetes mellitus type 2. We will continue with sliding scale insulin and Accu-Chek before meals and also at bedtime. 5. Hypothyroidism. We will continue home doses of Synthroid. 6. Protein-calorie malnutrition. We will continue with Liquicell and Glucerna. 7. Hypertension. Blood pressure is stable. We will continue to monitor. 8. Hyperlipidemia. We will continue with statin. 9. Deep vein thrombosis prophylaxis. On SCDs. DISPOSITION: We will continue to monitor this patient closely. We will follow recommendations from Gastroenterology and General Surgery. cc: Darrin Pierson MD
--- NOTE | 2019-04-24 14:45 | CARDIOLOGY CONSULTATION ---
DATE: 04/24/2019 CHIEF COMPLAINT: Weakness, blood in the stools. REASON FOR CONSULTATION: "Atrial fibrillation with rapid response". HISTORY: Ms. Vallejo is a 68-year-old, female who presented to the hospital for admission just recently, on 04/11/2019, following an upper endoscopy and biopsy performed by a junior accountant that showed stomach cancer. The patient was admitted and she received emergency endoscopy the following day with cauterization. The pathology revealed that she had cancer and on April 13, she underwent a gastrectomy by Dr. Rockwell and the surgical team, Dr. Purvis and Dr. Denis. They did a diagnostic laparoscopy with biopsy of the liver x2, open subtotal gastrectomy with a Elizabeth-en-Y gastrojejunostomy, insertion of a feeding Witzel-type jejunostomy on April 13. Subsequently, the patient had recovered in the hospital and she was sent home on April 22, which was Thursday, and made it through [facility] in [place] at about 3 p.m. She had a relatively good night. However, she had to strain to have a bowel movement in the morning of April 23, which is yesterday, Thursday, and subsequently, she had several bloody bowel movements witnessed by the including coffee-grounds type of stuff. Because of suspected active GI bleeding, the patient was immediately sent back to this hospital. Upon presentation to the ER, they noted that she was somewhat tachycardic which is obviously expected if the person is having significant GI bleeding. The first heart rate was 128 beats per minute. Subsequently, heart rate has dropped to a more normal range. Her initial hemoglobin was 10.1 and then it had dropped to 8.1. The patient is not having any pain in the abdomen. She does have an extensive incision in the abdomen which appears to be healing well. She denies having chest pain or dyspnea or syncope. PAST MEDICAL HISTORY: Positive for permanent atrial fibrillation. This has been going on for more than 10 years. She had cardioversion before. Subsequently, she was diagnosed with mitral valve disease and in June of 2012, she underwent a [employer] mechanical mitral valve replacement by Dr. Murillo for mitral stenosis. Shortly thereafter, on 07/22/2012, she underwent implantation of an AICD, [employer] 40Q Unify by Dr. Little. The patient has basically done very well since then. Last echocardiogram that was read recently by Dr. Aguilar indicated that her ejection fraction is in the order of 50-55% with no evidence of valvular dysfunction with normal valvular function. This was done on April 14. Aortic valve is somewhat calcified. It opens reasonably well. The patient has a history of hyperlipidemia, hypothyroidism, questionable prior stroke, anemia, and diabetes. SURGICAL HISTORY: In addition to the valve replacement and the pacemaker, she has had hysterectomy and cataract extraction. HOME MEDICATIONS: At the time of this admission are as follows: She is supposed to be on carvedilol 6.25 twice a day, vitamin B12 1000 mcg daily, digoxin 0.125 mg daily, Lovenox 60 every 12 hours, furosemide 20 mg daily, warfarin 5 mg daily, spironolactone 25 mg daily, simvastatin 10 mg at bedtime, metformin 500 mg twice a day, lisinopril 10 mg daily, levothyroxine 100 mcg daily. She is also on furosemide 20 daily and hydrocodone. REVIEW OF SYSTEMS: Other than the general debility from the long hospital stay is noncontributory. She has really no cardiovascular complaints at this time. PHYSICAL EXAMINATION: Vital Signs: Blood pressure at this time is 133/58, temperature 98.8 degrees, pulse 74, respirations 16. She is awake, alert, oriented. Appears to be slightly pale. HEENT: Unremarkable. Chest: Clear to auscultation and percussion. Hearts sounds are regular, rhythmic. I do not hear any definite gallop or murmur. Her abdomen shows an incision that is still displaying the meliza there. The abdomen is not distended. Extremities show good pulses. No peripheral edema. Neurological Examination: Nonfocal. Moves 4 extremities. LABORATORY DATA: Blood work this morning shows a sodium of 141, potassium 4.3, BUN 21, creatinine 0.8, carbon dioxide 22. X-ray of the abdomen shows mild ileus. IMPRESSION: 1. Patient who has permanent (chronic) atrial fibrillation, who has suffered recurrent gastrointestinal bleeding and evidently was tachycardic at the time of presentation to the emergency room yesterday. At this time, her heart rate is basically within normal range. 2. History of mitral valve replacement with mechanical valve, on long-term anticoagulation. 3. Status post pacemaker implantation, automatic implantable cardioverter defibrillator. 4. Hyperlipidemia. 5. Diabetes. 6. Status post resection of a gastric cancer with the Elizabeth-en-Y surgery performed on 04/13/2019. No evidence of metastatic lesions to the liver nor to the lymph nodes has been identified. RECOMMENDATIONS: At this point, from cardiology, I will suggest to continue beta blockers and perhaps add some calcium blockers to control the heart rate. On my part, I cannot prescribe anticoagulants given active GI bleeding. The GI bleeding needs to be evaluated by the junior accountant and by the surgical team. When they both feel that it is safe to anticoagulate the patient, then anticoagulation can be carried out with heparin first and then switch over to warfarin. At this point in time, I would not do any further intervention on this patient. Her main reason for being in the hospital again is gastrointestinal bleeding. cc: Ion Martinez MD MTDD
--- NOTE | 2019-04-24 15:03 | GENERAL SURGERY PROGRESS NOTE ---
DATE: 04/24/2019 SUBJECTIVE: The patient returned from rehabilitation yesterday, 1 day after being discharged with several episodes of bloody stool. She denies any significant abdominal pain, nausea, or vomiting. OBJECTIVE: She is afebrile. Vital signs are stable.General: She is awake and alert, oriented x3. No acute distress. Gastrointestinal: Soft and minimally tender. Incision is clean, dry, and intact. J-tube is intact. Rectal: A rectal exam was performed. She had some dried maroon stool and tarry stool in the rectal vault,, but no active bright red bleeding. No significant hemorrhoids or distal rectal mass appreciated. LABORATORY: White blood cell count 6, hemoglobin 8.1, hematocrit 26.8. Complete metabolic profile reviewed and unremarkable. INR 1.8. ASSESSMENT AND PLAN: A 68-year-old female status post gastrectomy for adenocarcinoma. She now has GI bleed. She was on Lovenox and Coumadin. These will be held temporarily. Dr. Zeng has been consulted, and she may need EGD and colonoscopy. cc: Tobi Rockwell MD
--- NOTE | 2019-04-24 15:34 | HEMO/ONC PROGRESS NOTE ---
DATE: 04/24/2019 SUBJECTIVE: She was discharged on Thursday to be admitted the very next day with complaints of GI bleeding. Please refer to our consultation note from her last visit. She recently underwent gastrectomy for a gastric adenocarcinoma. The gastric carcinoma was causing GI bleeding in the context off anticoagulation for her mechanical heart valve. After surgical resection of the colon cancer, her GI bleeding has stopped. She was restarted on anticoagulation for her mechanical heart valve and discharged in stable condition. At home, she developed dark stools x4. She was brought back to the ER and admitted for further management. Dr. Martinez is seeing the patient at the current time. She reports that Surgery has come by and awaiting on GI consultation. PHYSICAL EXAMINATION: General: Patient is in no acute distress. Vital Signs: Temperature 98 degrees, pulse 84, blood pressure 133/58. HEENT: Eyes, EOMI. PERRLA. Anicteric. Mucous membranes appear moist. Cardiac: Regular rate and rhythm. Normal S1, S2. Chest: Clear to auscultation bilaterally. Abdomen: Soft, nontender, without hepatosplenomegaly or masses. Surgical site appears good. Extremities: Without cyanosis or clubbing. Mild edema is noted. Neurological: Alert and oriented x3. No focal motor deficits. LABORATORY DATA: White count 6.3, hemoglobin 8.1, hematocrit 26, MCV 92, platelets 265. PT 22.7, PTT. 40.8, INR 1.85. BUN 21, creatinine 0.8. ASSESSMENT/PLAN: 1. Gastric adenocarcinoma: We do not have her final pathology. Preliminary pathology suggests that all her lymph nodes are negative which is a very encouraging. I will wait for final pathology and plan further management accordingly. 2. Valvular heart disease status post valve replacement: She was discharged on anticoagulation which now has been held due to acute GI bleeding. Further management of this per Cardiology. 3. Gastrointestinal bleeding in the postoperative setting on anticoagulation: Surgery has seen her. Waiting on GI evaluation. 4. Anemia: This is due to her acute illness and GI bleeding. Continue to support with blood transfusion as needed. Monitor hemoglobin and hematocrit closely. IV iron as needed. cc: Eddie Hall MD MTDD
[2019-04-24 17:13] LABS: HEMOGLOBIN 8.7 g/dL (12.0-16.0)
--- NOTE | 2019-04-24 18:46 | GASTROENTEROLOGY CONSULTATION ---
DATE: 04/24/2019 REASON FOR CONSULTATION: GI bleed. HISTORY OF PRESENT ILLNESS: 68-year-old lady who was discharged day before yesterday. Went home after subtotal gastrectomy, she is on anticoagulation for her mechanical mitral valve. Had 1 bowel movement which was dark and then after that brown stool with blood staining. She came to the hospital and admitted for further care. The hemoglobin and hematocrit are stable. PAST MEDICAL HISTORY: 1. Gastric cancer recent surgery. 2. Atrial fibrillation. 3. Mitral valve replacement. 4. Diabetes. 5. Hypothyroidism. 6. Anemia. PAST SURGICAL HISTORY: 1. Gastric surgery as above. 2. Mitral valve replacement mechanical. 3. Hysterectomy. 4. Cataract surgery. SOCIAL HISTORY: Negative. She is currently in alf getting rehab, [facility] FAMILY HISTORY: Positive for coronary artery disease. ALLERGIES: None. HOME MEDICATION: Were reviewed. REVIEW OF SYSTEMS: Otherwise negative. Denies any dizziness. PHYSICAL EXAMINATION: Vital Signs: Heart rate 100, respirations 20, blood pressure 114/58, O2 saturation 99%. HEENT: Mild conjunctival pallor. Neck: Supple. Trachea midline. Heart: Irregularly irregular. Bowel sounds present. There is a click from the artificial valve. Lungs: Clear. Abdomen: Soft, nondistended. Surgical wound is healing well. Neurological: Alert. LABORATORY DATA: Reviewed. Hemoglobin and hematocrit is about the same as when she was discharged. IMPRESSION AND PLAN: 1. Gastrointestinal bleed hemodynamically not significant, however I agree with her admission. Will watch her closely. I will not do any endoscopic intervention until will see which direction she goes. She is currently her Coumadin is held. INR is about 1 and half times her normal. 2. Recent subtotal gastrectomy. 3. Atrial fibrillation. 4. Mitral valve replacement. 5. Diabetes mellitus. 6. Hypothyroidism. Will give her clear liquids. Watch her carefully. Decide tomorrow. Will probably advance the diet. If she has a small [*] at the anastomotic site I am not sure endoscopy is beneficial however she needs observation for at least a couple of days. We will follow her with you. cc: Beth Zeng MD
[2019-04-24] MEDS: ZOCOR PO SCH (20:17)
[2019-04-24 23:15] LABS: HEMATOCRIT 27.3 % (37.0-47.0); HEMOGLOBIN 8.4 g/dL (12.0-16.0)
[2019-04-25] MEDS: NS 1,000 ML IV SCH ×2 (04:20→13:52)
[2019-04-25] MEDS: HUMULIN R SUBQ SCH ×3 (06:24→21:45)
[2019-04-25] MEDS: SYNTHROID PO SCH (06:35)
--- NOTE | 2019-04-25 07:25 | EKG Report ---
Test Performed on : 04/23/2019 11:43:33 AM Test Reason : rythm evaluation Blood Pressure : / mmHG Vent. Rate : 085 BPM Atrial Rate : 080 BPM P-R Int : 000 ms QRS Dur : 158 ms QT Int : 450 ms P-R-T Axes : 000 -78 090 degrees QTc Int : 535 ms Ventricular-paced rhythm with occasional supraventricular complexes and with occasional premature eagle tricular complexes. Abnormal ECG When compared with ECG of 23-APR-2019 10:29, (Unconfirmed) premature ventricular complexes. are now present Vent. rate has decreased BY 24 BPM Unconfirmed Result
[2019-04-25 08:12] LABS: HEMATOCRIT 27.8 % (37.0-47.0); HEMOGLOBIN 8.5 g/dL (12.0-16.0); MCH 28.1 PG (27-31); MCHC 30.6 g/dL (33-37); MCV 92.1 FL (81-99); RBC 3.02 XMIL (4.2-5.4); RDW 15.8 % (11.5-14.5); WBC 6.72 X1000 (4.8-10.8)
[2019-04-25 08:21] LABS: INR 1.77; PROTIME 21.9 Seconds (11.0-16.0)
[2019-04-25 08:24] LABS: AGAP 10; BUN 12 mg/dL (8-22); CALCIUM 8.5 mg/dL (8.8-10.2); CHLORIDE 111 mmol/L (98-107); COSMO 282; CREATININE 0.7 mg/dL (0.5-0.9); ESTIMATED GFR > 60; GLUCOSE 151 mg/dL (70-104); POTASSIUM 4.2 mmol/L (3.5-5.1); SODIUM 140 mmol/L (136-145); TCO2 19 mmol/L (25-35)
[2019-04-25] MEDS: VITAMIN B-12 PO SCH (08:28)
[2019-04-25] MEDS: LANOXIN PO SCH (08:28)
[2019-04-25] MEDS: COREG PO SCH ×2 (08:28→21:51)
--- NOTE | 2019-04-25 09:56 | PROGRESS NOTE ---
DATE: 04/25/2019 SUBJECTIVE: Patient reports feeling fine. No more episodes of rectal bleeding. Not feeling dizzy. OBJECTIVE: Vital Signs: Temperature 97.6, heart rate 82, respiratory rate 18, blood pressure 135/54, O2 saturation 100% on room air. General Examination: This is a chronically ill- appearing, 68-year-old female lying in bed in no acute distress. Cardiovascular: S1, S2 heard. No murmurs, gallops, or rubs. Regular rate and rhythm. Respiratory: Clear bilaterally to auscultation. No work of breathing or using accessory muscles. Abdomen: Soft, nondistended, nontender to palpation. The patient has a midline incision with meliza dry and intact with no signs of infection. Mild tenderness around the incision area. No organomegaly noted. Extremities: No clubbing, cyanosis, or edema. Peripheral pulses present in both legs. Neurological: Patient alert and oriented x3. Moves 4 extremities. LABORATORY DATA: White cell count 6.72, hemoglobin 8.5, hematocrit 27.8, platelets 72,000 with normal BMP. Glucose 151. ASSESSMENT/PLAN: 1. Gastrointestinal bleeding. The patient has not had any more episodes of bleeding. The patient has been evaluated by GI and the plan is to monitor this patient closely. No procedures like EGD or colonoscopy at this time. Also General Surgery is following this patient. We will follow recommendations. The patient has not had any more episodes of bleeding or abdominal pain. She is on a full liquid diet. 2. Newly diagnosed gastric adenocarcinoma status post partial gastrectomy, aware. Oncology has been consulted. We will follow recommendations. 3. Atrial fibrillation with rapid ventricular response. The heart rate is under control. She had a mechanical mitral valve replacement in 2011. She has been on Coumadin but of course, we have held that medication. Cardiology has been consulted for help in management of blood thinners in this patient. We will follow recommendations. 4. Diabetes mellitus type 2. We will continue with sliding scale insulin. Accu-Chek before meals and also at bedtime. 5. Hypothyroidism. Will continue home dose of Synthroid. 6. Protein-calorie malnutrition. We will continue with LiquaCel and Glucerna. 7. Hypertension. Blood pressure is stable. We will continue to monitor. 8. Hyperlipidemia. We will continue with statin. 9. Deep vein thrombosis prophylaxis on sequential compression devices . DISPOSITION: I think at this point, we will continue to monitor this patient closely. GI and General Surgery following this patient. We will follow recommendations. cc: Darrin Pierson MD MTDNando
--- NOTE | 2019-04-25 13:17 | GENERAL SURGERY PROGRESS NOTE ---
DATE: 04/25/2019 SUBJECTIVE: Doing okay. Thought she noted some blood last night, but it was in small volume. No fevers. No tachycardia. Abdomen is soft. Incisions are intact. Hematocrit has been stable at 27. Creatinine is 0.7. ASSESSMENT AND PLAN: A 68-year-old female status post subtotal gastrectomy by Dr. Rockwell. She was readmitted with GI bleed. She is on anticoagulation for mechanical valve. We are holding this for now. We will continue to monitor closely for signs of bleeding. Resume anticoagulation when we feel it is safe. cc: Rubi Denis MD
[2019-04-25] MEDS: ZOCOR PO SCH (21:51)
[2019-04-26] MEDS: HUMULIN R SUBQ SCH ×4 (06:33→21:18)
[2019-04-26] MEDS: SYNTHROID PO SCH (06:41)
[2019-04-26 07:27] LABS: HEMATOCRIT 26.5 % (37.0-47.0); HEMOGLOBIN 8.1 g/dL (12.0-16.0); MCH 27.9 PG (27-31); MCHC 30.6 g/dL (33-37); MCV 91.4 FL (81-99); MPV 10.5 FL (7.4-10.4); RBC 2.9 XMIL (4.2-5.4); WBC 4.89 X1000 (4.8-10.8)
--- NOTE | 2019-04-26 07:33 | EKG Report ---
Test Performed on : 04/24/2019 06:10:52 AM Test Reason : afib Blood Pressure : / mmHG Vent. Rate : 084 BPM Atrial Rate : 375 BPM P-R Int : 000 ms QRS Dur : 162 ms QT Int : 440 ms P-R-T Axes : 000 -82 091 degrees QTc Int : 519 ms Ventricular-paced rhythm Abnormal ECG When compared with ECG of 23-APR-2019 17:33, (Unconfirmed) Vent. rate has increased BY 3 BPM Confirmed by Chris JEAN-BAPTISTE, Gio Ogden ([id number]) on 04/26/2019 12:41:34 PM
[2019-04-26 07:34] LABS: INR 1.46; PROTIME 18.9 Seconds (11.0-16.0)
[2019-04-26 07:44] LABS: AGAP 7; BUN 6 mg/dL (8-22); CALCIUM 7.6 mg/dL (8.8-10.2); CHLORIDE 111 mmol/L (98-107); COSMO 279; CREATININE 0.7 mg/dL (0.5-0.9); ESTIMATED GFR > 60; GLUCOSE 109 mg/dL (70-104); SODIUM 141 mmol/L (136-145); TCO2 23 mmol/L (25-35)
--- NOTE | 2019-04-26 07:44 | EKG Report ---
Test Performed on : 04/23/2019 5:33:48 PM Test Reason : rhythm evaluation Blood Pressure : / mmHG Vent. Rate : 081 BPM Atrial Rate : 081 BPM P-R Int : 280 ms QRS Dur : 158 ms QT Int : 456 ms P-R-T Axes : 000 -79 090 degrees QTc Int : 529 ms Atrial-sensed ventricular-paced rhythm with prolonged AV conduction with occasional sinus complexes Abnormal ECG When compared with ECG of 23-APR-2019 17:32, (Unconfirmed) Previous ECG has undetermined rhythm, needs review Confirmed by Chris JEAN-BAPTISTE, Gio Ogden ([id number]) on 04/26/2019 12:41:29 PM
--- NOTE | 2019-04-26 08:03 | EKG Report ---
Test Performed on : 04/23/2019 10:29:40 AM Test Reason : ED. NO EKG ORDER FOR MUSE Blood Pressure : / mmHG Vent. Rate : 109 BPM Atrial Rate : 097 BPM P-R Int : 000 ms QRS Dur : 084 ms QT Int : 366 ms P-R-T Axes : 000 048 248 degrees QTc Int : 492 ms Atrial fibrillation. with rapid ventricular response. with frequent ventricular-paced complexes Voltage criteria for left ventricular hypertrophy Posterior infarct , possibly acute Marked ST abnormality, possible inferior subendocardial injury ACUTE [place] / STEMI Abnormal ECG When compared with ECG of 14-APR-2019 06:53, Vent. rate has increased BY 25 BPM Unconfirmed Result
[2019-04-26] MEDS: COREG PO SCH ×2 (08:57→21:19)
[2019-04-26] MEDS: LANOXIN PO SCH (08:57)
[2019-04-26] MEDS: NS 1,000 ML IV SCH ×3 (08:57→17:31)
[2019-04-26] MEDS: VITAMIN B-12 PO SCH (08:57)
[2019-04-26] MEDS ORDERED: XYLOCAINE-MPF 2% ONE (11:05)
[2019-04-26] MEDS ORDERED: DIPRIVAN 1% ONE (11:06)
--- NOTE | 2019-04-26 11:55 | PROGRESS NOTE ---
DATE: 04/26/2019 SUBJECTIVE: The patient reports feeling fine. No more episodes of bleeding. Not feeling dizzy or having headache. OBJECTIVE: Vital Signs: Temperature 98.8 degrees, heart rate 84, respiratory rate 18, blood pressure 145/55, and O2 saturation 99% on room air. General: This is a chronically ill- appearing, 68-year-old female lying in bed in no acute distress. Cardiovascular: S1, S2 heard. No murmurs, gallops, or rubs. Regular rate and rhythm. Respiratory: Clear bilaterally to auscultation. No work of breathing or using accessory muscles. Abdomen: Soft. Nondistended. Nontender to palpation. The patient has some midline incision with meliza dry and intact with no signs of infection. Mild tenderness around incisional area. No organomegaly noted. Extremities: No clubbing, cyanosis, or edema. Peripheral pulses present in both legs. Neurological: Patient is alert and oriented x3. Moves all 4 extremities. LABORATORY DATA: Reviewed. ASSESSMENT AND PLAN: 1. GI bleeding since admission when hemoglobin dropped from 10.1 to 8.5. He has been stable so far. No more signs of GI bleeding. Gastroenterology has decided to do EGD and colonoscopy to find out if there are any signs of bleeding. Also, General Surgery following this patient. We will follow recommendations. 2. Newly diagnosed gastric adenocarcinoma status post partial gastrectomy. Surgery has been consulted. We will follow recommendations. 3. Atrial fibrillation. Heart rate is under control. She has also mechanical mitral valve replacement. The patient was on Coumadin in 2011. At this point, of course, because of the GI bleeding, the Coumadin and Lovenox has been held. I think we are going to do endoscopy and colonoscopy to see if this patient is bleeding or not, or what we may need to restart anticoagulation. 4. Diabetes mellitus type 2. We will continue with Accu-Chek before meals, and also at bedtime and sliding scale insulin. 5. Hypothyroidism. We will continue home dose of Synthroid. 6. Protein calorie malnutrition. We will continue with Liquacel and Glucerna. 7. Hypertension. Blood pressure is stable. We will continue to monitor. 8. Hyperlipidemia. We will continue with the statin. 9. Disposition. At this point, patient is going to the OR to have endoscopy and colonoscopy. We will see what it shows. We will continue to monitor this patient closely. We will check CBC daily to make sure the patient does not need any blood transfusions. cc: Darrin Pierson MD MTDD
[2019-04-26] MEDS: CARAFATE LIQUID PO SCH ×3 (11:57→22:56)
--- NOTE | 2019-04-26 12:15 | OPERATIVE NOTE ---
PROCEDURE DATE: 04/26/2019 PROCEDURE: Upper gastrointestinal endoscopy. PROVIDER: Quincy Jones MD. INDICATIONS: Melena, upper GI bleed, history of gastric cancer status post subtotal gastrectomy and Elizabeth-en-Y gastrojejunostomy. MEDICATIONS: Monitored anesthesia care. DESCRIPTION OF PROCEDURE: Prior to procedure, a history and physical was performed. The patient medication allergies were reviewed. The patient's tolerance to previous anesthesia was also reviewed. The risks and benefits of the procedure and sedation options and risks were discussed with the patient. All questions were answered. Informed consent was obtained. After reviewing the risks and benefits, the patient was deemed in satisfactory condition to undergo the procedure. The endoscope was passed under direct visualization. Throughout the procedure, the patient's blood pressure, pulse and oxygen saturation were monitored continuously. Endoscope was introduced through the mouth and advanced to the jejunum beyond the gastrojejunostomy anastomosis. The upper GI endoscopy was accomplished without difficulty. The patient tolerated the procedure well. COMPLICATIONS: No immediate complications. ESTIMATED BLOOD LOSS: Minimal. FINDINGS: The esophagus was normal. At the point of the GE junction. There were three notable clean-based anastomotic ulcers that were partially circumferential along the suture line. There was no active bleeding. There was visible suture material. The jejunum appeared normal. IMPRESSION: Anastomotic ulcers, which likely represents the source of gastrointestinal bleeding. RECOMMENDATIONS: Start clear liquid diet. Resume Lovenox for anticoagulation in the setting of mechanical valve. Trend hemoglobin and hematocrit. Transfuse as needed to maintain a hemoglobin between 7 and 8. Surgery following. Appreciate recommendations. Transition PPI IV to p.o. twice a daily, and start Carafate liquid 4 times a day 1 gram. We will follow with you. Please call with any questions or concerns. MTDD
--- NOTE | 2019-04-26 13:38 | HEMO/ONC PROGRESS NOTE ---
DATE: 04/26/2019 SUBJECTIVE: Patient is lying quietly on her side, flat in her bed without any distress. She states she is feeling a lot better than yesterday. Her is at bedside, and they are both in pleasant spirits. OBJECTIVE: Vital Signs: Temperature 98.8 degrees, pulse rate 84, respiratory rate 18, blood pressure 145/58, O2 saturation 96% on room air. General: She is in 0/10 pain. Respiratory: Lungs clear to auscultation. Cardiac: Normal S1 and S2. Abdomen: Guarded, due to recent surgery. Neurologic: Alert and orienter x 3. No focal motor deficits. DIAGNOSTIC STUDIES: WBC 4.9, hemoglobin 8.1, hematocrit 26.5, platelet count 289,000. Creatinine 0.7, calcium 7.6. Abdominal flat and upright x-ray from the shows findings likely represent a mild ileus. ASSESSMENT: 1. Gastric adenocarcinoma. 2. Valvular heart disease status post valve replacement with mechanical valve. 3. Gastrointestinal bleeding in the postoperative setting on anticoagulation. 4. Anemia. PLAN: We do not have her final pathology yet, although the preliminary pathology suggests that all her lymph nodes are negative which is very encouraging. We will wait on the final pathology to plan further management accordingly in the outpatient setting of the clinic. The patient was discharged on anticoagulation which is now being held due to her acute GI bleeding. She had an upper gastrointestinal endoscopy today, which revealed an anastomotic ulcers, which they believe is the source of the gastrointestinal bleeding. Resume Lovenox per GI, transfuse as needed. We will continue to monitor her hemoglobin and hematocrit closely. Plan for a dose of Injectafer. Dictated by AUDREY Luu for Eddie Hall MD Patient seen and examined. As above. Endoscopy results noted. Small ulcers noted near the anastomosis. Resume anticoagulation per GI. From our standpoint proceed with a dose of IV iron. We will continue to follow with you. Eddie Hall M.D. MTDD
--- NOTE | 2019-04-26 14:24 | Diag Imaging Result Doc PS360 ---
EXAM: CHEST-PORTABLE 04/26/2019 HISTORY: REHAB PLACEMENT TECHNIQUE: AP portable at 1416 COMMENT: There is COPD. The heart size is slightly enlarged. Compared to 04/23/2019, there has been no significant change. IMPRESSION: Stable chest. Electronically signed by Saurabh Jay 04/26/2019 2:22 PM
--- NOTE | 2019-04-26 14:25 | GENERAL SURGERY PROGRESS NOTE ---
DATE: 04/26/2019 SUBJECTIVE: The patient is doing okay today. She recently underwent EGD with findings of anastomotic ulcers, but they were not actively bleeding. OBJECTIVE: Vital Signs: She is afebrile. Vital signs are stable. General: She is awake, alert, oriented x3. No acute distress. Gastrointestinal: Soft, nontender, nondistended. Incision is clean, dry, and intact. LABORATORY: Hemoglobin 8.1, hematocrit 26.5 this morning. ASSESSMENT AND PLAN: A 68-year-old female status post recent subtotal gastrectomy, now with GI bleed probably secondary to anastomotic ulcer. We will have to restart her anticoagulation cautiously and monitor for any rebleeds. No further surgery indications and I will follow along with you. cc: Tobi Rockwell MD
[2019-04-26] MEDS: LOVENOX SUBQ SCH (16:09)
[2019-04-26] MEDS ORDERED: COUMADIN PO SCH (21:00)
[2019-04-26] MEDS: ZOCOR PO SCH (22:56)
[2019-04-26] MEDS: PROTONIX PO SCH (22:57)
[2019-04-27] MEDS: NS 1,000 ML IV SCH ×4 (01:35→19:36)
[2019-04-27] MEDS: CARAFATE LIQUID PO SCH ×4 (06:03→23:53)
[2019-04-27] MEDS: LOVENOX SUBQ SCH ×2 (06:03→17:38)
[2019-04-27] MEDS: SYNTHROID PO SCH (06:03)
[2019-04-27] MEDS: HUMULIN R SUBQ SCH ×4 (07:18→22:39)
[2019-04-27 08:03] LABS: INR 1.56; PROTIME 19.9 Seconds (11.0-16.0)
[2019-04-27 08:22] LABS: HEMATOCRIT 27.7 % (37.0-47.0); HEMOGLOBIN 8.5 g/dL (12.0-16.0); MCH 28.9 PG (27-31); MCHC 30.7 g/dL (33-37); MCV 94.2 FL (81-99); MPV 10.5 FL (7.4-10.4); RBC 2.94 XMIL (4.2-5.4); RDW 16.5 % (11.5-14.5); WBC 5.75 X1000 (4.8-10.8)
[2019-04-27] MEDS ORDERED: INJECTAFER 750 MG in NS 250 ML IV ONE (08:30)
[2019-04-27 08:32] LABS: AGAP 10; BUN 5 mg/dL (8-22); CALCIUM 7.8 mg/dL (8.8-10.2); CHLORIDE 111 mmol/L (98-107); COSMO 282; CREATININE 0.7 mg/dL (0.5-0.9); ESTIMATED GFR > 60; GLUCOSE 91 mg/dL (70-104); POTASSIUM 3.6 mmol/L (3.5-5.1); SODIUM 143 mmol/L (136-145); TCO2 22 mmol/L (25-35)
[2019-04-27] MEDS: LANOXIN PO SCH (09:29)
[2019-04-27] MEDS: COREG PO SCH ×2 (09:29→22:40)
[2019-04-27] MEDS: VITAMIN B-12 PO SCH (09:29)
[2019-04-27] MEDS: PROTONIX PO SCH ×2 (09:31→22:40)
--- NOTE | 2019-04-27 15:09 | HEMO/ONC PROGRESS NOTE ---
DATE: 04/27/2019 SUBJECTIVE: The patient is sitting upright in bed with her at bedside. She states she feels much better than yesterday. She states her appetite is starting to increase. She denies having any pain. She tells me she is going to do injections for anticoagulation for a little while, and hopes to be returning to rehab soon. OBJECTIVE: Vital Signs: Temperature 97.4 degrees, pulse rate 82, respiratory rate 21, blood pressure 137/47, O2 saturation 99% on room air. Feels 0/10 pain. General: The patient appears comfortable, in no acute distress. Respiratory: Lungs are clear to auscultation. Cardiac: Normal S1 and S2. Abdomen: Stable. Surgical site appears clean and healing well. No pain with palpation. Bowel sounds present. Neurological: Alert and oriented x3. No focal motor deficits. Extremities: No edema noted. LABORATORY: WBCs 5.75, hemoglobin 8.5, hematocrit 27.7, platelet count 322., creatinine 0.7. IMAGING: Yesterday's chest x-ray shows stable chest. ASSESSMENT: 1. Gastric adenocarcinoma. 2. Valvular heart disease, status post valvular replacement with mechanical valve. 3. Gastrointestinal bleeding in the postoperative setting on anticoagulation. 4. Anemia. PLAN: We have ordered the patient IV iron to be given today. Her bleeding has stopped. Her endoscopy from yesterday revealed an anastomotic ulcer, which was believed to be the source of the gastrointestinal bleeding due to anticoagulation. She has resumed the Lovenox injections, and they will monitor that very closely to watch for additional bleeding. We will continue to monitor her hemoglobin and hematocrit. The patient requested protein shakes which were added to her orders. Dictated by AUDREY Luu for Eddie Hall MD cc: Eddie Hall MD [facility]
--- NOTE | 2019-04-27 15:38 | PROGRESS NOTE ---
DATE: 04/27/2019 SUBJECTIVE: The patient reports feeling fine. No more episodes of bleeding. Not feeling dizzy and not having a headache. OBJECTIVE: Vital Signs: Temperature 97.4 degrees, heart rate 84, respiratory rate 23, blood pressure 135/47, and O2 saturation 99% on room air. General: This is a 68-year-old female lying in bed in no acute distress. Cardiovascular: S1, S2 heard. No murmurs, gallops, or rubs. Regular rate and rhythm. Respiratory: Clear bilaterally to auscultation. No work of breathing or using accessory muscles. Abdomen: Soft. A little bit tender to palpation around the midline incision with meliza dry and clean with no signs of infection. Mild tenderness around the incisional area. No splenomegaly noted. No organomegaly noted. Extremities: No clubbing, cyanosis, or edema. Peripheral pulses present in both legs. Neurological: Patient is alert and oriented x3. Moves 4 extremities. LABORATORY DATA: Reviewed. Hemoglobin 7.5 today. ASSESSMENT AND PLAN: 1. Gastrointestinal bleeding, that is the reason why this patient was admitted to the hospital. So far since admission, the patient's hemoglobin dropped from 10.1 to 8.5. The endoscopy performed by Dr. Jones basically revealed anastomotic ulcer which likely represents the source of GI bleeding. In any case, the hemoglobin is stable so far. We did not transfuse any blood during her whole hospitalization. General Surgery is following this patient. Do not recommend new recommendations at this point, from their standpoint. From GI standpoint, we decided to do Lovenox 1 mg/kg every 12 hours for at least 30 days and not restart Coumadin until that time. In that case, we will allow her to heal those ulcers. Also, patient has been started on sucralfate as well. 2. Newly diagnosed gastric adenocarcinoma status post partial gastrectomy. The patient actually had been discharged from the hospital and being in the rehab facility for just 1 day. He had a gastrectomy at that time. Surgery is following but no new recommendations from their standpoint. 3. Atrial fibrillation/mechanical mitral valve replacement. The patient was on Coumadin since 2011. At this point, that medication has been stopped. He has been recommended to continue Lovenox for at least a month. We will follow recommendations. 4. Diabetes mellitus type 2. We will continue with Accu-Chek before meals and also at bedtime. 5. Hypothyroidism. We will continue with home doses of Synthroid. 6. Protein-calorie malnutrition. We will continue with Liquacel and Glucerna. 7. Hypertension. Blood pressure is stable. We will continue home medications. 8. Hyperlipidemia. We will continue with statin. 9. Disposition. At this point, patient is stable. At this point, we have a plan to continue with Lovenox for a month. Hemoglobin has been stable since admission so at this point I think we are going to continue with the same management. I think she should be discharged in the next 24 to 48 hours to rehab facility. cc: Darrin Pierson MD MTDD
[2019-04-27] MEDS: ZOCOR PO SCH (22:40)
--- NOTE | 2019-04-27 23:20 | PROVIDER PROGRESS NOTE ---
Progress Note SUBJECTIVE: No acute overnight events. No N/V/F, CP, SOB. Abdomina pain controlled. No BM. Tolerating diet. OBJECTIVE: Last Vital Signs Temp 97.7 F 04/27/19 19:41 Pulse 80 04/27/19 19:41 Resp 24 04/27/19 19:41 BP 157/52 04/27/19 19:41 Pulse Ox 96 04/27/19 19:41 Height 5 ft 6 in Weight 127 lb 4.8 oz GEN: awake, alert, NAD HEENT: anicteric, MMM, EOMI NECK: supple, no jvd CV: mitral valve click, no murmurs, RRR PULM: normal WOB, no wheezing ABD: midline incision with dressing c/d/i, j-tube in place EXT: no cce NEURO: nonfocal LABS: 04/27/19 04/27/19 04/27/19 06:41 06:55 06:57 WBC Hgb Plt Count INR 1.56 Sodium 143 Potassium 3.6 Chloride 111 H Carbon Dioxide 22 L BUN 5 L Creatinine 0.7 POC Glucose 93 04/27/19 06:57 WBC 5.75 Hgb 8.5 L Plt Count 322 INR Sodium Potassium Chloride Carbon Dioxide BUN Creatinine POC Glucose EGD 04/26/2019 FINDINGS: The esophagus was normal. At the point of the GE junction. There were three notable clean-based anastomotic ulcers that were partially circumferential along the suture line. There was no active bleeding. There was visible suture material. The jejunum appeared normal. ASSESSMENT AND PLAN: Ms Valerie Vallejo is a 68-year-old woman with a history of mechanical mitral valve on Coumadin, afib, hypertension, noninsulin-dependent diabetes, and recent hospitalization for acute blood loss anemia from gastric adenocarcinoma s/p subtotal gastrectomy and j-tube placement. EGD yesterday revealed anastomotic ulcers. She is clinically stable. #UGIB: from anastomotic ulcers; continue PPI BID and carafate QID; advance diet as tolerated; trend H/H transfuse prn for goal hgb 7-8 #Gastric adenocarcinoma: 2/2 subtotal gastrectomy and surgical j-tube: oncology and surgery following #Afib: rate controlled #Anemia: stable #Mechanical valve: on lovenox Will follow with you. Please call with questions.
--- NOTE | 2019-04-28 00:07 | GENERAL SURGERY PROGRESS NOTE ---
DATE: 04/27/2019 SUBJECTIVE: The patient is doing well. She denies abdominal pain, nausea, vomiting, or further GI bleeding. OBJECTIVE: Vital signs: She is afebrile. Vital signs are stable. General: She is awake, alert, oriented x3. No acute distress. Gastrointestinal: Soft, nontender, nondistended. Incision is clean, dry, and intact. LABORATORY: Her hemoglobin and hematocrit are stable. ASSESSMENT AND PLAN: A 68-year-old female with gastrointestinal bleed, likely secondary to anastomotic ulcer. She is on Lovenox twice daily and Carafate. We will restart her soft diet and anticipate she can be discharged soon. We will also get the meliza out of her abdominal incision. cc: Tobi Rockwell MD
[2019-04-28] MEDS: NS 1,000 ML IV SCH ×3 (03:34→14:37)
[2019-04-28] MEDS: LOVENOX SUBQ SCH ×2 (06:29→17:19)
[2019-04-28] MEDS: CARAFATE LIQUID PO SCH ×3 (06:29→17:19)
[2019-04-28] MEDS: SYNTHROID PO SCH (06:30)
[2019-04-28] MEDS: HUMULIN R SUBQ SCH ×4 (06:45→21:43)
[2019-04-28 07:39] LABS: INR 1.48; PROTIME 19.1 Seconds (11.0-16.0)
[2019-04-28 07:55] LABS: HEMOGLOBIN 8.2 g/dL (12.0-16.0); MCH 28.5 PG (27-31); MCHC 30.4 g/dL (33-37); MCV 93.8 FL (81-99); MPV 10.6 FL (7.4-10.4); RBC 2.88 XMIL (4.2-5.4); RDW 16.8 % (11.5-14.5); WBC 4.85 X1000 (4.8-10.8)
[2019-04-28 08:01] LABS: AGAP 7; BUN 8 mg/dL (8-22); CALCIUM 7.9 mg/dL (8.8-10.2); CHLORIDE 108 mmol/L (98-107); COSMO 277; CREATININE 0.7 mg/dL (0.5-0.9); ESTIMATED GFR > 60; GLUCOSE 91 mg/dL (70-104); POTASSIUM 3.3 mmol/L (3.5-5.1); SODIUM 140 mmol/L (136-145); TCO2 25 mmol/L (25-35)
[2019-04-28] MEDS: PROTONIX PO SCH ×2 (09:01→21:42)
[2019-04-28] MEDS: COREG PO SCH ×2 (09:01→21:42)
[2019-04-28] MEDS: VITAMIN B-12 PO SCH (09:01)
[2019-04-28] MEDS: LANOXIN PO SCH (09:02)
[2019-04-28] MEDS: ICAR-C PO SCH ×2 (09:10→21:42)
[2019-04-28] MEDS: CENTRUM SILVER PO SCH (09:12)
--- NOTE | 2019-04-28 14:17 | GASTROENTEROLOGY PROGRESS NOTE ---
DATE: 04/28/2019 SUBJECTIVE: The patient resting in chair. I spoke to the patient and at bedside. The patient is feeling better. She denies any nausea, vomiting, vomiting blood. She had her last bowel movement 2 days ago. She denies any blood in the stools. OBJECTIVE: Vital signs: Temperature 98.4, pulse rate of 80, respiratory rate 16, blood pressure 147/54, satting 97% on room air. Body weight of 121 pounds, 4.8 ounces, BMI 20.5 kg. General Appearance: Thinly built female sitting in chair, no acute distress. HEENT: Pale. No icterus. Neck: Supple. Abdomen: She has a G-tube in place. She has midline meliza; she has a midline scar from recent surgery. No guarding or rebound. Extremities: No cyanosis, clubbing. Neurologic: Neuro-rosa, alert, awake and oriented. LABS: Hemoglobin and hematocrit is 8.2 and 27, white count 4.85, platelet count of 316. INR 1.48, PT of 19.1. Sodium 140, potassium 3.3 chloride 108, bicarbonate 25, anion gap 7. BUN of 8, creatinine 0.7, glucose of 91, calcium is 7.9. Blood culture x2 negative at 48 hours from 04/23/2019. IMPRESSION AND PLAN: 1. Upper gastrointestinal bleeding secondary to anastomotic ulcers. She had a recent subtotal colon gastrectomy for gastric adenocarcinoma which was found in the gastric polyp which was resected as an outpatient by Dr. Zeng. We will continue to follow hemoglobin/hematocrit and transfuse as needed. Will continue on proton pump inhibitors twice daily and Carafate 4 times daily. 2. Anemia. It needs to be watched. 3. Gastric adenocarcinoma. Surgery and Oncology following. 4. Atrial fibrillation. Continue follow up with primary care team. 5. Mechanical heart valve. She is on Lovenox. Her risk of bleeding is high. I discussed that with the patient and the family at bedside. 6. Gastrointestinal prophylaxis. Proton pump inhibitors. I will start her on iron C b.i.d., multivitamins once daily for anemia. She is also getting IV iron. We will start her bowel regimen with Colace. The above plans discussed with the patient and family at bedside. All questions answered. Please call us with any further questions. cc: MD Alessio Gallo MD
--- NOTE | 2019-04-28 21:23 | PROGRESS NOTE ---
DATE: 04/28/2019 INTERVAL HISTORY: No acute event overnight. The patient is sitting by the bed. She states she had a bowel movement in the morningtime which was initially solid and then liquid without any blood. She has been tolerating diet without any difficulty. We discussed about exam findings. We discussed about continuing Lovenox. Plan of care discussed with her. Currently vitals suggest temperature 98 degrees, pulse 80, respiratory rate 22, blood pressure 146/53, saturating 100% room air. PHYSICAL EXAMINATION: General: Does not appear in any acute distress. No pallor, cyanosis, clubbing, or icterus. Lungs: Air entry bilaterally equal. No wheeze, rhonchi, or crackles. Heart: She has a mechanical S1, a normal S2. No murmur, rub, or gallop. Abdomen: Soft. She has a midline scar of partial gastrectomy as well as a drain coming out. There is mild generalized abdominal tenderness. Extremities: She does not have any lower extremity edema. LABORATORIES: Suggestive of hemoglobin of 8.2 which is stable. Her INR is 1.4. She does have hypokalemia which is being repleted. Normal kidney function. ASSESSMENT AND PLAN: 1. Acute gastrointestinal bleed leading to blood loss anemia from ulcers at the anastomotic site from previous partial gastrectomy which was performed in March 2019. Continue pantoprazole and sucralfate as per Gastroenterology recommendation. Her Coumadin has been stopped, and it has been changed to Lovenox. Coumadin could be resumed 30 days later if she continues to have stable hemoglobin and hip ulcers have healed. 2. Gastric adenocarcinoma status post partial gastrectomy. Surgery on board. No further recommendation. Continue current diet and advance as tolerated. 3. Atrial fibrillation and mechanical mitral valve replacement. Continue Lovenox at therapeutic dose for at least 30 days. 4. Other issues including hypothyroidism, diabetes mellitus type 2, essential hypertension, and hyperlipidemia that are stable, and I am going to continue her home medication of simvastatin, carvedilol, digoxin, cyanocobalamin, [place], and levothyroxine. DISPOSITION: The patient remains inside the hospital as I monitor her CBC tomorrow. If her CBC is okay, my plan is to discharge her back to [facility]. Plan of care discussed with her. All of her questions have been answered. She looks like also received a dose of intravenous iron yesterday. cc: Henri Ramírez MD
[2019-04-28] MEDS: ZOCOR PO SCH (21:41)
[2019-04-28] MEDS: KLOR-CON PO SCH (21:51)
[2019-04-29] MEDS: KLOR-CON PO SCH (01:27)
[2019-04-29] MEDS: CARAFATE LIQUID PO SCH ×3 (01:27→11:50)
[2019-04-29] MEDS: SYNTHROID PO SCH (06:29)
[2019-04-29] MEDS: LOVENOX SUBQ SCH (06:30)
[2019-04-29 07:09] LABS: INR 1.35; PROTIME 17.8 Seconds (11.0-16.0)
[2019-04-29] MEDS: HUMULIN R SUBQ SCH (08:15)
[2019-04-29] MEDS ORDERED: COLACE PO SCH (09:00)
[2019-04-29] MEDS: COREG PO SCH (09:53)
[2019-04-29] MEDS: LANOXIN PO SCH (09:53)
[2019-04-29] MEDS: VITAMIN B-12 PO SCH (09:54)
[2019-04-29] MEDS: PROTONIX PO SCH (09:54)
[2019-04-29] MEDS: CENTRUM SILVER PO SCH (09:54)
--- NOTE | 2019-04-29 10:26 | PROVIDER PROGRESS NOTE ---
Progress Note SUBJECTIVE: No acute overnight events. Afebrile. No vomiting, CP, SOB, abdominal pain. She is having bowel movements. No melena. She reports early satiety. No dysphagia. Oral iron causes nausea. Received IV iron yesterday. OBJECTIVE: Last Vital Signs Temp 98.3 F 04/29/19 08:37 Pulse 84 04/29/19 09:53 Resp 14 04/29/19 08:37 BP 146/52 04/29/19 08:37 Pulse Ox 100 04/29/19 08:37 Height 5 ft 6 in Weight 127 lb 4.8 oz GEN: awake, alert, NAD HEENT: anicteric, MMM, EOMI NECK: supple, no jvd CV: mitral valve click, no murmurs, RRR PULM: normal WOB, no wheezing ABD: midline incision c/d/i, j-tube in place EXT: no cce NEURO: nonfocal LABS: INR 1.35 ASSESSMENT AND PLAN: Ms Valerie Vallejo is a 68-year-old woman with a history of mechanical Mitral valve on Coumadin, Afib, hypertension, noninsulin-dependent diabetes, and gastric adenocarcinoma s/p subtotal gastrectomy and j-tube placement who was admitted for UGIB from anastomotic ulcers. She is clinically stable. Reports early satiety likely from small gastric pouch and ulcers. Nausea from oral iron. # UGIB: from anastomotic ulcers; continue PPI BID for 3 months and carafate QID for 1 month. She will need repeat EGD in 3 months to assess for ulcer healing # Nausea: stopped oral iron; antiemetics as needed # Gastric adenocarcinoma: 2/2 subtotal gastrectomy and surgical j-tube: oncology and surgery following; prelim gross path negative for metastatic disease # Afib: rate controlled # Anemia: stable # Mechanical valve: on lovenox Follow-up with me in 2-4 weeks. Will sign off. Please call with questions.
[2019-04-29 11:38] VITALS: BP 136/49
--- NOTE | 2019-04-29 15:04 | DISCHARGE SUMMARY ---
ADMISSION DATE: 04/23/2019 DISCHARGE DATE: 04/29/2019 DISCHARGE DISPOSITION: To [facility]. DISCHARGE CONDITION: Hemodynamically stable, alert, oriented x3. She is able to come out of bed without anyone's support. She does not have any more bloody bowel movements. DISCHARGE DIAGNOSES: 1. Acute upper gastrointestinal bleed. 2. Acute blood loss anemia. 3. Ulcers at the anastomotic junction of recently performed partial gastrectomy. 4. Chronic anticoagulation for mechanical mitral valve. 5. Recently diagnosed gastric adenocarcinoma. 6. Atrial fibrillation. OTHER DIAGNOSES: 1. History of hypothyroidism. 2. History of [id number] diabetes mellitus type 2. 3. Essential hypertension. 4. Hyperlipidemia. CONSULTATION DURING HOSPITAL ADMISSION: 1. General Surgery, Dr. Rockwell. 2. Gastroenterology, Dr. Jones. PROCEDURES DURING HOSPITAL ADMISSION: The patient underwent upper EGD by Gastroenterology, which had suggested anastomotic ulcers which were clean based, partially circumferential along the suture line without any active bleeding. DISCHARGE VITAL SIGNS: Temperature 98.6 degrees, pulse 80, respiratory rate 24, blood pressure 136/49, saturating 100% on room air. PHYSICAL EXAMINATION: General: Does not appear in acute distress. HEENT: Oral cavity does not have pallor. It is moist. No conjunctival pallor. No cyanosis, clubbing or icterus. Lungs: Air entry bilateral equal. No wheeze, rhonchi, crackles. Cardiovascular: S1 is mechanical. S2 is normal. Mild systolic murmur. No rub or gallop. Abdomen: Soft. There is a drain that is coming out from epigastric region, mildly tender. Extremities: No lower extremity edema. Neurologic: She is alert and oriented x3. SIGNIFICANT LABORATORY DATA DURING HOSPITAL ADMISSION: Her hemoglobin was 10.1 on presentation, which had decreased to 8.7. At the time of discharge, it was 8.2. Her platelets were 316,000. Her BUN was 8, creatinine of 0.7. Significant microbiology: Blood culture did not have any growth. The patient did not receive any blood transfusion. SIGNIFICANT IMAGING DURING HOSPITAL ADMISSION: Chest x-ray on admission had stable chest. Abdominal x-ray had mild ileus. HOSPITAL COURSE SUMMARY: Ms. Vallejo is a 68-year-old lady with recently diagnosed history of gastric adenocarcinoma secondary to gastrointestinal bleed who underwent partial gastrectomy by Dr. Rockwell. Apparently, she did have history of atrial fibrillation and mechanical mitral valve for which she was on chronic anticoagulation, so she was discharged on Lovenox with Coumadin bridge. However, on the day of presentation, she had 4 to 5 bright red bloody bowel movements associated with nausea and shortness of breath. She came back from [facility]. On arrival, she was found to be tachycardic. She was resuscitated with intravenous fluids and closely monitor, and she underwent EGD which had detected anastomotic site ulcers. However, they were not bleeding. She was treated with Protonix and sucralfate. At the time of discharge, she is having regular bowel movements, which do not look bloody. She is hemodynamically stable. The patient is advised to take Protonix and sucralfate for 3 months and 1 month respectively. She will be discharged on enoxaparin. The plan is to keep her on enoxaparin therapeutic dose for at least 30 days at what point warfarin should be resumed and enoxaparin should be discussed. Enoxaparin should be discontinued when warfarin levels are therapeutic considering her mechanical mitral valve. This anticoagulation management should be done under her sourcing analyst or regular physician's supervision. DISCHARGE MEDICATIONS: 1. Simvastatin 20 mg at nighttime. 2. Metformin 500 mg b.i.d. 3. Digoxin 125 mcg daily. 4. Furosemide 20 mg daily. 5. Lisinopril 10 mg daily. 6. Spironolactone 25 mg daily. 7. Levothyroxine 100 mcg daily. 8. Cyanocobalamin 1000 mcg daily. 9. Sucralfate 1 g every 6 hours for 30 days. 10. Multivitamin with minerals 1 tablet daily. 11. Docusate 1 tablet of 100 mg daily. 12. Carvedilol 6.25 mg b.i.d. 13. Lovenox 60 mg subcu every 12 hours. 14. A prescription of 50 syringes would be provided, the patient might need after the rehab stay. 15. Pantoprazole 40 mg b.i.d. for 3 months. 16. Acetaminophen 650 mg p.o. q.6 hours as needed. 17. Ondansetron 4 mg IV q.4 hours as needed for nausea and vomiting. 18. The patient also had history of chronic pain for which she will be given a 10 tablets prescription of [place] 7.5 mg. DISCHARGE INSTRUCTIONS: She should get a repeat CBC and BMP in 3 days. TIME SPENT: More than 30 minutes were spent discharging the patient. cc: Henri Ramírez MD
--- NOTE | 2019-04-29 19:29 | GENERAL SURGERY PROGRESS NOTE ---
DATE: 04/29/2019 SUBJECTIVE: She is feeling better. No abdominal pain, nausea, vomiting, or melena. She is eating. OBJECTIVE: Vital Sign: She is afebrile. Vital signs are stable. General: She is awake, alert, and oriented x3. No acute distress. Gastrointestinal: Soft, nontender, nondistended. Her incision is healing well. LABORATORY: Hemoglobin 8.2, hematocrit 27. ASSESSMENT AND PLAN: A 68-year-old female status post near-total gastrectomy for adenocarcinoma. She was readmitted for upper gastrointestinal bleed secondary to anastomotic ulcer. This appears to be healing and not bleeding any further. She should continue her Protonix as prescribed by the speech correction consultant, and I agree with the plan of Lovenox for the next month without any Coumadin. She should also continue the Carafate per the speech correction consultant's recommendations. She will follow up with me in my office in the next couple of weeks for a postoperative check. cc: Tobi Rockwell MD
== END 2019-04-29 16:28 | DRG 378 ==
LOC: SUPCPDRO → ED 10:19 → 3S 15:24 → SUATTDRO 15:24 → 3S 18:23 → 4N 04-25 17:57
PROVIDERS: ATTEND Internal Medicine
CPT/HCPCS: 71010; 71045; 74019; 74020; 74022; 80048; 80053; 81001; 82570; 82948; 83605; 83735; 84300; 84484; 84540; 85014; 85018; 85025; 85027; 85610; 85730; 86850; 86870; 86900; 86901; 86905; 86922; 87040; 93005; 93010; 94761; 96361; 96374; 99285; A9270; J1439; J1650; J2405; J7030; J7050; XXXXX